=== PATIENT | female | born 1950 | race African-American/Black ===

== ENCOUNTER → 2019-07-01 11:06 | Outpatient (CLI) | payer BC, SELFPAY ==
--- NOTE | ~2019-07-01 | XR_ITS ---
EXAMINATION: XR shoulder RT min 2V DATE: 07/01/2019 11:29 INDICATION: Right arm pain. TECHNIQUE: 4 views of right shoulder were obtained. COMPARISON: None. FINDINGS: Bone alignment is normal. No fracture. There is mild osteoarthritis of glenohumeral joint a nd acromioclavicular joint. There is a dystrophic calcification posterior to the humeral head. IMPRESSION: 1. Mild polyarticular osteoarthritis. Reviewed, dictated and finalized at location A. D MARKETING SPECIALIST
--- NOTE | ~2019-07-01 | XR_ITS ---
EXAMINATION: XR elbow RT 2V DATE: 07/01/2019 11:29 INDICATION: Right arm pain. TECHNIQUE: 2 views of the right elbow were obtained. COMPARISON: None. FINDINGS: Bone alignment is normal. No fracture. There is mild elbow joint osteoarthritis. IMPRESSION: 1. Mild elbow joint osteoarthritis. Reviewed, dictated and finalized at location A. RANCE ADJUSTER
== END ==
PROVIDERS: PCP Family Medicine; Visit Provider Family Medicine
DX: M79.601 Pain in right arm (principal); M15.9 Polyosteoarthritis, unspecified
CPT/HCPCS: 73030; 73070

== ENCOUNTER → 2021-01-10 12:39 | Outpatient (CLI) | payer MEDICARE, SELFPAY ==
--- NOTE | ~2021-01-10 | XR_ITS ---
XR lumbar spine min 4V DATE: 01/10/2021 14:04 INDICATION: Low back pain TECHNIQUE: AP, lateral, coned lateral lumbosacral views and bilateral oblique views COMPARISON: None FINDINGS: There is mild levoscoliosis. No fracture or bone destruction. The lumbar pedicles are intact. There is moderate degenerative disc disease at L1-2, severe degenerative disc disease at L2-3 and mo derately severe degenerative disc disease at L3-4 and L4-5. There is associated minimal retrolisthesis at L2-3. L5-S1 interspace is well preserved. No fracture or bone destruction is detected. The lumbar pedicles are intact. There is degenerative change at the apophyseal joints but no associated anterolisthesis. The sacroiliac joints are intact. IMPRESSION: Multilevel degenerative disc disease Reviewed, dictated and finalized at location A.
== END ==
PROVIDERS: PCP Family Medicine; Visit Provider Physician Assistant
DX: M51.36 Other intervertebral disc degeneration, lumbar region (principal)
CPT/HCPCS: 72110

== ENCOUNTER → 2021-07-01 14:47 | Outpatient (CLI) | payer MEDICARE, SELFPAY ==
--- NOTE | ~2021-07-01 | MM_ITS ---
EXAMINATION: MM screening virgil BI w armani HISTORY: Screening TECHNIQUE: Craniocaudal and mediolateral oblique 3-D tomosynthesis images were obtained and synthetic 2-D images were generated. CAD analysis was submitted and interpreted. COMPARISON: Comparison to multiple prior studies sequentially, with oldest reviewed study dated 06/2011. BREAST PARENCHYMAL COMPOSITION: There are scattered areas of fibroglandular density. FINDINGS: There is no evidence of suspicious mass, calcification, or architectural distortion to sugg est malignancy in either breast. There has been no suspicious interval change. IMPRESSION: 1. No mammographic evidence of malignancy. 2. Recommend routine screening mammography in one year. BI-RADS Category 1: Negative Reviewed, dictated and finalized at location A. NG MACHINE OPERATOR
== END ==
PROVIDERS: PCP Obstetrics & Gynecology; Visit Provider Obstetrics & Gynecology
DX: Z12.31 Encounter for screening mammogram for malignant neoplasm of breast (principal)
CPT/HCPCS: 77063; 77067

== ENCOUNTER 2022-07-06 08:54 | Emergency (ER) | payer MEDICARE, SELFPAY ==
--- NOTE | ~2022-07-06 | CT_ITS ---
EXAMINATION: CT abdomen pelvis wo con DATE: 07/06/2022 12:40 INDICATION: Flank pain TECHNIQUE: Computed tomography (CT) of the abdomen and pelvis was performed without intravenous contr ast. The dose-length product was 1074.72 mGy-cm. Automated exposure control and iterative reconstruct ion technique were employed. COMPARISON: None. FINDINGS: There is a 2.3 cm right middle lobe nodule, suspicious for malignancy. This abuts the right cardiac contour making percutaneous biopsy difficult. There is atherosclerosis and ectasia of the de scending thoracic aorta with fusiform aneurysm measuring 4.2 cm. There is mild diffuse thickening of the gastric wall. No lymphadenopathy. Colonic diverticulosis without evidence for diverticulitis. The liver, spleen, pancreas, adrenal glands and left kidney are unremarkable. Right kidney is unremar kable. No hydronephrosis. Gallbladder is present. There is a cyst of the liver, left hepatic lobe jong suring 1.8 cm. The spleen, pancreas, adrenal glands and kidneys are unremarkable. No ureteral stones or hydronephrosis. Gallbladder is present. Colonic diverticulosis without evidence for diverticulitis . Nonobstructive bowel pattern. There is levoscoliosis of the lumbar spine. There is moderate lumbar spondylosis. IMPRESSION: 1. No acute abdominal abnormality. 2: Right middle lobe nodule measuring 2.3 cm, abutting the right cardiac contour, suspicious for bro nchogenic carcinoma. 3: Atherosclerosis with fusiform descending thoracic aortic aneurysm measuring 4.2 cm. Reviewed, dictated and finalized at location A. COVERER IMPRESSION: 1. No acute abdominal abnormality. 2: Right middle lobe nodule measuring 2.3 cm, abutting the right cardiac conto ur, suspicious for bronchogenic carcinoma. 3: Atherosclerosis with fusiform descending thoracic aortic aneurysm measuring 4.2 cm.
[2022-07-06 08:59] VITALS: BP 149/109; PULSE 54; RESP 15; TEMP 36.6; O2SAT 100
[2022-07-06 09:33] LABS: Basophils Absolute Auto 0.1 K/mm3 (0.0-0.1); Basophils Percent Auto 0.9 % (0.2-1.2); Eosinophils Absolute Auto 0.1 K/mm3 (0-0.3); Eosinophils Percent Auto 0.9 % (0-4.4); Hematocrit 38.4 % (37.0-47.0); Hemoglobin 12.4 g/dL (12.0-15.0); Immature Granulocyte Absolute 0.03 K/mm3 (0.00-0.031); Immature Granulocyte Percent A 0.5 % (0-0.5); Lymphocytes Absolute Auto 2.26 K/mm3 (0.9-3.2); Lymphocytes Percent Auto 34.7 % (18.3-44.2); Mean Corpuscular HGB Conc 32.3 g/dl (32-36); Mean Corpuscular Hemoglobin 30.4 pg (26-34); Mean Corpuscular Volume 94.1 fl (80-100); Mean Platelet Volume 11.2 fl (7.4-10.4); Monocytes Absolute Auto 0.6 K/mm3 (0.1-0.6); Monocytes Percent Auto 8.6 % (2.6-8.5); Neutrophils Absolute Auto 3.6 K/mm3 (1.3-6.7); Neutrophils Percent Auto 54.4 % (45.5-73.1); Platelet Count Result 211 k/mm3 (150-375); Red Blood Count 4.08 M/mm3 (4.2-5.4); Red Cell Distribution Width 13.4 % (11.5-14.5); White Blood Count 6.5 K/mm3 (4.5-10.0)
[2022-07-06 09:41] LABS: Alanine Aminotransferase 23 U/L (6-35); Albumin Level 4.2 g/dL (3.5-5.1); Alkaline Phosphatase 107 U/L (38-126); Anion Gap 4 mmol/L (8-16); Aspartate Amino Transferase 34 U/L (14-36); Bilirubin,Total 0.8 mg/dL (0.2-1.3); Blood Urea Nitrogen 27 mg/dL (7-17); Calcium 9.2 mg/dL (8.4-10.2); Carbon Dioxide 28 mmol/L (22-30); Chloride 107 mmol/L (98-107); Estimated CRCL calculation 38 ml/min; Estimated Glomerular Filt Rate 39; Glucose 105 mg/dL (65-110); Lipase 56 U/L (23-300); Sodium 139 mmol/L (137-145)
--- NOTE | 2022-07-06 09:48 | ED.ABDPAIN ---
HPI - Abdominal Pain General Chief Complaint: Abdominal Pain Stated Complaint: woke up this morning with stomach pain Time Seen by Provider: 07/06/22 09:18 History of Present Illness HPI narrative: Patient is a 71-year-old female who presents ER with abdominal discomfort. Sudden onset this morning when waking up. Cramping in her epigastrium radiating around bilaterally to her back. Associate with diarrhea and some nausea. No vomiting. No fevers or chills or sweats. Reports left-sided upper abdominal cramping with right-sided back discomfort at this time. No difficulty breathing. No urinary frequency urgency or dysuria. No known sick contacts. No history of gallstones. Related Data Home Medications Medication Instructions Recorded Confirmed fluticasone propionate 50 1 spray intranasal DAILY 09/02/21 02/18/22 mcg/actuation nasal spray,suspension fexofenadine 30 mg tablet 30 mg PO DAILY 03/07/22 Allergies Allergy/AdvReac Type Severity Reaction Status Date / Time No Known Allergies Allergy Verified 03/07/22 09:12 Review of Systems Review of Systems: All systems reviewed & are unremarkable except as noted in HPI and below Constitutional: Constitutional: Denies chills, Denies fatigue and Denies fever(s) ENT: Denies nasal congestion and Denies sore throat Cardiovascular: Cardiovascular: Denies chest pain, Denies rapid heart rate and Denies radiating jaw, neck or arm pain Respiratory: Respiratory: Denies cough and Denies dyspnea Gastrointestinal: Gastrointestinal: Reports abdominal pain, Reports diarrhea, Reports nausea and Denies vomiting Genitourinary: Genitourinary: Denies hematuria, Denies nocturia, Denies dysuria and Denies flank pain Musculoskeletal: Musculoskeletal: Reports back pain, Denies arthralgias and Denies joint swelling [facility] Past Medical History Medical History Chronic rhinitis Essential (primary) hypertension Hyperparathyroidism MICHAEL on CPAP Rhinitis Subaortic stenosis Surgical History Surgical History History of cataract extraction 09/11/2010 History of salpingectomy Right side 09/12/2013 Family History Family History Mother Diabetes mellitus Family history of arthritis Father Patient's father is in good health Social History Social History Smoking status: Never smoker Second hand tobacco smoke exposure: No Alcohol intake: never Substance use: never Substance use type: does not use Living arrangements: with family Occupation/Education: occupation Gender identity (if verbalized by the patient): Female Spiritual care concerns: Yes Agree to blood products: Yes Exam Narrative: GENERAL: Well-appearing, well-nourished, and in no acute distress. HEAD: Normocephalic, atraumatic. EYES: PERRL and EOMI. ENT: Mucous membranes moist. CHEST: Clear to auscultation. No respiratory distress. HEART: Regular rate and rhythm. Normal peripheral pulses. ABDOMEN: Soft, nontender, nondistended. No CVA tenderness. EXTREMITIES: Normal range of motion. No edema. SKIN: Warm, dry, no rash. NEURO: Alert and oriented x3. PSYCH: Normal mood and affect. Course Course Emergency Course: Patient informed of lab results and imaging results. Discussed need for follow-up with Dr. Kasper for further evaluation of the lung nodule which could represent bronchogenic carcinoma. Milligram nausea or any discomfort and is ready for discomfort. Consultations Consultation #1: Discussed case with Dr. Cat. Discussed the lung nodule that is concerning for bronchogenic carcinoma. He will send a message to the patient's PCP Dr. Potter so this can continue to be worked up. Date: 07/06/22 Time: 13:07 Vital Signs Vital signs: Vital Signs Woodson
[2022-07-06] MEDS: SODIUM CHLORIDE 0.9% IV 1,000 ML 999 ML IV CONT (09:56)
[2022-07-06] MEDS: MORPHINE SULFATE (*CRX) 4 MG/ML INJ IV PUSH (09:56)
[2022-07-06] MEDS: ONDANSETRON INJ 4 MG/2 ML VIAL IV PUSH (09:57)
--- NOTE | 2022-07-06 10:13 | PC.NURSE ---
Pt attempted to give urine sample and is unable to at this time.
[2022-07-06 12:16] LABS: Appearance Urine Clear (Clear); Bilirubin Urine 1+ (Negative); Blood Urine Negative (Negative); Color Urine Yellow (Yellow); Glucose Urine UA Negative (Negative); Ketones Urine Trace mg/dL (Negative); Leukocyte Esterase Ur Negative LEU/UL (Negative); Nitrate Urine Negative (Negative); Protein Urine Trace mg/dL (Negative); Specific Grav Ur 1.025 (1.001-1.035); Urobilinogen Urine 0.2 mg/dL (<2.0); pH Urine 5.5 (5.0-9.0)
[2022-07-06 12:21] LABS: Mucus Urine Few /lpf; Squamous Epithelial Cell Urine Rare /hpf (Few); WBC Urine 0-3 /hpf
[2022-07-06 12:22] LABS: Add Urine Microscopic? YES
[2022-07-06 13:31] VITALS: BP 123/69; PULSE 48; RESP 16; O2SAT 95
== END 2022-07-06 13:36 | disposition home or self-care (01) ==
PROVIDERS: Emergency Provider Emergency Medicine; PCP Family Medicine
DX: R91.1 Solitary pulmonary nodule (principal); R11.0 Nausea; I10 Essential (primary) hypertension; E21.3 Hyperparathyroidism, unspecified; I42.1 Obstructive hypertrophic cardiomyopathy; G47.33 Obstructive sleep apnea (adult) (pediatric); Z98.49 Cataract extraction status, unspecified eye; Z90.79 Acquired absence of other genital organ(s)
CPT/HCPCS: 36415; 51701; 74176; 80053; 81001; 83690; 85025; 96361; 96374; 96375; 99284; J2270; J2405; J7030

== ENCOUNTER 2022-07-22 15:16 | Outpatient (CLI) | payer MEDICARE, SELFPAY ==
--- NOTE | ~2022-07-22 | CT_ITS ---
EXAMINATION:CT diagnostic chest wo con DATE: 07/22/2022 15:39 INDICATION: Lung mass. TECHNIQUE: Computed tomography (CT) of the chest was performed without intravenous contrast. Automate d exposure control and iterative reconstruction technique were employed. The dose-length product (DLP ) was 329.29 mGy-cm. COMPARISON: CT abdomen and pelvis 07/06/2022 FINDINGS: The lungs demonstrate mild atelectasis. There is a 2.0 cm nodule in right middle lobe abutt ing the heart. There is a 6 mm nodule in right lower lobe. There is a small left pleural effusion. Th ere is a 2.1 cm cyst in the liver. Cardiomegaly is noted. There is a small pericardial effusion. The aorta measures 3.7 cm at the sinuses of Valsalva, 3.2 cm at the sinotubular junction, 4.0 cm in the m id ascending aorta, 3.8 cm in the aortic isthmus, 5.1 cm in the proximal descending aorta, and 4.6 cm in the distal descending aorta. There is asymmetric peripheral hyperdensity in the descending aorta. There is mild thoracic spondylosis. Thoracic dextrocurvature is noted. IMPRESSION: 1. 2.0 cm nodule in right lung middle lobe abutting the heart, consistent with primary bronchogenic c arcinoma. 2. 6 mm nodule in right lung lower lobe, probably benign. 3. 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 Asymmetric peripheral hyperdensity in the a sanju is suspicious for a subacute intramural hematoma. Chest CTA is recommended. I called this result to Bola Johnston. 4. Small left pleural effusion, new from 07/06/22. 5. Small pericardial effusion, new from 07/06/22. Reviewed, dictated and finalized at location A. ATION TENDER HELPER IMPRESSION: 1. 2.0 cm nodule in right lung middle lobe abutting the heart, consistent with primary bronchogenic carcinoma. 2. 6 mm nodule in right lung lower lobe, probably benign. 3. 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 Asymmetric peripheral hyperdensity in the aorta is suspicious for a subacute intramural hematoma. Ch est CTA is recommended. I called this result to Bola Johnston. 4. Small left pleural effusion, new from 07/06/22. 5. Small pericardial effusion, new from 07/06/22.
== END 2022-07-22 15:17 | disposition home or self-care (01) ==
PROVIDERS: PCP Family Medicine; Visit Provider Internal Medicine Critical Care Medicine
DX: R91.8 Other nonspecific abnormal finding of lung field (principal); J90 Pleural effusion, not elsewhere classified; I31.39 Other pericardial effusion (noninflammatory); I71.40 Abdominal aortic aneurysm, without rupture, unspecified
CPT/HCPCS: 71250

== ENCOUNTER 2022-07-23 17:36 | Emergency (ER) | payer MEDICARE, SELFPAY ==
[2022-07-23] VITALS (7 sets, daily range): BP systolic 117–143; BP diastolic 72–97; PULSE 67–85; RESP 16–33; TEMP 36.6–37.2; O2SAT 95–99
--- NOTE | ~2022-07-23 | CT_ITS ---
EXAMINATION: CTA chest DATE: 07/23/2022 19:10 INDICATION: poss intramural hematoma of thoracic aneurysm TECHNIQUE: Computed tomography (CT) of the chest was performed with 100 mL Omnipaque-350 intravenous contrast timed for arterial opacification. Automated exposure control and iterative reconstruction te chnique were employed. The dose-length product was 561.56 mGy-cm. COMPARISON: 07/22/2022. FINDINGS: CHEST: Thoracic aorta: 5.1 cm fusiform aneurysm of the aortic arch. Aorta measures 3.8 cm at the hiatus and 3.9 cm in the ascending aorta. Intramural thrombus extending from the arch at the level of the left s ubclavian origin, down the full length of the descending aorta and out of the [id number]. Maximum thickness of the intramural thrombus 1.6 cm. Narrowest point of the normal thoracic aortic lumen avery ures 3.1 cm. 0.7 x 1.7 cm ulcer-like projection of contrast into the mural thrombus just distal to th e arch. Lung parenchyma and airways: Motion artifact. Senescent changes. Lingular and bibasilar scar/atelecta sis. 2 cm right middle lobe nodule. Thoracic inlet, axillae and chest wall: No thyroid or soft tissue mass. No axillary lymphadenopathy. Mediastinum: No mass or lymphadenopathy. Heart and pericardium: Cardiomegaly. Aortic valve calcification. Coronary artery calcifications: Moderate. Pleura: Small volume left pleural fluid collection. Upper abdomen: No significant finding. Thoracic bones: No acute osseous finding in the chest. IMPRESSION: 5.1 cm fusiform aneurysm of the descending thoracic aorta, with associated Newberry B type intramural thrombus measuring up to 1.6 cm in greatest thickness. 1.7 cm penetrating ulcer in the proximal aspe ct of the descending thoracic aorta. Recommend vascular consultation. Reviewed, dictated and finalized at location K. OUNDING PHARMACY TECHNICIAN IMPRESSION: 5.1 cm fusiform aneurysm of the descending thoracic aorta, with associated Nick duong B type intramural thrombus measuring up to 1.6 cm in greatest thickness. 1 .7 cm penetrating ulcer in the proximal aspect of the descending thoracic aorta . Recommend vascular consultation.
--- NOTE | 2022-07-23 17:53 | ECG_ITS ---
Measurements Intervals [place] Rate: 83 P: 12 IN: 189 QRS: -2 QRSD: 110 T: 160 QT: 412 QTc: 487 Interpretive Statements SINUS RHYTHM POSSIBLE LEFT ATRIAL ENLARGEMENT LEFT VENTRICULAR HYPERTROPHY AND ST-T CHANGE ST-T WAVE ABNORMALITY IN ANTEROLATERAL LEADS- CONSIDER ISCHEMIA BASELINE ARTIFACT- I, II, III, AVR, AVL, AVF ABNORMAL ECG NO PREVIOUS ECG AVAILABLE FOR COMPARISON Electronically Signed On 07-23-2022 19:00:37 ROVING DEPARTMENT END FINDER by Rubin Carrizales D.O.
[2022-07-23 18:01] LABS: Basophils Absolute Auto 0.1 K/mm3 (0.0-0.1); Basophils Percent Auto 0.6 % (0.2-1.2); Eosinophils Absolute Auto 0.1 K/mm3 (0-0.3); Eosinophils Percent Auto 1.4 % (0-4.4); Hematocrit 35.6 % (37.0-47.0); Hemoglobin 11.5 g/dL (12.0-15.0); Immature Granulocyte Absolute 0.03 K/mm3 (0.00-0.031); Immature Granulocyte Percent A 0.3 % (0-0.5); Lymphocytes Absolute Auto 2.44 K/mm3 (0.9-3.2); Lymphocytes Percent Auto 23.9 % (18.3-44.2); Mean Corpuscular HGB Conc 32.3 g/dl (32-36); Mean Corpuscular Hemoglobin 29.9 pg (26-34); Mean Corpuscular Volume 92.7 fl (80-100); Mean Platelet Volume 10.3 fl (7.4-10.4); Monocytes Absolute Auto 1.2 K/mm3 (0.1-0.6); Monocytes Percent Auto 11.3 % (2.6-8.5); Neutrophils Absolute Auto 6.4 K/mm3 (1.3-6.7); Neutrophils Percent Auto 62.5 % (45.5-73.1); Platelet Count Result 471 k/mm3 (150-375); Red Blood Count 3.84 M/mm3 (4.2-5.4); Red Cell Distribution Width 13.1 % (11.5-14.5); White Blood Count 10.2 K/mm3 (4.5-10.0)
[2022-07-23 18:20] LABS: Alanine Aminotransferase 24 U/L (6-35); Albumin Level 4.1 g/dL (3.5-5.1); Alkaline Phosphatase 182 U/L (38-126); Anion Gap 8 mmol/L (8-16); Aspartate Amino Transferase 29 U/L (14-36); Bilirubin,Total 1.5 mg/dL (0.2-1.3); Blood Urea Nitrogen 22 mg/dL (7-17); Calcium 9.4 mg/dL (8.4-10.2); Carbon Dioxide 25 mmol/L (22-30); Chloride 107 mmol/L (98-107); Estimated CRCL calculation 36 ml/min; Estimated Glomerular Filt Rate 36; Glucose 112 mg/dL (65-110); Lipase 109 U/L (23-300); Potassium 3.5 mmol/L (3.4-5.0); Sodium 140 mmol/L (137-145)
[2022-07-23 18:28] LABS: INR 1.2; Prothrombin Time 15.1 Seconds (11.1-14.7)
[2022-07-23 18:29] LABS: Partial Thromboplastin Time 36.7 SECONDS (22.3-36.8)
[2022-07-23 18:30] LABS: Troponin I 0.015 ng/mL (0.000-0.034)
--- NOTE | 2022-07-23 18:40 | ED.CHESTPAIN ---
HPI - Chest Pain General Chief Complaint: Chest Pain Stated Complaint: sent by PCP Time Seen by Provider: 07/23/22 18:05 History of Present Illness HPI narrative: Patient is a 71-year-old female presenting with abnormal outpatient CT scan. Patient states that she was recently seen here with abdominal pain. An abdominal CT was obtained at that time which showed a spot on her lungs. She followed up with her skin lifter bacon who obtained a chest CT. This was obtained yesterday and she received a call today to come to the ER for more imaging. States that she had some back pain yesterday but she no longer does. States that she feels well currently. Denies chest pain, shortness of breath, lightheadedness, numbness or weakness, vomiting, abdominal pain. Related Data Home Medications Medication Instructions Recorded Confirmed fluticasone propionate 50 1 spray intranasal DAILY 09/02/21 07/07/22 mcg/actuation nasal spray,suspension fexofenadine 30 mg tablet 30 mg PO DAILY 03/07/22 07/07/22 Allergies Allergy/AdvReac Type Severity Reaction Status Date / Time No Known Allergies Allergy Verified 07/23/22 17:51 Review of Systems Review of Systems: All systems reviewed & are unremarkable except as noted in HPI and below PMFSH Past Medical History Medical History Back pain Chronic rhinitis Essential (primary) hypertension Hyperparathyroidism MICHAEL on CPAP Rhinitis Subaortic stenosis Surgical History Surgical History History of cataract extraction 09/11/2010 History of salpingectomy Right side 09/12/2013 Family History Family History Mother Diabetes mellitus Family history of arthritis Father Patient's father is in good health Social History Social History Smoking status: Never smoker Second hand tobacco smoke exposure: No Alcohol intake: never Substance use: never Substance use type: does not use Living arrangements: with family Occupation/Education: occupation Gender identity (if verbalized by the patient): Female Spiritual care concerns: Yes Agree to blood products: Yes Exam Narrative: GENERAL: Well-appearing, well-nourished, and in no acute distress. HEAD: Normocephalic, atraumatic. EYES: PERRLA and EOMI. ENT: Nares clear, no rhinorrhea or epistaxis. Mucous membranes moist. NECK: Supple. CHEST: Clear to auscultation. No respiratory distress. HEART: Regular rate and rhythm. No murmur heard. Normal peripheral pulses. ABDOMEN: Soft, nontender, nondistended EXTREMITIES: Normal range of motion. No edema. SKIN: Warm, dry, no rash. NEURO: No focal deficits. Alert and oriented x3. PSYCH: Normal mood and affect. Course Vital Signs Vital signs: Vital Signs Temperature 97.8 F 07/23/22 17:46 Pulse Rate 85 07/23/22 17:46 Respiratory Rate 18 07/23/22 17:46 Blood Pressure 125/93 H 07/23/22 17:46 Pulse Oximetry 98 07/23/22 17:46 Oxygen Delivery Room Air 07/23/22 17:46 Temperature 98.9 F 07/23/22 22:35 Pulse Rate 77 07/23/22 22:35 Respiratory Rate 16 07/23/22 22:35 Blood Pressure 137/97 H 07/23/22 22:35 Pulse Oximetry 96 07/23/22 22:35 Oxygen Delivery Room Air 07/23/22 17:51 MDM - Chest Pain MDM Narrative Medical decision making narrative: Patient is a 71-year-old female presenting for abnormal outpatient CT scan. Vitals within normal limits. Patient is well-appearing and in no acute distress. Exam remarkable for the above. Per chart review, outpatient chest CT shows possible subacute intramural hematoma of thoracic descending aneurysm. CTA chest advised. This has been ordered. Blood work is similar to prior values. CTA chest shows 5.1 cm fusiform aneurysm of the descending thoracic aorta, with associate
--- NOTE | 2022-07-23 19:09 | PC.NURSE ---
bedside shift report given to nadya romero
[2022-07-23] MEDS: SODIUM CHLORIDE 0.9% IV 1,000 ML 999 ML IV CONT (19:31)
== END 2022-07-23 22:37 | disposition home or self-care (01) ==
PROVIDERS: Emergency Medicine; Emergency Provider Emergency Medicine; PCP Family Medicine
DX: I71.23 Aneurysm of the descending thoracic aorta, without rupture (principal); I71.9 Aortic aneurysm of unspecified site, without rupture; I10 Essential (primary) hypertension; G47.33 Obstructive sleep apnea (adult) (pediatric)
CPT/HCPCS: 36415; 71275; 80053; 83690; 84484; 85025; 85610; 85730; 93005; 96360; 96361; 99284; J7030; Q9967

== ENCOUNTER 2022-08-19 07:37 | Outpatient (CLI) | payer MEDICARE, SELFPAY ==
--- NOTE | ~2022-08-19 | PE_ITS ---
EXAMINATION: PET skull to mid thigh DATE: 08/19/2022 09:36 INDICATION: Lung nodule TECHNIQUE: Blood glucose level was 109 mg/dL. 10.314 mCi of 18-fluorodeoxyglucose (18-FDG) was admini stered i.v. Low dose computed tomography (CT) images were acquired from the base of the brain to the proximal thighs for attenuation correction and anatomic localization. Positron emission tomography (P ET) images were acquired in the same distribution beginning 59 minutes after injection. The dose-randolph th product (DLP) was 789.73 mGy-cm. COMPARISON: 07/22/2022 FINDINGS: Head/neck: No abnormal FDG uptake is identified. FDG uptake in the oral cavity without suspicious CT correlate is likely physiologic. There are no pathologically enlarged lymph nodes. Chest: There is a 2 cm nodule of the right middle lobe abutting the heart with abnormal FDG uptake an d SUV max of 7.9. The 6 mm nodule in the medial right lower lobe described on the comparison does not demonstrate FDG uptake, but this could be due to small size. Again noted is a 5.1 cm fusiform aneury sm of the proximal descending aorta. No pathologically enlarged thoracic lymph nodes are identified. The heart size is normal. No pleural effusion or pneumothorax. There is mild dependent atelectasis. Abdomen/pelvis/proximal thighs: No abnormal FDG uptake is identified. Physiologic FDG activity is pre sent in the bowel and urinary tract. There is a 1.8 cm cyst in the left hepatic lobe. The spleen, duron creas, gallbladder, and adrenal glands are normal. The kidneys are unremarkable. No pathologically en larged abdominal or pelvic lymph nodes are identified. No free intraperitoneal gas or evidence of bow el obstruction. Colonic diverticulosis is present without evidence of diverticulitis. Musculoskeletal: No abnormal FDG uptake is identified. There is moderate to severe cervical and lumba r spondylosis. IMPRESSION: 1. 2 cm nodule of the right middle lobe with abnormal FDG uptake, consistent with primary bronchogeni c carcinoma. 2. 6 mm nodule in the medial right lower lobe without associated FDG uptake, possibly due to small si ze. Continued follow-up is recommended. 3. Stable fusiform aneurysm of the proximal descending aorta. Reviewed, dictated and finalized at location L. IMPRESSION: 1. 2 cm nodule of the right middle lobe with abnormal FDG uptake, consistent wi th primary bronchogenic carcinoma. 2. 6 mm nodule in the medial right lower lobe without associated FDG uptake, po ssibly due to small size. Continued follow-up is recommended. 3. Stable fusiform aneurysm of the proximal descending aorta.
[2022-08-19 08:01] LABS: Glucose Point of Care 109 mg/dl (65-105)
== END 2022-08-19 07:38 | disposition home or self-care (01) ==
PROVIDERS: PCP Family Medicine; Visit Provider Internal Medicine Critical Care Medicine
DX: R91.8 Other nonspecific abnormal finding of lung field (principal); I71.9 Aortic aneurysm of unspecified site, without rupture
CPT/HCPCS: 78815; A9552

== ENCOUNTER 2022-09-08 10:22 | Outpatient (CLI) | payer MEDICARE, SELFPAY ==
--- NOTE | 2022-09-01 12:39 | PC.NURSE ---
Pre Radiology instructions Report to the [facility] on date _09/08/22____ at time __1030 for procedure Time: 1100____ YOU MAY BE MONITORED AT HOSPITAL FOR UP TO 4 HOURS AFTER YOUR PROCEDURE. A visitor will be allowed to accompany the patient into the hospital. You and your visitor will be asked to self-screen and do not enter if you have any COVID symptoms. A mask is OPTIONAL within the hospital. Patients are to have no food or drink 6 hours prior to procedure time Driving will be restricted after the procedure, you must have a person to drive you home. Labs will be drawn in preop area and once reviewed, you will be taken to radiology area for procedure. When the procedure is completed, you will be taken to outpatient where you will be monitored for several hours. You may have one visitor in this area. Other than holding anti-coagulants, patient may take other medication(s) as scheduled. Prior to your appointment date patients are instructed to hold anti-coagulants after discussing with ordering provider to stop. If unable to discontinue anti-coagulants please notify radiologist. ? No aspirin or warfarin (Coumadin) for 7 days prior to the procedure. ? No clopidogrel (Plavix), ticagrelor (Brilinta), prasugrel (Effient) or dabigatran (Pradaxa) for 5 days prior to the procedure. ? No rivaroxaban (Xarelto), apixaban (Eliquis), dipyridamole (Aggrenox or Persantine) or cilostazol (Pletal) for 2 days prior to the procedure. Medications to discontinue per physician: ___NONE Date to take last dose: Please leave all valuables, including medications, at home the day of procedure. The hospital will not accept responsibility for valuables. Wear comfortable, loose fitting clothing.? Follow any additional instructions given to you from ordering provider. Telephone instructions given to ___PATIENT and asked if any additional questions and then verbalized understanding. Patient advised to call scheduling provider office or registration scheduling [phone] if any additional questions.
[2022-09-01 12:44] VITALS: BMI 29.8
[2022-09-08] VITALS (8 sets, daily range): BP systolic 111–143; BP diastolic 73–86; PULSE 50–56; RESP 12–16; TEMP 36.6; O2SAT 95–100
--- NOTE | ~2022-09-08 | CT_ITS ---
EXAMINATION: CT biopsy lung w/imaging DATE: 09/08/2022 12:17 INDICATION: Right middle lobe pulmonary nodule TECHNIQUE: The procedure including the risks and benefits was discussed with the patient. Risks discu ssed included infection, approximately 1/20 risk of symptomatic hemorrhage beyond mild hemoptysis, ap proximately 1/3 risk of pneumothorax, and approximately 1/10 risk of pneumothorax severe enough to wa rrant chest tube placement. The patient understood the risks and agreed to proceed. The patient was p laced supine. The skin overlying the right parasternal anterior chest was prepped and draped in ster ile fashion. Anesthetic was administered with 1% lidocaine subcutaneously. A 19 gauge outer needle was advanced under CT guidance to the lesion of interest. A 20 gauge core biopsy needle was then used to obtain 3 core biopsy specimens. The needle was removed and the entry site was cleaned and dressed . There were no immediate complications. The dose-length product was 252.19 mGy-cm. FINDINGS: CT images demonstrate the outer needle tip adjacent to 2.5 x 1.6 cm right middle lobe nodul e. IMPRESSION: 1. Successful CT-guided biopsy of a 2.5 x 1.6 cm right middle lobe nodule. Reviewed, dictated and finalized at location A.
--- NOTE | ~2022-09-08 | XR_ITS ---
EXAMINATION: XR chest 1V DATE: 09/08/2022 12:20 INDICATION: Right lung nodule status post percutaneous biopsy. TECHNIQUE: A single frontal view of the chest was obtained. COMPARISON: Chest 2 views 01/04/2016 FINDINGS: There are airspace opacities in right middle lobe. No pleural effusion or pneumothorax. Car diomegaly is noted. There is enlargement of the aortic arch. IMPRESSION: 1. Airspace opacities in right middle lobe, consistent with postbiopsy hemorrhage. 2. Cardiomegaly. 3. Enlargement of the aortic arch, consistent with the type B dissecting aneurysm seen on prior imagi ng. Reviewed, dictated and finalized at location A. IMPRESSION: 1. Airspace opacities in right middle lobe, consistent with postbiopsy hemorrha ge. 2. Cardiomegaly. 3. Enlargement of the aortic arch, consistent with the type B dissecting aneury sm seen on prior imaging.
--- NOTE | ~2022-09-08 | XR_ITS ---
EXAMINATION: XR chest 1V portable DATE: 09/08/2022 13:25 INDICATION: Lung nodule status post percutaneous biopsy. TECHNIQUE: A single frontal view of the chest was obtained. COMPARISON: Chest single view at 12:12 PM FINDINGS: There are airspace opacities in right perihilar region. There is mild atelectasis in left m id and lower lung zones. There is a small left pleural effusion. No pneumothorax. Cardiomegaly is not ed. There is enlargement of the aortic arch. IMPRESSION: 1. Airspace opacities in right perihilar region, likely postbiopsy hemorrhage. 2. Stable small left pleural effusion. 3. Cardiomegaly. 4. Enlargement of the aortic arch correlating with a dissecting aneurysm on prior CT Reviewed, dictated and finalized at location A. IMPRESSION: 1. Airspace opacities in right perihilar region, likely postbiopsy hemorrhage. 2. Stable small left pleural effusion. 3. Cardiomegaly. 4. Enlargement of the aortic arch correlating with a dissecting aneurysm on susan or CT
--- NOTE | ~2022-09-08 | XR_ITS ---
EXAMINATION: XR chest 1V portable Exam Date/Time: 09/08/2022 15:03 CDT HISTORY: Post Image Guided Lung Biopsy, 3 hour Comparison: 09/08/2022 at 1:21 PM. RESULT: Lines, tubes, and devices: None. Lungs and pleura: Persistent airspace opacities in the right infrahilar region. Cardiomediastinal silhouette: Stable cardiomegaly and aortic knob enlargement. Other: No acute osseous or upper abdominal finding. IMPRESSION: Stable postbiopsy hemorrhage. No pneumothorax. Reviewed, dictated and finalized at location K.
--- NOTE | 2022-09-08 16:12 | SUR.PHASEII ---
1530 final chest xray taken, dr valladares saw pt and is ok for discharge.
== END 2022-09-08 15:50 | disposition home or self-care (01) ==
PROVIDERS: Radiology Diagnostic Radiology; PCP Family Medicine; Visit Provider Internal Medicine Critical Care Medicine
PROC: BB24ZZZ Computerized Tomography (CT Scan) of Bilateral Lungs (ICD-10-PCS; CPT 32408; principal; 2022-09-08 11:00)
DX: C34.2 Malignant neoplasm of middle lobe, bronchus or lung (principal)
CPT/HCPCS: 32408; 71045; 88305; 88342

== ENCOUNTER 2022-09-15 15:18 | Outpatient (CLI) | payer MEDICARE, SELFPAY ==
[2022-09-18 02:40] LABS: CA-125 22 U/mL (<35)
== END 2022-09-15 15:19 | disposition home or self-care (01) ==
LOC: ANHLAB 15:20
PROVIDERS: PCP Family Medicine; Visit Provider Internal Medicine Hematology & Oncology
DX: C54.1 Malignant neoplasm of endometrium (principal)
CPT/HCPCS: 36415; 86304

== ENCOUNTER 2022-09-18 09:49 | Outpatient (CLI) | payer MEDICARE, SELFPAY ==
--- NOTE | 2022-09-18 16:56 | WPDPFTINT ---
PFT Procedure Performed PFT Procedure Performed Plethysmography (Lung Vol) Diffusing Cap (DLCO) Flow Vol Loop Spirometry w/o Bronchodil PFT Interpretation This is a pulmonary function test with spirometry, plethysmography and diffusing capacity. The test was performed and results interpreted in accordance with the 2019 and 2005 ATS/ERS Task Force guidelines respectively using the Global Lung Function Initiative-2012 reference equations. Patient demonstrated good effort and cooperation. Reproducibility criteria were met. The quality of the spirometry maneuver was Grade A. Findings: Spirometry: The contour the inspiratory and expiratory flow tracing are normal. The FVC is 2.52 L, 84% predicted. The FEV1 is 2.04 L, 89% predicted. The FEV1: FVC ratio is 81%. Plethysmography: The total lung capacity is 4.91 L, 93% predicted. The functional residual capacity 2.70 L, 78% predicted. The residual volume is 2.31 L, 100% predicted. Diffusion capacity: The diffusing capacity unadjusted for hemoglobin and carboxyhemoglobin is 16.7, 73% predicted. The diffusing capacity adjusted for alveolar volume is 4.61, 115% predicted. Impression: The spirometry is normal without evidence of an obstructive abnormality. The lung volumes are normal. The diffusing capacity is normal. There are no prior studies for comparison
== END 2022-09-18 09:50 | disposition home or self-care (01) ==
PROVIDERS: PCP Family Medicine; Visit Provider Internal Medicine Hematology & Oncology
DX: C34.90 Malignant neoplasm of unspecified part of unspecified bronchus or lung (principal)
CPT/HCPCS: 94375; 94726; 94729

== ENCOUNTER 2022-10-29 09:23 | Outpatient (CLI) | payer MEDICARE, SELFPAY ==
[2022-11-03 00:36] LABS: CA-125 12 U/mL (<35)
== END 2022-10-29 09:24 | disposition home or self-care (01) ==
LOC: ANHLAB 10-30 11:31
PROVIDERS: PCP Family Medicine; Visit Provider Internal Medicine Hematology & Oncology
DX: C54.1 Malignant neoplasm of endometrium (principal)
CPT/HCPCS: 36415; 86304

== ENCOUNTER 2022-11-13 09:20 | Outpatient (CLI) | payer MEDICARE, SELFPAY ==
[2022-11-13 10:15] LABS: Partial Thromboplastin Time 29.6 SECONDS (22.3-36.8); Prothrombin Time 13.7 Seconds (11.1-14.7)
== END 2022-11-13 09:21 | disposition home or self-care (01) ==
LOC: ANHSURGERY 09:24
PROVIDERS: PCP Family Medicine; Visit Provider Surgery
DX: Z01.818 Encounter for other preprocedural examination (principal); C54.1 Malignant neoplasm of endometrium
CPT/HCPCS: 36415; 85610; 85730

== ENCOUNTER 2022-11-21 03:21 | Day surgery (SDC) | payer MEDICARE, SELFPAY ==
--- NOTE | 2022-11-12 10:47 | PC.NURSE ---
Report to the Outpatient Waiting Room, entrance under the green pavilion located off [facility], at time _0800 on date 11/21/22 . Planned Procedure Time: _1000 . Time changes happen often and if your time is changed the preop area will call you the afternoon before. - You and your visitor will be asked to self-screen and do not enter if you have any COVID symptoms. - A mask is optional within the hospital at this time. Patients may have clear liquids (water, carbonated beverages, clear teas, apple juice) until 3 hours prior to surgery with a maximum of 20 ounces. - No food from midnight until time of surgery - Infants may have breast milk until 4 hours before surgery, formula 6 hours prior to surgery. - Children will be allowed to drink immediately following surgery. If applicable, please bring a bottle or sippy cup to assist with drinking. Juice, water, soda, and popsicles are readily available. For infants on formula, please bring formula the day of surgery. Pacifiers are allowed. Take the following medications with a SIP of water the morning of surgery: _DILTIAZEM,,METOPROLOL DO NOT STOP ANY OF YOUR OTHER PRESCRIPTION MEDICATIONS PRIOR TO SURGERY ?EXCEPT THE FOLLOWING Medications to discontinue per physician ALL VITAMINS/SUPP 3 DAYS PRE OP.LAST DOSE 11/18/22 Please no make-up, nail ugandan, hairspray, perfume, deodorant, or body powder the day of surgery. No jewelry (including any body piercings) or valuables the day of surgery, leave them at home. Please take a shower or bath the night before, or the morning of, surgery with an antibacterial soap. Wear comfortable, loose fitting clothing. Children are encouraged to wear pajamas. - Jewelry must be removed prior to entering the operating room. Rings and piercings that are not removed may be cut off. - The hospital will not accept responsibility for valuables. - Please leave all valuables, including medications, at home the day of surgery. If you are going home after surgery, a licensed flatbed company driver must drive you home. - NO public transportation without another adult if you receive anesthesia. - We recommend that an adult stay with you for 24 hours following discharge. - We also recommend that you do not drive, make important decision, drink alcoholic beverages, or take any drugs that were not prescribed by your health care provider for at least 24 hours after your discharge time. For Pediatric surgeries, we recommend two adults accompany the child home. Follow any additional instructions given to you from your surgeon. If you or anyone in your household have experienced Covid symptoms in the past week, please notify your surgeon or the nurse liaison at the phone number below for possible testing. Telephone instructions given to __PATIENT and asked if any additional questions and then verbalized understanding. Patient advised to call surgeon office or pre surgery nurse liaison [phone] if any additional questions.
[2022-11-12 10:56] VITALS: BMI 29.4
--- NOTE | 2022-11-20 12:36 | WPDANESEPPF ---
Anes - Initial Pre Proc Eval Procedure: Operation Date: 11/21/22 07:30 Proposed Procedures p Insertion Lele Cath - Tino Osorio MD Date/Time: 11/20/22 12:36 Surgeon: Tino Osorio MD Pre Op Diagnosis: endometrial carcinoma Patient Data Age: 72 Gender: F Height: 1.78 m Weight: 92.99 kg Allergies Allergy/AdvReac Type Severity Reaction Status Date / Time No Known Allergies Allergy Verified 11/12/22 13:41 Home Medications Medication Instructions Recorded Confirmed Type fluticasone propionate 50 1 spray intranasal DAILY 09/02/21 11/12/22 History mcg/actuation nasal spray,suspension oxybutynin chloride 5 mg 5 mg PO DAILY #90 tabs 07/24/22 11/12/22 Rx tablet,extended release 24 hr calcitriol 0.25 mcg capsule 0.25 mcg PO DAILY #90 caps 07/28/22 11/12/22 Rx fexofenadine 180 mg tablet 180 mg PO DAILY 09/01/22 11/12/22 History ([facility] Allergy) diltiazem HCl 360 mg capsule,24 360 mg PO DAILY #100 caps 10/12/22 11/12/22 Rx hr,extended release allopurinol 300 mg tablet 300 mg PO DAILY #100 tabs 11/03/22 11/12/22 Rx metoprolol succinate 50 mg 150 mg PO DAILY 100 days #300 tabs 11/03/22 11/12/22 Rx tablet,extended release 24 hr omeprazole 40 mg capsule,delayed 40 mg PO DAILY #60 caps 11/03/22 11/12/22 Rx release ferrous sulfate 325 mg (65 mg 325 mg PO DAILY #30 tabs 11/04/22 11/12/22 Rx iron) tablet polyethylene glycol 3350 17 gram 17 g PO DAILY 11/12/22 11/12/22 History oral powder packet (Miralax) Results Review: All pre-operative results and documents have been reviewed as part of the pre-operative evaluation. [facility] Past Medical History Medical History (Updated 11/20/22 @ 12:39 by Mark Colón MD) Abnormal weight loss Adenocarcinoma Back pain Cardiomyopathy Chronic rhinitis Decreased appetite Descending thoracic aortic aneurysm Endometrial ca Essential (primary) hypertension Hyperparathyroidism Hypertrophic obstructive cardiomyopathy SVITLANA (iron deficiency anemia) MICHAEL on CPAP Pulmonary hypertension Rhinitis Subaortic stenosis Surgical History Surgical History History of cataract extraction 09/11/2010 History of salpingectomy Right side 09/12/2013 Family History Family History Mother Diabetes mellitus Family history of arthritis Father Patient's father is in good health Social History Social History Smoking status: Never smoker Second hand tobacco smoke exposure: No Alcohol intake: never Substance use: never Substance use type: does not use Living arrangements: with family Occupation/Education: occupation Gender identity (if verbalized by the patient): Female Sexual Orientation (if Verbalized by the Patient): Straight or Heterosexual Spiritual care concerns: No Agree to blood products: Yes Anes - Eval Final PreProcedure Day of Procedure 11/20/22 12:36 Patient weight: obese Heart: regular rate and rhythm Lungs: clear to auscultation and normal air movement Airway: Mallampati scale class II Neurological: alert and oriented Last oral intake: >/= 8 hours ASA classification: III Emergent: no Anesthetic plan: proceed Anesthesia type and monitoring: general GIVS Results Review: All pre-operative results and documents have been reviewed as part of the pre-operative evaluation. Informed Consent: The patient's anesthetic plan and its attendant risks and benefits were discussed with the patient/family/POA. Questions were solicited and answers provided to the satisfaction of the patient/family/POA.
--- NOTE | ~2022-11-21 | XR_ITS ---
EXAMINATION: XR chest port-a-cath/central DATE: 11/21/2022 08:48 INDICATION: Port catheter placement TECHNIQUE: frontal view of the chest was obtained. COMPARISON: Chest radiograph dated 09/08/[address] dated 07/23/2022 FINDINGS: Right subclavian central venous port catheter with distal tip in the midsuperior vena cava. Increased opacities in the left mid and lower lung zone. Right lung remains clear. No pleural effusion or pneu mothorax. Cardiomegaly. Aneurysmal dilation of the proximal descending thoracic aorta. IMPRESSION: 1. No pleural effusion or pneumothorax post was made of a right subclavian central venous port cathet er with distal tip in the midsuperior vena cava. 2. New opacities in the left mid and lower lung zone which could represent atelectasis or pneumonia. 3. Cardiomegaly. 4. Aneurysmal dilation of the proximal descending thoracic aorta. Reviewed, dictated and finalized at location B. IMPRESSION: 1. No pleural effusion or pneumothorax post was made of a right subclavian cent ral venous port catheter with distal tip in the midsuperior vena cava. 2. New opacities in the left mid and lower lung zone which could represent atel ectasis or pneumonia. 3. Cardiomegaly. 4. Aneurysmal dilation of the proximal descending thoracic aorta.
--- NOTE | ~2022-11-21 | XR_ITS ---
EXAMINATION: XR fl guide central line place DATE: 11/21/2022 08:26 INDICATION: Port placement TECHNIQUE: A single intraoperative fluoroscopic view of the chest was obtained. I was not present. Fl uoroscopy exposure time was 34 seconds. COMPARISON: Chest single view 11/21/2022 FINDINGS: There is a right subclavian port with tip overlying superior cavoatrial junction. IMPRESSION: 1. Port tip overlying superior cavoatrial junction. Reviewed, dictated and finalized at location A.
[2022-11-21 06:10] VITALS: BP 135/99; PULSE 66; RESP 16; TEMP 36; O2SAT 100
[2022-11-21] MEDS: KETOROLAC 15 MG/ML VIAL (*BKC) IV PUSH (06:51)
[2022-11-21] MEDS: LACTATED RINGERS 1,000 ML 30 ML IV CONT (06:51)
--- NOTE | 2022-11-21 07:15 | PM.IMHP ---
H&P: HPI History of Present Illness Date/Time: 11/21/22 07:15 Chief Complaint: Metastatic endometrial CA Narrative: Pt with hx of endometrial CA now with evidence of distant metastasis to right lung after recent CT guided lung biopsy. She is to undergo chemo tx and presents for placement of a portacatheter for the chemo tx. Review of Systems Review of Systems: The remainder of the review of systems to include constitutional, HEENT, cardiovascular, respiratory, GI, , integumentary, musculoskeletal, endocrine, immunologic, hematologic, psychiatric, and neurologic are all negative except for which is mentioned above in the HPI. [facility] Past Medical History Medical History Abnormal weight loss Adenocarcinoma Back pain Cardiomyopathy Chronic rhinitis Decreased appetite Descending thoracic aortic aneurysm Endometrial ca Essential (primary) hypertension Hyperparathyroidism Hypertrophic obstructive cardiomyopathy SVITLANA (iron deficiency anemia) MICHAEL on CPAP Pulmonary hypertension Rhinitis Subaortic stenosis Surgical History Surgical History History of cataract extraction 09/11/2010 History of salpingectomy Right side 09/12/2013 Family History Family History Mother Diabetes mellitus Family history of arthritis Father Patient's father is in good health Social History Social History Smoking status: Never smoker Second hand tobacco smoke exposure: No Alcohol intake: never Substance use: never Substance use type: does not use Living arrangements: with family Occupation/Education: occupation Gender identity (if verbalized by the patient): Female Sexual Orientation (if Verbalized by the Patient): Straight or Heterosexual Spiritual care concerns: No Agree to blood products: Yes Meds Home Medications and Allergies Home Medications Medication Instructions Recorded Confirmed Type fluticasone propionate 50 1 spray intranasal DAILY 09/02/21 11/12/22 History mcg/actuation nasal spray,suspension oxybutynin chloride 5 mg 5 mg PO DAILY #90 tabs 07/24/22 11/12/22 Rx tablet,extended release 24 hr calcitriol 0.25 mcg capsule 0.25 mcg PO DAILY #90 caps 07/28/22 11/12/22 Rx fexofenadine 180 mg tablet 180 mg PO DAILY 09/01/22 11/12/22 History ([facility]ley Allergy) diltiazem HCl 360 mg capsule,24 360 mg PO DAILY #100 caps 10/12/22 11/12/22 Rx hr,extended release allopurinol 300 mg tablet 300 mg PO DAILY #100 tabs 11/03/22 11/12/22 Rx metoprolol succinate 50 mg 150 mg PO DAILY 100 days #300 tabs 11/03/22 11/12/22 Rx tablet,extended release 24 hr omeprazole 40 mg capsule,delayed 40 mg PO DAILY #60 caps 11/03/22 11/12/22 Rx release ferrous sulfate 325 mg (65 mg 325 mg PO DAILY #30 tabs 11/04/22 11/12/22 Rx iron) tablet polyethylene glycol 3350 17 gram 17 g PO DAILY 11/12/22 11/12/22 History oral powder packet (Miralax) Allergies Allergy/AdvReac Type Severity Reaction Status Date / Time No Known Allergies Allergy Verified 11/21/22 06:09 Vital Signs Vital Signs - 24 hr 11/21/22 06:10 Temperature 36.0 C L Pulse Rate 66 Respiratory Rate 16 Blood Pressure 135/99 H Pulse Oximetry 100 Oxygen Delivery Room Air Exam Const: General: comfortable and no acute distress Eyes: General: appearance normal, both eyes and all related structures Sclera: sclerae normal Pupils: Equal, round and reactive pupils present Neck: Neck: supple and no JVD Resp: Effort & Inspection: normal respiratory effort Auscultation: clear to auscultation bilaterally Cardio: Rate: regular rate Rhythm: regular rhythm GI: GI Palp: Yes Soft to palpation, No Firmness to palpation present (GI), No Tenderness to palpation present (GI), No Guarding due to palpation present (GI) a
--- NOTE | 2022-11-21 07:18 | WPDANESEPPF ---
Anes - Initial Pre Proc Eval Procedure: Operation Date: 11/21/22 07:30 Proposed Procedures p Insertion Lele Cath - Tino Osorio MD Date/Time: 11/21/22 07:18 Surgeon: Tino Osorio MD Pre Op Diagnosis: endometrial carcinoma Patient Data Age: 72 Gender: F Height: 1.78 m Weight: 93 kg Last Vital Signs Temp 96.8 F L 11/21/22 06:10 Pulse 66 11/21/22 06:10 Resp 16 11/21/22 06:10 BP 135/99 H 11/21/22 06:10 Pulse Ox 100 11/21/22 06:10 O2 Del Method Room Air 11/21/22 06:10 Allergies Allergy/AdvReac Type Severity Reaction Status Date / Time No Known Allergies Allergy Verified 11/21/22 06:09 Home Medications Medication Instructions Recorded Confirmed Type fluticasone propionate 50 1 spray intranasal DAILY 09/02/21 11/12/22 History mcg/actuation nasal spray,suspension oxybutynin chloride 5 mg 5 mg PO DAILY #90 tabs 07/24/22 11/12/22 Rx tablet,extended release 24 hr calcitriol 0.25 mcg capsule 0.25 mcg PO DAILY #90 caps 07/28/22 11/12/22 Rx fexofenadine 180 mg tablet 180 mg PO DAILY 09/01/22 11/12/22 History ([facility] Allergy) diltiazem HCl 360 mg capsule,24 360 mg PO DAILY #100 caps 10/12/22 11/12/22 Rx hr,extended release allopurinol 300 mg tablet 300 mg PO DAILY #100 tabs 11/03/22 11/12/22 Rx metoprolol succinate 50 mg 150 mg PO DAILY 100 days #300 tabs 11/03/22 11/12/22 Rx tablet,extended release 24 hr omeprazole 40 mg capsule,delayed 40 mg PO DAILY #60 caps 11/03/22 11/12/22 Rx release ferrous sulfate 325 mg (65 mg 325 mg PO DAILY #30 tabs 11/04/22 11/12/22 Rx iron) tablet polyethylene glycol 3350 17 gram 17 g PO DAILY 11/12/22 11/12/22 History oral powder packet (Miralax) Patient hx anesthesia problems: none Family hx anesthesia problems: none Results Review: All pre-operative results and documents have been reviewed as part of the pre-operative evaluation. [facility] Past Medical History Medical History Abnormal weight loss Adenocarcinoma Back pain Cardiomyopathy Chronic rhinitis Decreased appetite Descending thoracic aortic aneurysm Endometrial ca Essential (primary) hypertension Hyperparathyroidism Hypertrophic obstructive cardiomyopathy SVITLANA (iron deficiency anemia) MICHAEL on CPAP Pulmonary hypertension Rhinitis Subaortic stenosis Surgical History Surgical History History of cataract extraction 09/11/2010 History of salpingectomy Right side 09/12/2013 Family History Family History Mother Diabetes mellitus Family history of arthritis Father Patient's father is in good health Social History Social History Smoking status: Never smoker Second hand tobacco smoke exposure: No Alcohol intake: never Substance use: never Substance use type: does not use Living arrangements: with family Occupation/Education: occupation Gender identity (if verbalized by the patient): Female Sexual Orientation (if Verbalized by the Patient): Straight or Heterosexual Spiritual care concerns: No Agree to blood products: Yes Anes - Eval Final PreProcedure Day of Procedure 11/21/22 07:18 Patient weight: obese Heart: regular rate and rhythm Lungs: clear to auscultation Airway: Mallampati scale class II Neurological: alert and oriented Last oral intake: >/= 8 hours ASA classification: III Emergent: no Anesthetic plan: proceed Anesthesia type and monitoring: general GIVS and LMA and standard monitoring Results Review: All pre-operative results and documents have been reviewed as part of the pre-operative evaluation. Informed Consent: The patient's anesthetic plan and its attendant risks and benefits were discussed with the patient/family/POA. Questions were solicited and answers provided to the satisfaction of the p
--- NOTE | 2022-11-21 07:19 | WPDHPUPDATE1 ---
History and Physical Update Update Date/Time: 11/21/22 07:19 History and Physical has been reviewed, including an updated exam of the patient. There are NO changes in the patient's condition. Risks, benefits, and alternatives have been discussed and questions answered. Patient agrees to proceed with procedure.
[2022-11-21] MEDS: ceFAZolin 2 GM/D5W 50 ML 2 GM/50 ML BAG IVPB (07:49)
[2022-11-21] MEDS: BUPivacaine HCL 0.5% PF 30 ML VIAL INFILTRATE (07:51)
[2022-11-21] MEDS: LIDO 1%/EPINEPHRINE 1:100,000 50 ML VIAL 30 ML INFILTRATE (07:52)
[2022-11-21] MEDS: HEPARIN SODIUM 5,000 UNITS/ML VIAL 1000 UNITS IRRIGATION ×2 (07:53)
[2022-11-21 08:37] VITALS: BP 104/78; PULSE 47; RESP 10; O2SAT 91
--- NOTE | 2022-11-21 08:48 | W.PM.PROC2 ---
Procedure Note - Detailed Date of Procedure 11/21/22 Pre-op Diagnosis Endometrial carcinoma with metastatic disease to right lung. Post-op Diagnosis Same Procedure Performed Placement of right subclavian vein single-lumen port a catheter with intraoperative fluoroscopy. Surgeon Tino Osorio MD [employer] DECKHAND Anesthesia General Indications Patient is a 72-year-old female who has endometrial cancer and metastatic disease to her right lung. She is to undergo chemotherapy treatments and presents now for placement of a crispin catheter for the chemotherapy. Findings None significant Description of Procedure After informed consent was obtained patient brought to the operating room she was placed supine position and general LMA anesthesia was administered. The bilateral upper anterior chest and neck was then prepped and draped in usual sterile fashion. A time-out was then performed correctly identifying the patient as well as procedure to be performed and she was given perioperative IV antibiotics. Approach placement of the catheter into the right subclavian vein due the fact she had metastatic disease to her right lung. 1% lidocaine mixed with 0.5% Marcaine was injected below the medial 3rd of the right clavicle. A transverse incision was then made with a scalpel in this area and dissection was carried down through the subcutaneous tissues to the anterior pectoralis fascia. Then with a combination electrocautery and blunt finger dissection I created a subcutaneous port pocket. Then I had the patient placed in the head-down Trendelenburg position and a long 18gauge needle was then used to cannulate the right subclavian vein on the 1st pass through the incision. There was prompt return of dark venous appearing blood. A guidewire was then passed through the needle into the right subclavian vein site down into the right atrium of the heart. The needle was then removed and then I intraoperative fluoroscopy and confirmed that the wire was in the proper position. I then proceeded to advance a dilator breakaway sheath over the guidewire. The dilator and guide were removed leaving the sheath in place. A 9.6 Maldivian single-lumen catheter was advanced through the sheath. The sheath was then torn away leaving the catheter in place. Intraoperative fluoroscopy was then used to visualize the catheter and I pulled back on the catheter until the tip was in the distal superior vena cava. I then proceeded to cut the catheter to the appropriate length at the skin level and attached to the Smart Port. The port was then secured in the subcutaneous port pocket with 3-0 Prolene sutures. The incision was irrigated sterile saline solution hemostasis was good. Close incision utilizing interrupted 3-0 Vicryl sutures in subcutaneous tissues. The skin edges were then approximated utilizing a running subcuticular 4-0 Monocryl suture. Incision was then cleaned and then skin glue was applied. I then percutaneously accessed the port and it aspirated blood easily. It was then flushed with heparinized saline solution. A final flush consisting of 5000units of heparin was then performed. The patient tolerated the procedure well no complications. All sponges, needles, and instrument counts were correct at the end procedure. EBL was _30__cc. The patient was awakened and taken to recovery in stable and satisfactory condition. Postprocedure chest x-ray was performed and radiology reading of the image is pending at time of this dictation. Implants Smart Port attached 9.6 Maldivian single-lumen catheter Estimated Blood Loss 30 Drains No Packing No Pathology None sent Complications No immediate complications Condition Stable Disposition PACU [facility] Billing Surgery - Charge Forward: Surgery Billing
[2022-11-21 09:00] VITALS: BP 128/75; PULSE 52; RESP 20
[2022-11-21 09:30] VITALS: BP 104/78; PULSE 50; RESP 20
[2022-11-21 10:00] VITALS: BP 132/77; PULSE 50; RESP 20
== END 2022-11-21 10:05 | disposition home or self-care (01) ==
PROVIDERS: PCP Family Medicine; Visit Provider Surgery
PROC: (CPT 36561; principal; 2022-11-21 07:30)
DX: C54.1 Malignant neoplasm of endometrium (principal); C78.01 Secondary malignant neoplasm of right lung; I10 Essential (primary) hypertension; I42.1 Obstructive hypertrophic cardiomyopathy; I71.23 Aneurysm of the descending thoracic aorta, without rupture; I27.20 Pulmonary hypertension, unspecified; E21.3 Hyperparathyroidism, unspecified; D50.9 Iron deficiency anemia, unspecified; E66.9 Obesity, unspecified; Z68.29 Body mass index [BMI] 29.0-29.9, adult
CPT/HCPCS: 36561; 36415; 77001; 85610; 85730; C1788; J0690; J1644; J1885; J2250; J2405; J2704; J3010; J7030; J7120

== ENCOUNTER 2023-01-15 11:02 | Emergency (ER) | payer MEDICARE, SELFPAY ==
[2023-01-15 11:24] VITALS: BP 127/97; PULSE 70; RESP 18; TEMP 36.9; O2SAT 100
[2023-01-15 12:06] LABS: Basophils Percent Auto 0.9 % (0.2-1.2); Hematocrit 31.1 % (37.0-47.0); Hemoglobin 9.5 g/dL (12.0-15.0); Immature Granulocyte Absolute 0.03 K/mm3 (0.00-0.031); Immature Granulocyte Percent A 1.3 % (0-0.5); Lymphocytes Absolute Auto 0.78 K/mm3 (0.9-3.2); Lymphocytes Percent Auto 34.1 % (18.3-44.2); Mean Corpuscular HGB Conc 30.5 g/dl (32-36); Mean Corpuscular Hemoglobin 27.4 pg (26-34); Mean Corpuscular Volume 89.6 fl (80-100); Mean Platelet Volume 10.9 fl (7.4-10.4); Monocytes Percent Auto 0.9 % (2.6-8.5); Neutrophils Absolute Auto 1.4 K/mm3 (1.3-6.7); Neutrophils Percent Auto 62.8 % (45.5-73.1); Platelet Count Result 183 k/mm3 (150-375); Red Blood Count 3.47 M/mm3 (4.2-5.4); Red Cell Distribution Width 16.2 % (11.5-14.5); White Blood Count 2.3 K/mm3 (4.5-10.0)
[2023-01-15 12:09] LABS: Appearance Urine Clear (Clear); Bacteria Urine None Seen /hpf; Bilirubin Urine Negative (Negative); Blood Urine 1+ (Negative); Color Urine Yellow (Yellow); Glucose Urine UA Negative (Negative); Ketones Urine Negative (Negative); Leukocyte Esterase Ur 2+ LEU/UL (Negative); Nitrate Urine Negative (Negative); Non Pathogenic Casts 0-2; Protein Urine Trace mg/dL (Negative); RBC Urine 0-2 /hpf (0-2); Specific Grav Ur 1.023 (1.001-1.035); Squamous Epithelial Cell Urine Few /hpf (Few); Urobilinogen Urine 0.2 mg/dL (<2.0); WBC Urine 21-50 /hpf; pH Urine 5.5 (5.0-9.0)
[2023-01-15 12:11] LABS: Add Urine Microscopic? YES
[2023-01-15 12:19] LABS: Alanine Aminotransferase 23 U/L (6-35); Albumin Level 3.6 g/dL (3.5-5.1); Alkaline Phosphatase 84 U/L (38-126); Anion Gap 8 mmol/L (8-16); Aspartate Amino Transferase 23 U/L (14-36); Bilirubin,Total 0.4 mg/dL (0.2-1.3); Blood Urea Nitrogen 25 mg/dL (7-17); Carbon Dioxide 25 mmol/L (22-30); Chloride 110 mmol/L (98-107); Estimated CRCL calculation 52 ml/min; Estimated Glomerular Filt Rate 60; Glucose 115 mg/dL (65-110); Potassium 3.7 mmol/L (3.4-5.0); Sodium 143 mmol/L (137-145)
== END 2023-01-15 13:03 | disposition left against medical advice (07) ==
PROVIDERS: Emergency Provider Student in an Organized Health Care Education/Training Program; PCP Family Medicine
DX: R31.9 Hematuria, unspecified (principal)
CPT/HCPCS: 36415; 80053; 81001; 85025; 87086; 87088; 99199

== ENCOUNTER 2023-03-02 07:27 | Outpatient (CLI) | payer MEDICARE, SELFPAY ==
--- NOTE | ~2023-03-02 | CT_ITS ---
Clinical Indication: Endometrial carcinoma CT Scan of the Chest, Abdomen, and Pelvis with Contrast: Technique: Contiguous sections were acquired throughout the chest, abdomen, and pelvis after intraven ous administration of 100 cc of Omnipaque 350. Dose reduction technique was used on this scan by uti lizing automated exposure control and iterative reconstruction technique. The dose-length product (DL P) was 969.33 mGy-cm. COMPARISON: PET/CT dated 08/19/2022, chest CT dated 323 Findings: Right-sided Mediport present. There is no evidence of any significant mediastinal, hilar or axillary lymphadenopathy. There is diff use aneurysmal dilatation of the descending thoracic aorta, which measures up to 6.4 cm in diameter j ust distal to the aortic arch. There is mural versus intramural thrombus in the descending thoracic a sanju.. Ascending aorta is unremarkable. Small pericardial effusion present. No pleural effusions. Previous noted 2 cm right middle lobe pulmonary nodule is largely resolved, with minimal atelectasis or scarring in its previous location. There is a 1.2 cm nodular consolidation in the right lower lobe (axial image 65), new from on prior exam. Hepatic cyst noted. The spleen, pancreas, gallbladder, adrenals and kidneys are within normal limits. There are atherosclerotic calcifications of the aorta. No lymphadenopathy. No bowel obstruction or bowel wall thickening. There is no evidence to suggest acute appendicitis. Urinary bladder is unremarkable. Patient is status post hysterectomy. No pelvic mass seen. No ascites . Impression: Previously noted 2 cm right middle lobe pulmonary nodule is largely resolved. This could reflect inte rval resolution of pneumonia or neoplasm. Correlate with clinical history/treatment history. 1.2 cm nodular irregular consolidation right lower lobe, new from prior exam. Diagnostic consideratio ns include pneumonia versus neoplastic disease. 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 Small pericardial effusion. Reviewed, dictated and finalized at location M. Impression: Previously noted 2 cm right middle lobe pulmonary nodule is largely resolved. T his could reflect interval resolution of pneumonia or neoplasm. Correlate with clinical history/treatment history. 1.2 cm nodular irregular consolidation right lower lobe, new from prior exam. D iagnostic considerations include pneumonia versus neoplastic disease. 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 Small pericardial effusion.
[2023-03-02 07:49] LABS: Estimated Glomerular Filt Rate 36
== END 2023-03-02 07:28 | disposition home or self-care (01) ==
PROVIDERS: PCP Family Medicine; Visit Provider Internal Medicine Hematology & Oncology
DX: C54.1 Malignant neoplasm of endometrium (principal); R91.1 Solitary pulmonary nodule; I71.23 Aneurysm of the descending thoracic aorta, without rupture; I31.39 Other pericardial effusion (noninflammatory)
CPT/HCPCS: 71260; 74177; Q9967

== ENCOUNTER → 2023-05-04 15:14 | Outpatient (CLI) | payer MEDICARE, SELFPAY ==
--- NOTE | ~2023-05-04 | XR_ITS ---
XR chest 2V 05/04/2023 15:53 Indication: Cough Procedure: 2 view chest Comparison: Comparison to multiple prior studies sequentially, with oldest reviewed study dated 09/08. Findings: Portacatheter tip in the SVC. Enlarged thoracic aorta, consistent with known aneurysm. Wide shadia mediastinum, consistent with mediastinal lymphadenopathy. Bibasilar airspace disease. Possible sm all left effusion. No pneumothorax. Impression: 1: Bibasilar airspace disease may represent pneumonia and/or atelectasis. 2: Enlarged thoracic aorta, consistent with known aneurysm. Reviewed, dictated and finalized at location A. O LEAD Impression: 1: Bibasilar airspace disease may represent pneumonia and/or atelectasis. 2: Enlarged thoracic aorta, consistent with known aneurysm.
== END ==
PROVIDERS: PCP Family Medicine; Visit Provider Family Medicine
DX: R91.8 Other nonspecific abnormal finding of lung field (principal); I77.810 Thoracic aortic ectasia; R05.9 Cough, unspecified
CPT/HCPCS: 71046

== ENCOUNTER 2023-06-04 09:33 | Outpatient (CLI) | payer MEDICARE, SELFPAY ==
--- NOTE | ~2023-06-04 | CT_ITS ---
EXAMINATION: CT diagnostic chest w con DATE: 06/04/2023 10:20 INDICATION: Endometrial carcinoma TECHNIQUE: Transaxial computed tomographic images of the chest were obtained after the administration of 75 cc of Omnipaque 350 intravenous contrast. The dose-length product (DLP) was 341.03 mGy-cm. Ite rative reconstruction was used. COMPARISON: 03/02/2023 FINDINGS: There is mild atelectasis in the right lower lobe in the area of the previously described n odule. In addition, there is dependent atelectasis in both lungs. No suspicious lung nodule is identi fied. No pleural effusion or pneumothorax. Cardiomegaly is noted. There is a chronic small pericardia l effusion. Again seen is a fusiform aneurysm of the descending thoracic aorta. Maximum diameter is 6 .4 cm just beyond the aortic arch. There is a questionable penetrating ulcer in the medial aspect of the mid descending aorta. There is mild thoracic spondylosis. IMPRESSION: 1. Interval resolution of the previously described right lower lobe nodule, likely resolved infection /inflammation. 2. Fusiform aneurysm of the descending thoracic aorta, measuring up to 6.4 cm, with possible penetrat ing ulcer in the mid descending aorta. Reviewed, dictated and finalized at location F. GER TRANSMISSION IMPRESSION: 1. Interval resolution of the previously described right lower lobe nodule, lik lexi resolved infection/inflammation. 2. Fusiform aneurysm of the descending thoracic aorta, measuring up to 6.4 cm, with possible penetrating ulcer in the mid descending aorta.
[2023-06-04 10:09] LABS: Estimated Glomerular Filt Rate 36
== END 2023-06-04 09:34 | disposition home or self-care (01) ==
PROVIDERS: PCP Family Medicine; Visit Provider Internal Medicine Hematology & Oncology
DX: C54.1 Malignant neoplasm of endometrium (principal); I71.23 Aneurysm of the descending thoracic aorta, without rupture
CPT/HCPCS: 71260; Q9967

== ENCOUNTER 2023-07-07 11:00 | Outpatient (RCR) | payer MEDICARE, SELFPAY ==
[2022-09-22 11:10] VITALS: BMI 30.4
[2022-09-22 11:14] VITALS: BP 142/90; PULSE 56; RESP 20; TEMP 36.4; O2SAT 100
--- NOTE | 2022-09-22 15:03 | PDRADONCCN ---
[facility] - Date/Time Seen 09/22/22 15:03 - History of Present Illness NEW PATENT RADIATION ONCOLOGY CONSULTATION DOS: 09/22/22 Diagnosis: Oligorecurrent endometrial cancer. New Patient History of Present Illness/Review and Summary of Existing Medical Records: She is a new patient who is seen today in [facility] at the request of Dr. Lion to be evaluated and discuss radiation treatment options for her recent diagnosis of recurrent endometrial cancer. Information pertinent to this evaluation is as follows: She has a remote history of uterine cancer s/p PAM in 2013 at [facility]. She did not receive any adjuvant RT or chemotherapy. She was noted to have a right lung nodule on CT abd/pelvis obtained to work-up abdominal pain. This led to pulmonary referral and further work-up as below. 07/22/[address] IMPRESSION: 1. 2.0 cm nodule in right lung middle lobe abutting the heart, consistent with primary bronchogenic carcinoma. 2. 6 mm nodule in right lung lower lobe, probably benign. 3. 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 Asymmetric peripheral hyperdensity in the aorta is suspicious for a subacute intramural hematoma. Chest CTA is recommended. I called this result to Bola Johnston. 4. Small left pleural effusion, new from 07/06/22. 5. Small pericardial effusion, new from 07/06/22. 08/19/22 PET/CT IMPRESSION: 1. 2 cm nodule of the right middle lobe with abnormal FDG uptake, consistent with primary bronchogenic carcinoma. 2. 6 mm nodule in the medial right lower lobe without associated FDG uptake, possibly due to small size. Continued follow-up is recommended. 3. Stable fusiform aneurysm of the proximal descending aorta. 09/08/22 Percutaneous biopsy of RML lung lesion showed adenocarcinoma, favor endometrial origin. She saw Dr. Lion. She was referred to [facility] for lung SBRT. He plans to deliver systemic therapy after completion of lung SBRT. She presents to the radiation oncology clinic today for formal consultation. She feels well. No systemic, pelvic, or respiratory symptoms. Review of Systems: See HPI. Past Medical/Surgical History No prior history of radiotherapy No history of active collagen vascular disease including scleroderma No implanted pacemaker or defibrillator Social History She is retired. She lives in [place], [place] Family History Reviewed Allergies No IV contrast or iodine allergy Medications Reviewed Physical Exam Vital signs see RN ECO General Appearance: The patient is a well-developed, well-nourished female sitting, in no acute distress. Eyes: EOMI. Sclerae are anicteric. Respiratory: Breathing comfortably at rest without wheeze Neuro: Awake, alert. No focal deficits, Radiology Review: I personally reviewed the available images from the radiologic examinations noted above in the HPI, with the findings as noted above. Laboratory Review: reviewed in EMR Histopathology: see HPI Diagnosis: 72 y/o F with prior history of uterine cancer s/p PAM in 2013 without any further adjuvant therapy, who now presents with a biopsy-proven RML central lung oligometastasis ~2 cm in size that is abutting the heart. She has an indeterminate small 6 mm RLL lung nodule that was not PET avid (but possibly below threshold for PET). She is asymptomatic with excellent KPS. She will receive systemic therapy with Dr. Lion following completion of lung SBRT. Plan: 1. We discussed the clinical scenario and management options for oligometastatic disease. In this particular situation, there is evidence of measurable disease only in a single site in the lung. She has a low systemic disease burden overall in addition. As such, proceeding with stereotactic radiation to the single site of disease recurrence in the lung is reasonable. 2. We discussed the logistics involved with a course of stereotactic radiation to the right middle lobe of lung. We discussed that although LC would be ex
[2022-10-06 13:12] VITALS: BP 126/82; PULSE 60; RESP 20; TEMP 37; O2SAT 100
--- NOTE | 2022-10-06 14:36 | PDRADONCFUV ---
Follow Up Note - Date/Time 10/06/22 14:36 - Interval History RADIATION ONCOLOGY FOLLOW UP DOS: 10/06/22 DIAGNOSIS: 72 y/o F with prior history of uterine cancer s/p PAM in 2013 without any further adjuvant therapy, who now presents with a biopsy-proven RML central lung oligometastasis ~2 cm in size that is abutting the heart. She has an indeterminate small 6 mm RLL lung nodule that was not PET avid (but possibly below threshold for PET). She is asymptomatic with excellent KPS. I plan to treat her with hypofractionated RT 60Gy in 8 Fx (similar to SBRT, but >5 Fx given ultra-central location). She will receive systemic therapy with Dr. Lion following completion of lung SBRT. HISTORY & NARRATIVE: Her history is above. She was previously seen in consultation and returns today for her CT simulation. Since consultation, she reports feeling generally well. There have been no significant changes to the health history in the interim. PHYSICAL EXAMINATION: Vital signs: see RN note ECO General Appearance: The patient is a well-developed, well-nourished female, sitting, in no acute distress. HEENT: normocephalic, atraumatic. Lungs: Breathing comfortably at rest without wheeze Abdomen: Non-distended Skin: warm, dry, no rashes or lesions Neurologic: Patient awake and alert, responds to questions appropriately ASSESSMENT & PLAN: She returns today for CT simulation. I reviewed with her the steps involved in the CT simulation today. We also discussed the logistics involved with radiation treatment planning. We reviewed the anticipated acute and late effects of treatment. Written informed consent was signed in clinic today. She knows to contact me with questions or concerns prior to the return visit. Pain score 0/10, so no change to pain mgmt. Time spent: 15 min Darnell Li MD H&P - Exam - Vital Signs Vital Signs - 24 hr 10/06/22 13:12 Temperature 37.0 C Pulse Rate 60 Respiratory Rate 20 Blood Pressure 126/82 Pulse Oximetry 100
--- NOTE | 2022-10-06 14:39 | WPDRADIATPRO ---
Radiation Procedure Note - Date/Time Date/Time: 10/06/22 14:39 - Summary Summary: Procedure Date: 10/06/[address] SIMULATION PROCEDURE / 64032 PURPOSE: The patient is undergoing a virtual CT simulation for external beam radiation treatment planning. Today?s 4D-CT dataset will be utilized for intensity modulated treatment planning (IMRT). TREATMENT SITE(S): Lung Right Middle Lobe NUMBER OF AREAS OR SANTACRUZ: One treatment area was simulated today. NUMBER OF PORTS: IMRT using multiple static gantry angles, arcs, or helical tomotherapy will be needed to cover the treatment volume and adequately protect nearby critical normal tissues. The number of ports will be determined during the treatment planning process. EQUIPMENT USED: Simulation was performed on the department?s dedicated CT simulator. IMMOBILIZATION: An alpha cradle device was fabricated to immobilize the patient?s body in treatment position. CONTRAST MEDIA: The use of contrast was not required for this simulation. EXTERNAL MARKERS: No external markers were used. TATTOOS: Positioning tattoos were applied to the patient?s skin BLOCKING: An intensity map generated by multiple MLC-shaped beamlets of complex design will be constructed as part of an IMRT treatment plan. COMPENSATING FILTER / WEDGE: None ISODOSE PLAN: An IMRT treatment plan will be performed to precisely deliver a specified dose to the treatment volume with narrow margins and to protect adjacent critical normal tissues from receiving excessive radiation exposure. SCHEDULING Prior to delivering the first radiation fraction, a verification simulation will be performed on the linear accelerator to verify the isocenter location. DAILY IMAGE GUIDANCE: Utilizing the integrated CT scanner on the treatment machine, CT images through the treatment volume will be acquired daily prior to treatment to ensure precise patient positioning, thus allowing treatment of the tumor with narrow margins. MEDICAL NECESSITY FOR IMRT TREATMENT PLANNING: Dose escalation is planned to deliver radiation doses in excess of those commonly utilized with conventional treatments. The target volume is in close proximity to critical normal structures (lung, spinal cord, heart, esophagus) and must be treated with narrow margins to adequately protect immediately adjacent structures in order to reduce the probability of radiation toxicity. IMRT is the only treatment modality that can achieve this, as opposed to conventional 3D-treatment planning. MEDICAL NECESSITY FOR IGRT TREATMENT PLANNING: The target volume has inherent setup variation as a result of respiratory motion. IGRT, in conjunction with respiratory gating, is the only treatment modality that can correct for daily variances in target volume location, further improving the therapeutic ratio over IMRT alone. RESPIRATORY MOTION MANAGEMENT (78109) She was simulated today using respiratory correlated 4DCT in which respiratory motion was tracked and this was used to reconstruct images that represent the location of the tumor and critical structures throughout the breathing cycle. These images were imported into our treatment planning system and a maximum intensity projection was generated. These images were imported into our treatment planning system and based on these we developed target and avoidance volumes that represent the patient during normal respiration. A treatment strategy was developed to ensure good target coverage and normal tissue sparing in regions affected by respiratory motion. Darnell Li MD
--- NOTE | 2022-10-06 14:45 | WPDONCRADTXP ---
Radiation Treatment Plan - Date/Time Date/Time: 10/06/22 14:45 - Summary Summary: CLINICAL TREATMENT PLAN PATIENT NAME: Rosalva Marina PROCEDURE DATE: 10/06/22 DIAGNOSIS: 72 y/o F with prior history of uterine cancer s/p PAM in 2013 without any further adjuvant therapy, who now presents with a biopsy-proven RML central lung oligometastasis ~2 cm in size that is abutting the heart. She has an indeterminate small 6 mm RLL lung nodule that was not PET avid (but possibly below threshold for PET). She is asymptomatic with excellent KPS. I plan to treat her with hypofractionated RT 60Gy in 8 Fx (similar to SBRT, but >5 Fx given ultra-central location). She will receive systemic therapy with Dr. Lion following completion of lung SBRT. TREATMENT INTENT: Definitive SPECIAL TEST(S) INTERPRETED FOR TUMOR DELINEATION: PET/CT TREATMENT SITE(S): RML - lung NUMBER OF AREAS OR SANTACRUZ: 1 treatment area NUMBER OF TREATMENT PORTS: IMRT using multiple static gantry angles, arcs, or helical tomotherapy will be needed to cover the treatment volume and adequately protect nearby critical normal tissues. The number of ports will be determined during the treatment planning process. IMMOBILIZATION: Alphacradle TREATMENT DEVICES: Custom blocks of complex design TREATMENT MODALITY: External photon beam PLANNED DOSE: 6000 cGy in 8 fractions FRACTIONATION: Daily TECHNIQUE CONTEMPLATED: IMRT MEDICAL NECESSITY FOR IMRT TREATMENT PLANNING The target volume is in close proximity to critical normal structures (heart, esophagus, uninvolved lung) and must be treated with narrow margins to adequately protect immediately adjacent structures in order to reduce the probability of radiation toxicity. The dose required to deliver to the target volume may exceed the tolerance of these adjacent normal structures, which are so close that IMRT is the only treatment modality that can achieve this, as opposed to conventional 3D-treatment planning. MEDICAL NECESSITY FOR IGRT TREATMENT PLANNING The target volume has inherent setup variation as a result of respiratory motion. IGRT is the only treatment modality that can correct for daily variances in target volume location, further improving the therapeutic ratio over IMRT alone. Darnell Li MD
--- NOTE | 2022-10-20 08:53 | WPDRADONCOTV ---
On Treatment Visit - Date/Time of Treatment Date/Time: 10/20/22 08:53 History: RADIATION ONCOLOGY ON-TREATMENT VISIT DATE: 10/20/22 DIAGNOSIS: 72 y/o F with prior history of uterine cancer s/p PAM in 2013 without any further adjuvant therapy, who now presents with a biopsy-proven RML central lung oligometastasis ~2 cm in size that is abutting the heart. She has an indeterminate small 6 mm RLL lung nodule that was not PET avid (but possibly below threshold for PET). She is asymptomatic with excellent KPS. I plan to treat her with hypofractionated RT 70Gy in 10 Fx using [facility] technique + constraints (similar to SBRT, but >5 Fx given ultra-central location). She will receive systemic therapy with Dr. Lion following completion of lung SBRT. SITE: RML Lung DOSE: 700 cGy of planned 7000 cGy HISTORY: She reports feeling generally well. No complaints. EXAM: see RN note for vitals. Well-appearing, NAD. Breathing comfortably on RA. ASSESSMENT/PLAN: Tolerating radiotherapy well. Imaging checked. Continue radiation therapy as planned. Pain score 0/10, so no change to pain mgmt. Darnell Li MD
[2022-10-20 10:50] VITALS: BP 126/90; PULSE 56; RESP 20; TEMP 36.4; O2SAT 100
--- NOTE | 2022-10-27 08:47 | WPDRADONCOTV ---
On Treatment Visit - Date/Time of Treatment Date/Time: 10/27/22 08:47 History: RADIATION ONCOLOGY ON-TREATMENT VISIT DATE: 10/27/22 DIAGNOSIS: 72 y/o F with prior history of uterine cancer s/p PAM in 2013 without any further adjuvant therapy, who now presents with a biopsy-proven RML central lung oligometastasis ~2 cm in size that is abutting the heart. She has an indeterminate small 6 mm RLL lung nodule that was not PET avid (but possibly below threshold for PET). She is asymptomatic with excellent KPS. I plan to treat her with hypofractionated RT 70Gy in 10 Fx using [facility] technique + constraints (similar to SBRT, but >5 Fx given ultra-central location). She will receive systemic therapy with Dr. Lion following completion of lung SBRT. SITE: RML Lung DOSE: 4200 cGy of planned 7000 cGy HISTORY: She reports feeling generally well. No complaints. EXAM: see RN note for vitals. Well-appearing, NAD. Breathing comfortably on RA. ASSESSMENT/PLAN: Tolerating radiotherapy well. Imaging checked. Continue radiation therapy as planned. Completes RT this week. Plan for 6 wk follow-up. Pain score 0/10, so no change to pain mgmt. Darnell Li MD
--- NOTE | 2022-10-27 08:48 | WPDRADIATPRO ---
Radiation Procedure Note - Date/Time Date/Time: DOS 10/20/22 - Summary Summary: Procedure Date: 10/20/22 RADIATION ONCOLOGY VERIFICATION SIMULATION PURPOSE: The patient initially underwent virtual CT simulation. A simple simulation was performed on the linear accelerator utilizing the integrated kV CT for isocenter verification prior to treatment delivery of the first fraction. EQUIPMENT USED: Simulation was performed on the linear accelerator. PROCEDURE DETAILS: This simulation was performed prior to the first radiation fraction to the right middle lobe lung. The patient was placed on the treatment couch with her body immobilized using a custom fabricated alpha-cradle in treatment position and aligned to the 3-point setup tattoos. An kV CT was acquired through the treatment area. The kV CT images were fused and aligned to the treatment planning CT image set. I reviewed the CT alignment images and made any necessary adjustments. Couch shifts were calculated in order to bring the patient into precise alignment prior to treatment delivery. ASSESSMENT: The isocenter alignment process was successful. ORDERS: Proceed with treatment as planned. Darnell Li MD
[2022-10-27 10:39] VITALS: BP 134/80; PULSE 62; RESP 20; TEMP 36.6; O2SAT 100
--- NOTE | 2022-10-27 10:46 | P.RADTS_ITS ---
Radiation Treatment Summary - Date/Time Date/Time: 10/27/22 10:46 - Narrative Narrative: RADIATION ONCOLOGY COMPLETION OF THERAPY SUMMARY Diagnosis: 72 y/o F with prior history of uterine cancer s/p PAM in 2013 without any further adjuvant therapy, who now presents with a biopsy-proven RML central lung oligometastasis ~2 cm in size that is abutting the heart. She has an indeterminate small 6 mm RLL lung nodule that was not PET avid (but possibly below threshold for PET). She is asymptomatic with excellent KPS. I plan to treat her with hypofractionated RT 70Gy in 10 Fx using [facility] technique + constraints (similar to SBRT, but >5 Fx given ultra-central location). She will receive systemic therapy with Dr. Lion following completion of lung SBRT. Identifying Data: She recently completed a course of radiation therapy to the RIGHT MIDDLE LOBE LUNG Treatment Delivered: She received a total of 7000 Gy delivered in 700 cGy daily fractions utilizing photon IMRT. All treatment was delivered with the patient supine and in an alphacradle. All treatment was delivered between 10/20/22 and 10/31/22. Tolerance: She tolerated therapy relatively well. Disposition: The patient will follow-up with me in 6 weeks. She is also instructed to continue follow-up with Dr. Lion in medical oncology. Darnell Li MD
[2022-12-16 08:34] VITALS: BP 130/90; PULSE 68; TEMP 36.3; O2SAT 100
--- NOTE | 2022-12-16 09:14 | PDRADONCFUV ---
Follow Up Note - Date/Time 12/16/22 09:14 - Interval History RADIATION ONCOLOGY FOLLOW UP DOS: 12/16/22 DIAGNOSIS: 72 y/o F with prior history of uterine cancer s/p PAM in 2013 without any further adjuvant therapy, who now presents with a biopsy-proven RML central lung oligometastasis ~2 cm in size that is abutting the heart. She has an indeterminate small 6 mm RLL lung nodule that was not PET avid (but possibly below threshold for PET). She was asymptomatic with excellent KPS. I treated her with hypofractionated RT 70Gy in 10 Fx completed 10/30/22. She will receive systemic therapy with Dr. Lion. HISTORY & NARRATIVE: She completed a course of radiation on 10/30/22 and returns today for her first follow-up since completion of radiation. Since completing radiation, she reports feeling generally well. Overall, she tolerated treatment well. No shortness of air, cough, dyspnea. No hemoptysis, no chestwall pain. She feels at baseline. She had a port placed and received C1 of chemo/immunotherapy with Dr. Lion. PHYSICAL EXAMINATION: Vital signs: see RN ECO General Appearance: The patient is a well-developed, well-nourished female, sitting, in no acute distress. HEENT: normocephalic, atraumatic. Mucus membranes moist Lungs: Breathing comfortably at rest without wheeze. Good air movement b/l Skin: warm, dry, no rashes or lesions Neurologic: Patient awake and alert, responds to questions appropriately RADIOLOGY REVIEW: No new imaging results ASSESSMENT & PLAN: She is now 6 weeks status post completion of stereotactic radiation and is doing well clinically. She remains asymptomatc. She is tolerating chemo-immunotherapy well. I have asked her to return to see me back in 3 months. Given that she is receiving systemic therapy, I will defer restaging imaging to Dr. Lion. She knows to contact me with questions or concerns prior to the return visit. Pain 0/10, so no change to pain mgmt required. Darnell Li MD H&P - Exam - Vital Signs Vital Signs - 24 hr 12/16/22 08:34 Temperature 36.3 C L Pulse Rate 68 Blood Pressure 130/90 Pulse Oximetry 100 - Lab Results Laboratory Last Values WBC Cancelled 12/08/22 13:40 RBC Cancelled 12/08/22 13:40 Hgb Cancelled 12/08/22 13:40 Hct Cancelled 12/08/22 13:40 MCV Cancelled 12/08/22 13:40 MCH Cancelled 12/08/22 13:40 MCHC Cancelled 12/08/22 13:40 RDW Cancelled 12/08/22 13:40 Plt Count Cancelled 12/08/22 13:40 MPV Cancelled 12/08/22 13:40 Immature Gran % (Auto) Cancelled 12/08/22 13:40 Neut % (Auto) Cancelled 12/08/22 13:40 Lymph % (Auto) Cancelled 12/08/22 13:40 Foster % (Auto) Cancelled 12/08/22 13:40 Eos % (Auto) Cancelled 12/08/22 13:40 Baso % (Auto) Cancelled 12/08/22 13:40 Lymph # (Auto) Cancelled 12/08/22 13:40 Foster # (Auto) Cancelled 12/08/22 13:40 Eos # (Auto) Cancelled 12/08/22 13:40 Baso # (Auto) Cancelled 12/08/22 13:40 Abs Immat Gran (auto) Cancelled 12/08/22 13:40 Absolute Neuts (auto) Cancelled 12/08/22 13:40 Absolute Nucleated RBC Cancelled 12/08/22 13:40 Total Counted Cancelled 12/08/22 13:40 Neutrophils % (Manual) Cancelled 12/08/22 13:40 Band Neutrophils % Cancelled 12/08/22 13:40 Lymphocytes % (Manual) Cancelled 12/08/22 13:40 Monocytes % (Manual) Cancelled 12/08/22 13:40 Eosinophils % (Manual) Cancelled 12/08/22 13:40 Basophils % (Manual) Cancelled 12/08/22 13:40 Metamyelocytes % Cancelled 12/08/22 13:40 Myelocytes % Cancelled 12/08/22 13:40 Promyelocytes % (Man) Cancelled 12/08/22 13:40 Nucleated RBC % Cancelled 12/08/22 13:40 Abs Neuts (Manual) Cancelled 12/08/22 13:40 Abs Lymphs (Manual) Cancelled 12/08/22 13:40 Abs Monocytes (Manual) Cancelled 12/08/22
[2023-03-24 08:55] VITALS: BP 126/90; PULSE 88; TEMP 36.6; O2SAT 100
--- NOTE | 2023-03-24 09:00 | PDRADONCFUV ---
Follow Up Note - Date/Time 03/24/23 09:00 - Interval History RADIATION ONCOLOGY FOLLOW UP DOS: 03/24/23 DIAGNOSIS: 72 y/o F with prior history of uterine cancer s/p PAM in 2013 without any further adjuvant therapy, who now presents with a biopsy-proven RML central lung oligometastasis ~2 cm in size that is abutting the heart. She has an indeterminate small 6 mm RLL lung nodule that was not PET avid (but possibly below threshold for PET). She was asymptomatic with excellent KPS. I treated her with hypofractionated RT 70Gy in 10 Fx completed 10/30/22. She completed carboplatin/alimta/taxol x4 cycles in 01/2023 (Dr. Lion). She will now receive maintenance Keytruda. HISTORY & NARRATIVE: She completed a course of radiation on 10/30/22 and returns today for follow-up. Since completing radiation, she reports feeling generally well. Overall, she is doing well. No shortness of air, cough, dyspnea. No hemoptysis, no chestwall pain. She has some fatigue, but otherwise feels at baseline. Systemic plan is noted above. She last saw Dr. Lion on 03/09/23. Plan for 6 wk follow-up and initiation of maintenance keytruda. She will receive 1st infusion today. Plans for repeat CT in 3 months. PHYSICAL EXAMINATION: Vital signs: see RN ECO General Appearance: The patient is a well-developed, well-nourished female, sitting, in no acute distress. HEENT: normocephalic, atraumatic. Mucus membranes moist Lungs: Breathing comfortably at rest without wheeze. Good air movement b/l Skin: warm, dry, no rashes or lesions Neurologic: Patient awake and alert, responds to questions appropriately RADIOLOGY REVIEW: CT CAP 03/02/23 Impression: Previously noted 2 cm right middle lobe pulmonary nodule is largely resolved. This could reflect interval resolution of pneumonia or neoplasm. Correlate with clinical history/treatment history. 1.2 cm nodular irregular consolidation right lower lobe, new from prior exam. Diagnostic considerations include pneumonia versus neoplastic disease. 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 Small pericardial effusion I reviewed this personally, compared to her prior and her radiation treatment plan. ASSESSMENT & PLAN: She is now 6 weeks status post completion of stereotactic radiation and is doing well clinically. She will start maintenance Keytruda. She remains asymptomatic. She has had a good response to RT of her RML lung metastasis. She does have a new consolidation in RLL which does warrant close follow-up. I have asked her to return to see me back in 3 months, after her next CT imaging (ordered by Dr. Lion). Given that she is receiving systemic therapy, I will defer restaging imaging to Dr. Lion. She knows to contact me with questions or concerns prior to the return visit. Pain 0/10, so no change to pain mgmt required. Darnell Li MD Time spent: 25 minutes H&P - Exam - Vital Signs Vital Signs - 24 hr 03/24/23 08:55 Temperature 36.6 C Pulse Rate 88 Blood Pressure 126/90 Pulse Oximetry 100 - Lab Results Laboratory Last Values WBC Cancelled 12/08/22 13:40 RBC Cancelled 12/08/22 13:40 Hgb Cancelled 12/08/22 13:40 Hct Cancelled 12/08/22 13:40 MCV Cancelled 12/08/22 13:40 MCH Cancelled 12/08/22 13:40 MCHC Cancelled 12/08/22 13:40 RDW Cancelled 12/08/22 13:40 Plt Count Cancelled 12/08/22 13:40 MPV Cancelled 12/08/22 13:40 Immature Gran % (Auto) Cancelled 12/08/22 13:40 Neut % (Auto) Cancelled 12/08/22 13:40 Lymph % (Auto) Cancelled 12/08/22 13:40 [place] % (Auto) Cancelled 12/08/22 13:40 Eos % (Auto) Cancelled 12/08/22 13:40 Baso % (Auto) Cancelled 12/08/22 13:40 Lymph # (Auto) Cancelled 12/08/22 13:40 [place] # (Auto) Cancelled 12/08/22 13:40 Eos #
[2023-07-07 10:59] VITALS: BP 134/92; PULSE 60; TEMP 36.9; O2SAT 100
--- NOTE | 2023-07-07 11:28 | PDRADONCFUV ---
Follow Up Note - Date/Time 07/07/23 11:28 - Interval History RADIATION ONCOLOGY FOLLOW UP DOS: 07/07/23 DIAGNOSIS: 72 y/o F with prior history of uterine cancer s/p PAM in 2013 without any further adjuvant therapy, who now presents with a biopsy-proven RML central lung oligometastasis ~2 cm in size that is abutting the heart. She has an indeterminate small 6 mm RLL lung nodule that was not PET avid (but possibly below threshold for PET). She was asymptomatic with excellent KPS. I treated her with hypofractionated RT 70Gy in 10 Fx completed 10/30/22. She completed carboplatin/alimta/taxol x4 cycles in 01/2023 (Dr. Lion). She will now receive maintenance Keytruda. HISTORY & NARRATIVE: She completed a course of radiation on 10/30/22 and returns today for follow-up. Since completing radiation, she reports feeling generally well. Overall, she is doing well. No shortness of air, cough, dyspnea. No hemoptysis, no chestwall pain. She has some fatigue, but otherwise feels at baseline. Systemic plan is noted above. She last saw Dr. Lion on 06/19/23. PHYSICAL EXAMINATION: Vital signs: see RN ECO General Appearance: The patient is a well-developed, well-nourished female, sitting, in no acute distress. HEENT: normocephalic, atraumatic. Mucus membranes moist Lungs: Breathing comfortably at rest without wheeze. Good air movement b/l Skin: warm, dry, no rashes or lesions Neurologic: Patient awake and alert, responds to questions appropriately RADIOLOGY REVIEW: 06/04/23 CT chest FINDINGS: There is mild atelectasis in the right lower lobe in the area of the previously described nodule. In addition, there is dependent atelectasis in both lungs. No suspicious lung nodule is identified. No pleural effusion or pneumothorax. Cardiomegaly is noted. There is a chronic small pericardial effusion. Again seen is a fusiform aneurysm of the descending thoracic aorta. Maximum diameter is 6.4 cm just beyond the aortic arch. There is a questionable penetrating ulcer in the medial aspect of the mid descending aorta. There is mild thoracic spondylosis. IMPRESSION: 1. Interval resolution of the previously described right lower lobe nodule, likely resolved infection/inflammation. 2. Fusiform aneurysm of the descending thoracic aorta, measuring up to 6.4 cm, with possible penetrating ulcer in the mid descending aorta. I reviewed this personally, compared to her prior and her radiation treatment plan. ASSESSMENT & PLAN: She is now 8 mo status post completion of stereotactic radiation and is doing well clinically with no evidence of disease. I have asked her to return to see me back on a PRN basis. She will continue to receive systemic therapy with Dr. Lion and I defer restaging imaging to Dr. Lion. She knows to contact me with questions or concerns. Pain 0/10, so no change to pain mgmt required. Darnell Li MD Time spent: 30 minutes H&P - Exam - Vital Signs Vital Signs - 24 hr 07/07/23 10:59 Temperature 36.9 C Pulse Rate 60 Blood Pressure 134/92 H Pulse Oximetry 100 - Lab Results Laboratory Last Values WBC Cancelled 12/08/22 13:40 RBC Cancelled 12/08/22 13:40 Hgb Cancelled 12/08/22 13:40 Hct Cancelled 12/08/22 13:40 MCV Cancelled 12/08/22 13:40 MCH Cancelled 12/08/22 13:40 MCHC Cancelled 12/08/22 13:40 RDW Cancelled 12/08/22 13:40 Plt Count Cancelled 12/08/22 13:40 MPV Cancelled 12/08/22 13:40 Immature Gran % (Auto) Cancelled 12/08/22 13:40 Neut % (Auto) Cancelled 12/08/22 13:40 Lymph % (Auto) Cancelled 12/08/22 13:40 [place] % (Auto) Cancelled 12/08/22 13:40 Eos % (Auto) Cancelled 12/08/22 13:40 Baso % (Auto) Cancelled 12/08/22 13:40 Lymph # (Auto) Cancelled 12/08/22 13:40 [place] # (Auto) Cancelled 12/08/22 13:40 Eos # (Auto) Cancelled 12/08/22 13:40 Baso # (Auto) Cancelled
== END 2023-07-07 11:52 ==
LOC: AMCRADONC 11:00
PROVIDERS: PCP Family Medicine; Visit Provider Radiology Radiation Oncology
DX: C54.1 Malignant neoplasm of endometrium (principal); C78.00 Secondary malignant neoplasm of unspecified lung; Z08 Encounter for follow-up examination after completed treatment for malignant neoplasm; R91.1 Solitary pulmonary nodule; I10 Essential (primary) hypertension; R53.83 Other fatigue; J98.11 Atelectasis; I71.23 Aneurysm of the descending thoracic aorta, without rupture; J90 Pleural effusion, not elsewhere classified; I31.39 Other pericardial effusion (noninflammatory); R63.4 Abnormal weight loss; M54.9 Dorsalgia, unspecified; E21.3 Hyperparathyroidism, unspecified; G47.33 Obstructive sleep apnea (adult) (pediatric); Q24.4 Congenital subaortic stenosis; Z99.89 Dependence on other enabling machines and devices; Z85.42 Personal history of malignant neoplasm of other parts of uterus; Z92.3 Personal history of irradiation
CPT/HCPCS: 36415; 77280; 77290; 77293; 77300; 77301; 77334; 77336; 77338; 77386; 80047; 80053; 82607; 82728; 82746; 83540; 83550; 83735; 85025; 86304; 96413; 99212; G0463; J9271

== ENCOUNTER 2023-08-14 08:51 | Outpatient (CLI) | payer MEDICARE, SELFPAY ==
--- NOTE | ~2023-08-14 | CT_ITS ---
EXAMINATION: CT diagnostic chest w con DATE: 08/14/2023 09:34 INDICATION: ENDOMETRIAL CARCINOMA TECHNIQUE: Computed tomography (CT) of the chest was performed with 75 mL Omnipaque-350 intravenous c ontrast. Automated exposure control and iterative reconstruction technique were employed. The dose-le ngth product was 306.47 mGy-cm. COMPARISON: 06/04/2023; CT cap 03/02/2020. FINDINGS: CHEST: Thoracic aorta: Fusiform dilation of the descending thoracic aorta, measuring up to 7.0 cm in maximum transverse diameter, unchanged from the prior study which by my measurement was also 7.0 cm (previou sly reported 6.4 cm). 14 mm ulceration in the inferior aspect of the distal arch that is 11 mm deep. Questionable penetrating ulcer in the medial aspect of the mid descending thoracic aorta. Lung parenchyma and airways: Airways are clear. Subsegmental right middle lobe consolidation, slightl y increased from the prior study. Decreasing left medial basal atelectasis. Similar upper segment rig ht lower lobe scar. Improving nodular opacities in the right lower lobe. Thoracic inlet, axillae and chest wall: No thyroid or soft tissue mass. No axillary lymphadenopathy. Mediastinum: No mass or lymphadenopathy. Heart and pericardium: Cardiomegaly. Aortic valve calcification. Small volume pericardial fluid colle ction, slightly increased since the prior study. Coronary artery calcifications: Mild. Pleura: No effusion or mass. Upper abdomen: No significant finding. Thoracic bones: No acute osseous finding in the chest. IMPRESSION: Fusiform descending thoracic aortic aneurysm measuring up to 7 cm, with ulcerative plaque, unchanged in size or morphology, recommend a vascular surgery referral. Increasing right middle lobe consolidation, may represent new or worsening infection versus developin g chronic consolidation. Other air pulmonary opacities are improving. New 3 mm right middle lobe pulmonary nodule, consider low-dose noncontrast CT follow-up of the chest in 3 months. Marked cardiomegaly. Small pericardial effusion which has slightly increased in the interim. Reviewed, dictated and finalized at location K. IMPRESSION: Fusiform descending thoracic aortic aneurysm measuring up to 7 cm, with ulcerat dafne plaque, unchanged in size or morphology, recommend a vascular surgery refer ral. Increasing right middle lobe consolidation, may represent new or worsening infe ction versus developing chronic consolidation. Other air pulmonary opacities ar e improving. New 3 mm right middle lobe pulmonary nodule, consider low-dose noncontrast CT f ollow-up of the chest in 3 months. Marked cardiomegaly. Small pericardial effusion which has slightly increased in the interim.
[2023-08-14 09:20] LABS: Estimated Glomerular Filt Rate 45
== END 2023-08-14 08:52 | disposition home or self-care (01) ==
LOC: ANHIMG 08:54
PROVIDERS: PCP Family Medicine; Visit Provider Internal Medicine Hematology & Oncology
DX: C54.1 Malignant neoplasm of endometrium (principal); I71.23 Aneurysm of the descending thoracic aorta, without rupture; R91.8 Other nonspecific abnormal finding of lung field; I51.7 Cardiomegaly; I31.39 Other pericardial effusion (noninflammatory)
CPT/HCPCS: 71260; Q9967

== ENCOUNTER 2023-10-05 10:12 | Outpatient (CLI) | payer MEDICARE, SELFPAY ==
--- NOTE | ~2023-10-05 | US_ITS ---
EXAMINATION: US renal BI DATE: 10/05/2023 10:44 INDICATION: Stage IIIB chronic kidney disease. Hypertension. TECHNIQUE: Multiple ultrasound grayscale images of the kidneys were obtained. COMPARISON: CT dated 03/02/2023 FINDINGS: The right kidney measures 10.6 x 4.4 x 4.8 cm. The left kidney measures 10.6 x 4.9 x 4.1 cm. The kidn eys demonstrate normal echogenicity. 12 mm anechoic cysts at the mid right kidney. There is a 9 mm hy perechoic lesion at the lower pole the right kidney which corresponds to a macroscopic fat attenuatio n angiomyolipomas on prior CT. There is no hydronephrosis in either kidney. No stones identified. Th e bladder is partially decompressed with invagination of the bladder wall at the dome which protrudes into the lumen of the otherwise normal bladder. IMPRESSION: 1. Small right renal cyst and angiomyolipoma. Normal left kidney with no hydronephrosis in either ki dney. Reviewed, dictated and finalized at location A. IMPRESSION: 1. Small right renal cyst and angiomyolipoma. Normal left kidney with no hydro nephrosis in either kidney.
== END 2023-10-05 10:13 ==
LOC: MICIMG 10:14
PROVIDERS: PCP Family Medicine; Visit Provider Internal Medicine Nephrology
DX: I12.9 Hypertensive chronic kidney disease with stage 1 through stage 4 chronic kidney disease, or unspecified chronic kidney disease (principal); N18.32 Chronic kidney disease, stage 3b; N28.1 Cyst of kidney, acquired; D17.71 Benign lipomatous neoplasm of kidney
CPT/HCPCS: 76775

== ENCOUNTER 2023-11-06 08:34 | Outpatient (CLI) | payer MEDICARE, SELFPAY ==
--- NOTE | ~2023-11-06 | CT_ITS ---
EXAMINATION: CT chest abdomen pelvis w con DATE: 11/06/2023 09:19 INDICATION: Endometrial carcinoma TECHNIQUE: Computed tomography (CT) of the chest, abdomen, and pelvis was performed with 100 mL Omnip aque-350 intravenous contrast. Automated exposure control and iterative reconstruction technique were employed. The dose-length product was 1392.11 mGy-cm. COMPARISON: Chest CT dated 08/14/[address] chest, abdomen and pelvis dated 03/02/2023 FINDINGS: CHEST CT: There is compressive atelectasis at the medial left upper and lower lobes along the margins of a tort uous and aneurysmal thoracic aorta. Additional discoid atelectasis in the right middle lobe and mild dependent atelectasis in the right lower lobe. Mild cardiomegaly. Atherosclerotic coronary artery flavia cification. No pericardial effusion. No pathologically enlarged thoracic lymphadenopathy. Mild thorac ic spondylosis with chronic mild anterior wedging at T7 and T8. There is a fusiform aneurysm of the descending thoracic aorta which measures up to 7.0 x 6.6 cm in ma ximal diameter measured orthogonal to the axis of flow on the axial and sagittal imaging respectively immediately distal to the takeoff of the left subclavian artery. The aneurysm tapers to in the mid d escending aorta before increasing to 5.7 x 5.3 similar at the distal thoracic aorta and tapering to 3 .5 x 3.3 cm at the level of the takeoff of the celiac axis. There there are scalloped margins along i ntraluminal thrombus along the aneurysm sac which extends to the thoracic outlet which suggests this represents a sequela of a chronic type B aortic dissection. ABDOMEN/PELVIS CT: A couple small hepatic cysts measuring up to 1.3 cm. Focal hepatic steatosis at the ligamentum teres. The gallbladder, spleen, pancreas, bilateral adrenal glands and kidneys are normal. Moderate diverti culosis along the sigmoid colon without adjacent from trace stranding to suggest diverticulitis. Blad reina is normal. The uterus is not identified and has likely been surgically resected. There is calcifi ed atherosclerosis of the normal caliber abdominal aorta and many of the other arteries. Mild body wa ll, mesenteric and retroperitoneal edema. No free intraperitoneal gas or fluid. No pathologically enl arged abdominal or pelvic lymphadenopathy. Severe lumbar spondylosis. IMPRESSION: 1. Large fusiform aneurysm of the descending thoracic aorta which measures up to 7.0 x 6.6 cm likely related to a prior type B dissection. 2. No findings suspicious for metastatic disease in the chest, abdomen or pelvis. Reviewed, dictated and finalized at location A. IMPRESSION: 1. Large fusiform aneurysm of the descending thoracic aorta which measures up t o 7.0 x 6.6 cm likely related to a prior type B dissection. 2. No findings suspicious for metastatic disease in the chest, abdomen or pelvi s.
[2023-11-06 09:08] LABS: Estimated Glomerular Filt Rate 39
== END 2023-11-06 08:35 | disposition home or self-care (01) ==
PROVIDERS: PCP Family Medicine; Visit Provider Internal Medicine Hematology & Oncology
DX: C54.1 Malignant neoplasm of endometrium (principal)
CPT/HCPCS: 71260; 74177; Q9967

== ENCOUNTER 2023-12-02 14:35 | Observation (INO) | payer MEDICARE, SELFPAY ==
[2023-12-02] VITALS (10 sets, daily range): BP systolic 110–183; BP diastolic 80–109; PULSE 66–79; RESP 16–26; TEMP 36.1–36.6; O2SAT 98–100; BMI 28.5
--- NOTE | ~2023-12-02 | US_ITS ---
COMPLETE ABDOMINAL ULTRASOUND Ordering provider: Dominga Philippe APRN History: . thrombocytopenia . Comparison: None. FINDINGS: LIVER: Normal size and echotexture. No focal hepatic lesions or perihepatic fluid collections are eber ntified. Left lobe cyst is seen measuring 2.9 x 0.6 x 1 cm. Normal flow of the portal vein. GALLBLADDER: Gallbladder sludge is seen. No evidence for stones, gallbladder wall thickening or peric holecystic fluid collections. The wall thickness is 2.5 mm. A negative sonographic Carty's sign was noted. BILIARY DUCTS: No evidence for intra or extrahepatic biliary dilation. Common bile duct measures 6.1 mm in diameter which is within normal limits. PANCREAS: Not well demonstrated. Visualized portions are unremarkable. SPLEEN: Normal size, echotexture and contour and measures 8.8 cm in length. KIDNEYS: Right measures 10.1x 4.5x 5.3 cm in length and the left 10x 5.20x 4.8 cm in length. There is no evidence for hydronephrosis, solid renal mass, renal calculi or perinephric fluid collections. Cy st is seen in the right kidney which measures 1.6 x 1.4 x 1.4 cm. Echogenic areas seen in the cyst wh ich measures 0.4 x 0.2 x 0.7 cm most likely calcification. Stone is less likely.. Prominent parameters are seen in the left kidney. UPPER ABDOMINAL AORTA: The proximal portions measures 3.7 cm and the mid measures 2.3 cm. IVC: Patent. FREE FLUID: None. The post void volume is 388.5 cc. IMPRESSION: Gallbladder sludge. Left lobe hepatic cyst. Cyst in the right kidney. Slight dilatation of the upper abdominal aorta measuring 3.7 cm. Significant post void volume. Reviewed, dictated and finalized at location A.
--- NOTE | ~2023-12-02 | XR_ITS ---
XR chest 2V Ordering provider: Farooq Borrego MD History: 73 years Female with . dysnpena, hypertropic cardiomyopathy . Comparison: May 04, 2023 FINDINGS: MEDIASTINUM: The cardiac silhouette is slightly enlarged. Soft tissue density is seen in the area of the superior mediastinum with widening of the aortic arch suggestive of an aneurysm. Right Port-A-Cat h with the tip overlying superior vena cava. LUNGS: No infiltrates, effusions or pneumothorax. Atelectatic changes seen in the right lung base. Fo flavia pneumonia cannot be excluded. OTHER: No free air under the diaphragm. Degenerative the spine. IMPRESSION: Aneurysmal dilatation of the aorta. Cardiomegaly. Atelectasis versus focal pneumonia in the right lung base. Reviewed, dictated and finalized at location A.
--- NOTE | ~2023-12-02 | CT_ITS ---
Clinical Indication: SVC occlusion, pulmonary embolus CT Scan of the Chest with Contrast: Technique: Contiguous sections were acquired throughout the chest after intravenous administration of 100 cc of Omnipaque 350. Dose reduction technique was used on this scan by utilizing automated expos ure control and iterative reconstruction technique. The dose-length product (DLP) was 550.71 mGy-cm. COMPARISON: 11/06/2023 Findings: There is no evidence of any significant mediastinal, hilar or axillary lymphadenopathy. There is no f illing defect in the pulmonary arterial tree to suggest pulmonary embolus. Extensive aneurysm of the descending thoracic aorta extending to the level of the arch through the aortic hiatus is present, si milar to prior exam. No evidence for SVC occlusion. There is no evidence of pleural or pericardial effusion. The lungs are clear. No pulmonary nodules or infiltrates are noted. Images through the upper abdomen reveal no abnormalities. Impression: No pulmonary embolus. Extensive descending thoracic aortic aneurysm is essentially stable from prior exam. SVC is patent. Reviewed, dictated and finalized at [facility]. Impression: No pulmonary embolus. Extensive descending thoracic aortic aneurysm is essentially stable from prior exam. SVC is patent.
--- NOTE | ~2023-12-02 | US_ITS ---
RIGHT UPPER EXTREMITY VENOUS ULTRASOUND Ordering provider: Emily De Leon APRN History: . R/O Thrombus . Comparison: None. FINDINGS: --JUGULAR: Patent and free of thrombus. Normal compressibility, phasic flow and augmentation. --SUBCLAVIAN: Patent and free of thrombus. Normal compressibility, phasic flow and augmentation. --AXILLARY: Patent and free of thrombus. Normal compressibility, phasic flow and augmentation. --BRACHIAL: Patent and free of thrombus. Normal compressibility, phasic flow and augmentation. --CEPHALIC: Patent and free of thrombus. Normal compressibility, phasic flow and augmentation. --BASILIC: Patent and free of thrombus. Normal compressibility, phasic flow and augmentation. --RADIAL: Patent and free of thrombus. Normal compressibility, phasic flow and augmentation. --ULNAR: Patent and free of thrombus. Normal compressibility, phasic flow and augmentation. IMPRESSION: Negative right upper extremity venous US. No deep vein thrombosis. LEFT UPPER EXTREMITY VENOUS ULTRASOUND Ordering provider: Emily De Leon APRN History: . R/O Thrombus . Comparison: None. FINDINGS: --JUGULAR: Patent and free of thrombus. Normal compressibility, phasic flow and augmentation. --SUBCLAVIAN: Patent and free of thrombus. Normal compressibility, phasic flow and augmentation. --AXILLARY: Patent and free of thrombus. Normal compressibility, phasic flow and augmentation. --BRACHIAL: Patent and free of thrombus. Normal compressibility, phasic flow and augmentation. --CEPHALIC: Patent and free of thrombus. Normal compressibility, phasic flow and augmentation. --BASILIC: Patent and free of thrombus. Normal compressibility, phasic flow and augmentation. --RADIAL: Patent and free of thrombus. Normal compressibility, phasic flow and augmentation. --ULNAR: Patent and free of thrombus. Normal compressibility, phasic flow and augmentation. IMPRESSION: Negative left upper extremity venous US. No deep vein thrombosis. Reviewed, dictated and finalized at location A. IMPRESSION: Negative right upper extremity venous US. No deep vein thrombosis. LEFT UPPER EXTREMITY VENOUS ULTRASOUND Ordering provider: Emily De Leon APRN History: . R/O Thrombus . Comparison: None. FINDINGS: --JUGULAR: Patent and free of thrombus. Normal compressibility, phasic flow and augmentation. --SUBCLAVIAN: Patent and free of thrombus. Normal compressibility, phasic flow and augmentation. --AXILLARY: Patent and free of thrombus. Normal compressibility, phasic flow an d augmentation. --BRACHIAL: Patent and free of thrombus. Normal compressibility, phasic flow a nd augmentation. --CEPHALIC: Patent and free of thrombus. Normal compressibility, phasic flow an d augmentation. --BASILIC: Patent and free of thrombus. Normal compressibility, phasic flow an d augmentation. --RADIAL: Patent and free of thrombus. Normal compressibility, phasic flow and augmentation. --ULNAR: Patent and free of thrombus. Normal compressibility, phasic flow and augmentation.
--- NOTE | 2023-12-02 14:45 | ECG_ITS ---
Test Date: 2023-12-02 14:57:53 Measurements Intervals Eunice Rate: 65 P: -7 VT: 180 QRS: -14 QRSD: 97 T: 207 QT: 441 QTc: 459 Interpretive Statements SINUS RHYTHM LEFT VENTRICULAR HYPERTROPHY AND ST-T CHANGE ST-T WAVE ABNORMALITY IN ANTEROLATERAL LEADS- CONSIDER ISCHEMIA ABNORMAL ECG No previous ECG available for comparison Electronically Signed On 12-02-2023 17:15:58 CDT by Rubin Carrizales D.O.
[2023-12-02 15:03] LABS: Glucose Point of Care 464 mg/dl (65-105)
[2023-12-02 15:39] LABS: Appearance Urine Clear (Clear); Bacteria Urine 1+ /hpf; Bilirubin Urine Negative (Negative); Blood Urine Negative (Negative); Color Urine Yellow (Yellow); Glucose Urine UA 3+ mg/dL (Negative); Ketones Urine Negative (Negative); Leukocyte Esterase Ur Negative LEU/UL (Negative); Nitrate Urine Negative (Negative); Non Pathogenic Casts 0-2; Protein Urine 1+ mg/dL (Negative); RBC Urine 0-2 /hpf (0-2); Squamous Epithelial Cell Urine Occasional /hpf (Few); pH Urine 6.5 (5.0-9.0)
[2023-12-02 15:44] LABS: Basophils Percent Auto 0.3 % (0.2-1.2); Hemoglobin 10.6 g/dL (12.0-15.0); Immature Granulocyte Percent A 7.6 % (0-0.5); Lymphocytes Absolute Auto 0.72 K/mm3 (0.9-3.2); Lymphocytes Percent Auto 7.8 % (18.3-44.2); Mean Corpuscular HGB Conc 31.2 g/dl (32-36); Mean Corpuscular Hemoglobin 29.8 pg (26-34); Mean Corpuscular Volume 95.5 fl (80-100); Mean Platelet Volume 13.1 fl (7.4-10.4); Monocytes Absolute Auto 0.3 K/mm3 (0.1-0.6); Monocytes Percent Auto 3.7 % (2.6-8.5); Neutrophils Absolute Auto 7.4 K/mm3 (1.3-6.7); Neutrophils Percent Auto 80.6 % (45.5-73.1); Platelet Count Result 54 k/mm3 (150-375); Red Blood Count 3.56 M/mm3 (4.2-5.4); Red Cell Distribution Width 16.1 % (11.5-14.5); White Blood Count 9.2 K/mm3 (4.5-10.0)
[2023-12-02 16:03] LABS: Add Urine Microscopic? YES
[2023-12-02 16:09] LABS: Alanine Aminotransferase 55 U/L (6-35); Albumin Level 3.3 g/dL (3.5-5.1); Alkaline Phosphatase 81 U/L (38-126); Anion Gap 9 mmol/L (4-12); Aspartate Amino Transferase 20 U/L (14-36); Bilirubin,Total 0.9 mg/dL (0.2-1.3); Blood Urea Nitrogen 51 mg/dL (7-17); Calcium 9.2 mg/dL (8.4-10.2); Carbon Dioxide 27 mmol/L (22-30); Chloride 104 mmol/L (98-107); Estimated CRCL calculation 48 ml/min; Estimated Glomerular Filt Rate 54; Glucose 481 mg/dL (65-110); Potassium 4.4 mmol/L (3.4-5.0); Sodium 140 mmol/L (137-145)
[2023-12-02 16:23] LABS: NT Pro B Type Natriuretic Pept 12500 pg/mL (19.9-100); Troponin I 0.094 ng/mL (0.000-0.034)
[2023-12-02 16:24] LABS: Anisocytosis 1+; Platelet Estimate Decreased (Adequate); Schistocytes None Seen
--- NOTE | 2023-12-02 16:28 | ED.SOB ---
HPI - SOB/Dyspnea General Chief Complaint: Shortness of Breath/Dyspnea Stated Complaint: weakness slight SOB Time Seen by Provider: 12/02/23 14:44 History of Present Illness HPI Narrative: Patient is a 73-year-old female who presents ER with her last shortness of breath. She has been dealing with increased edema over last month. She has been on Lasix without improvement. She is rehabbing shortness of breath with exertion. No runny nose or sore throat or productive cough. She is unsure if it is related to the Keytruda infusions that she is receiving for her uterine cancer. Related Data Home Medications Medication Instructions Recorded Confirmed fluticasone propionate 50 1 spray intranasal DAILY 09/02/21 11/27/23 mcg/actuation nasal spray,suspension polyethylene glycol 3350 17 gram 17 g PO DAILY 11/12/22 11/27/23 oral powder packet (Miralax) mecobalamin (vitamin B12) 500 mcg 500 mcg PO DAILY 03/24/23 11/27/23 chewable tablet potassium chloride 10 mEq 10 meq PO DAILY 03/24/23 11/27/23 tablet,extended release levothyroxine 100 mcg capsule 100 mcg PO DAILY 08/21/23 11/27/23 Allergies Allergy/AdvReac Type Severity Reaction Status Date / Time iodine contrast Allergy Mild Itching Uncoded 12/02/23 15:08 Review of Systems Review of Systems: All systems reviewed & are unremarkable except as noted in HPI and below Constitutional: Constitutional: Reports no additional constitutional complaints ENT: Reports system reviewed and no additional complaints, except as documented Cardiovascular: Cardiovascular: Reports no additional cardiovascular complaints Respiratory: Respiratory: Denies chest congestion, Denies cough, Reports dyspnea and Denies wheezing Gastrointestinal: Gastrointestinal: Reports no additional gastrointestinal complaints Musculoskeletal: Musculoskeletal: Reports no additional musculoskeletal complaints [facility] Past Medical History Medical History Abnormal weight loss Adenocarcinoma Back pain Cardiomyopathy Chronic rhinitis Decreased appetite Descending thoracic aortic aneurysm Endometrial ca Essential (primary) hypertension Hyperparathyroidism Hypertrophic obstructive cardiomyopathy SVITLANA (iron deficiency anemia) MICHAEL on CPAP Pulmonary hypertension Rhinitis Subaortic stenosis Surgical History Surgical History History of cataract extraction 09/11/2010 History of salpingectomy Right side 09/12/2013 Family History Family History Mother Diabetes mellitus Family history of arthritis Father Patient's father is in good health Social History Social History Smoking status: Never smoker Second hand tobacco smoke exposure: No Alcohol intake: never Substance use: never Substance use type: does not use Do You Feel Safe in your Home?: Yes Lack of Transportation: No Lack of Food: Never True Current Housing: I Have Housing Concerned About Future Housing: No Difficulty Paying Gas/Electric Bills: No Difficulty Paying for Meds: No Currently Unemployed: No Education: Bachelor's Degree Difficulty w/ Childcare or Family Care: No Living arrangements: with family Occupation/Education: occupation Gender identity (if verbalized by the patient): Female Sexual Orientation (if Verbalized by the Patient): Straight or Heterosexual Spiritual care concerns: No Agree to blood products: Yes Exam Narrative: GENERAL: Well-appearing, obese, and in no acute distress. HEAD: Normocephalic, atraumatic. ENT: Mucous membranes moist. CHEST: Clear to auscultation. No respiratory distress. HEART: Regular rate and rhythm. Normal peripheral pulses. ABDOMEN: Soft, nontender, nondistended EXTREMITIES: Normal range of motion. 3+ edema. SKIN: Warm, dry, no rash.
[2023-12-02] MEDS: FUROSEMIDE INJ 40 MG/4 ML VIAL IV PUSH ×2 (17:00→21:13)
[2023-12-02] MEDS: INSULIN HUMAN REGULAR (*BKC) 100 UNITS/ML IV PUSH (17:02)
[2023-12-02 17:49] LABS: Hemoglobin A1C 8.1 % (<5.7)
[2023-12-02 21:17] LABS: Glucose Point of Care 357 mg/dl (65-105)
--- NOTE | 2023-12-02 21:20 | ADMGEN ---
This patient, Rosalva Marina, was admitted to IMU Room 202-01 at 2121. Patient/family oriented to hospital policies and general routines including ID bracelet, bed and alarms, visiting hours, pain management, procedures, bathroom and other care routines, personal items, smoking policy, room service/diet, and visiting hours. Information on how to activate the Rapid Response Team has been discussed. Patient/Family are encouraged to report perceived risks to care and to ask questions if they do not understand what they are told or what they should do.
--- NOTE | 2023-12-02 23:06 | PM.IMHP ---
H&P: HPI History of Present Illness Date/Time: 12/02/23 17:30 Chief Complaint: Weakness, shortness of breath. 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 The patient provides the following history. Over the past 4 weeks she has developed swelling in her legs, abdomen, and neck and she has gained 25 lb. She is getting dyspneic on exertion. She was started on furosemide and has lost about 10 lb but she continues to feel weak and short of breath. She is otherwise feeling okay aside from having 2 loose stools a day. She denies headache, fever, chills, sweats, cold and flu symptoms, chest pain, pleuritic pain, orthopnea, paroxysmal nocturnal dyspnea, nausea, vomiting, dysuria, dysphagia, or calf pain. In the ED: She was afebrile on arrival with stable vital signs. Labs were significant for WBC count of 9.2, hemoglobin 10.6, platelet 54, BUN 51, creatinine 1.20, glucose 481, troponin 0.094, proBNP 55600. Urine was positive for 1+ protein, 3+ glucose, 6 to 10 WBC, and 1+ bacteria. Chest x-ray showed aneurysmal dilatation of the aorta and cardiomegaly and atelectasis versus focal pneumonia in the right lung base. She was given 40 mg IV furosemide and 5 mg IV insulin and she is being admitted in this setting for further workup and evaluation. She has not been diagnosed with diabetes previously. Review of Systems Review of Systems: 12 systems were reviewed and are negative except for as per HPI. FORMERLY [facility] Past Medical History Medical History (Updated 12/02/23 @ 23:21 by Nery Martins PA-C) Cardiomyopathy Chronic anemia Chronic kidney disease, stage 3 Chronic rhinitis Descending thoracic aortic aneurysm Endometrial adenocarcinoma Essential (primary) hypertension Hyperparathyroidism Hypertrophic obstructive cardiomyopathy MICHAEL on CPAP Pulmonary hypertension Rhinitis Subaortic stenosis Surgical History Surgical History History of cataract extraction 09/11/2010 History of salpingectomy Right side 09/12/2013 Family History Family History Mother Diabetes mellitus Family history of arthritis Father Patient's father is in good health Social History Social History (Updated 12/02/23 @ 23:17 by Nery Martins PA-C) Social History: Surrogate medical decision maker: Madelin Salgado, daughter. Code status: Full code. Smoking status: Never smoker Second hand tobacco smoke exposure: No Alcohol intake: never Substance use: never Substance use type: does not use Do You Feel Safe in your Home?: Yes Lack of Transportation: No Lack of Food: Never True Current Housing: Decline to Answer Concerned About Future Housing: No Difficulty Paying Gas/Electric Bills: No Difficulty Paying for Meds: No Currently Unemployed: No Education: Decline to Answer Difficulty w/ Childcare or Family Care: No Spiritual care concerns: No Agree to blood products: Yes Meds Home Medications and Allergies Home Medications Medication Instructions Recorded Confirmed Type fluticasone propionate 50 1 spray intranasal DAILY 09/02/21 12/02/23 History mcg/actuation nasal spray,suspension polyethylene glycol 3350 17 gram 17 g PO DAILY PRN Constipation 11/12/22 12/02/23 History oral powder packet (Miralax) ferrous sulfate 325 mg (65 mg 325 mg PO BID #180 tabs 03/09/23 12/02/23 Rx iron) tablet mecobalamin (vitamin B12) 500 mcg 500 mcg PO DAILY 03/24/23 12/02/23 History chewable tablet potassium chloride 10 mEq 10 meq PO DAILY 03/24/23 12/02/23 History tablet,extende
[2023-12-03] VITALS (18 sets, daily range): BP systolic 130–180; BP diastolic 90–107; PULSE 71–103; RESP 16–394; TEMP 36.1–36.9; O2SAT 96–100; BMI 27.9
--- NOTE | 2023-12-03 | ECHO_ITS ---
Patient Info Name: Rosalva Marina Age: 73 years : 1950 Gender: Female Ht: 70 in Wt: 194 lbs BSA: 2.10 m2 HR: 101 bpm BP: 180 / 90 mmHg Technical Quality: Fair Exam Date: 12/03/2023 9:21 AM Exam Location: Echo Lab Patient Status: Inpatient Admit Date: 12/02/2023 Staff Ordering Physician: Emily De Leon APRN Gre[employer]ack Worker: Jonas Tabares RDCS Attending Provider: Emily De Leon APRN Referring Physician: Moises FRENCH; Exam Type: CA echo doppler color flow Study Info Indications - CHF/R/O SVCS Complete two-dimensional, color flow and Doppler transthoracic echocardiogram is performed. Summary 1. Technically difficult study with limited views. 2. Left ventricular chamber dimension is normal. 3. Left ventricular systolic function is normal, estimated at 60-65%. 4. There is severely increased left ventricular wall thickness. 5. Right ventricular chamber dimension is decreased. 6. Right ventricular systolic function is normal. 7. There is mild aortic valve regurgitation. 8. There is mild mitral valve regurgitation. 9. The aortic root size at the sinus of Valsalva is mildly dilated. 10. There is trivial anterior pericardial effusion. Left Ventricle Left ventricular chamber dimension is normal. Left ventricular systolic function is normal, estimated at 60-65%. There is severely increased left ventricular wall thickness. Right Ventricle Right ventricular chamber dimension is decreased. Right ventricular systolic function is normal. Left Atria Left atrial chamber dimension is normal. Right Atria Right atrial chamber dimension is normal. Atrial Septum Intact interatrial septum visualized by color flow imaging. Aortic Valve The aortic valve is not well visualized. There is mild aortic valve regurgitation. Pulmonic Valve The pulmonic valve is not well visualized. Mitral Valve There is mild mitral valve regurgitation. Tricuspid Valve There is trace tricuspid valve regurgitation. Pericardium/Pleural The pericardium appears epicardial fat pad. There is trivial anterior pericardial effusion. Inferior Vena Cava Normal inferior vena cava with >50% collapse upon inspiration consistent with normal right atrial pressure, 3 mmHg. Aorta The aortic root size at the sinus of Valsalva is mildly dilated. Left Ventricular Outflow Tract Name Value Normal LVOT 2D LVOT Diameter 2.2 cm LVOT Doppler LVOT Peak Gradient 15 mmHg LVOT Mean Gradient 11 mmHg LVOT VTI 37 cm LVOT VTI/AV VTI Ratio 0.7 LVOT Stroke Volume 137 ml LVOT CO 11.6 l/min LVOT CI 5.5 l/min/m2 Pulmonic Valve Name Value Normal PV Doppler PV Peak Gradient 6 mmHg Mitral Valve
[2023-12-03 04:59] LABS: Basophils Percent Auto 0.4 % (0.2-1.2); Hematocrit 35.7 % (37.0-47.0); Hemoglobin 11.4 g/dL (12.0-15.0); INR 0.9; Immature Granulocyte Absolute 0.61 K/mm3 (0.00-0.031); Immature Granulocyte Percent A 7.2 % (0-0.5); Immature Platelet Fraction Pct 9.7 % (0.9-11.2); Lymphocytes Absolute Auto 0.91 K/mm3 (0.9-3.2); Lymphocytes Percent Auto 10.8 % (18.3-44.2); Mean Corpuscular HGB Conc 31.9 g/dl (32-36); Mean Corpuscular Hemoglobin 30.2 pg (26-34); Mean Corpuscular Volume 94.4 fl (80-100); Mean Platelet Volume 13.3 fl (7.4-10.4); Monocytes Absolute Auto 0.2 K/mm3 (0.1-0.6); Monocytes Percent Auto 2.8 % (2.6-8.5); Neutrophils Absolute Auto 6.6 K/mm3 (1.3-6.7); Neutrophils Percent Auto 78.8 % (45.5-73.1); Platelet Count Result 56 k/mm3 (150-375); Prothrombin Time 12.7 Seconds (11.1-14.7); Red Blood Count 3.78 M/mm3 (4.2-5.4); Red Cell Distribution Width 16.2 % (11.5-14.5); White Blood Count 8.4 K/mm3 (4.5-10.0)
[2023-12-03 05:42] LABS: Alanine Aminotransferase 56 U/L (6-35); Albumin Level 3.5 g/dL (3.5-5.1); Alkaline Phosphatase 78 U/L (38-126); Anion Gap 9 mmol/L (4-12); Aspartate Amino Transferase 21 U/L (14-36); Bilirubin,Total 0.8 mg/dL (0.2-1.3); Blood Urea Nitrogen 55 mg/dL (7-17); Carbon Dioxide 31 mmol/L (22-30); Chloride 98 mmol/L (98-107); Estimated CRCL calculation 36 ml/min; Estimated Glomerular Filt Rate 39; Glucose 318 mg/dL (65-110); Magnesium 2.1 mg/dL (1.6-2.3); Potassium 4.2 mmol/L (3.4-5.0); Sodium 138 mmol/L (137-145)
[2023-12-03 05:45] LABS: Anisocytosis 1+; Ovalocytes 1+; Platelet Estimate Decreased (Adequate); Schistocytes None Seen
[2023-12-03] MEDS: LEVOTHYROXINE SODIUM 100 MCG TABLET PO (06:05)
[2023-12-03 06:56] LABS: Glucose Point of Care 265 mg/dl (65-105)
[2023-12-03 08:58] LABS: Iron 65 ug/dL (37-170)
[2023-12-03] MEDS: dilTIAZem HCL CD 180 MG CAP.24HR 360 MG PO (09:00)
[2023-12-03] MEDS: METOPROLOL SUCCINATE EXT REL 50 MG TABCR 150 MG PO (09:00)
[2023-12-03] MEDS: oxyBUTYnin CHLORIDE XL 5 MG TAB.ER.24 BY MOUTH (09:00)
[2023-12-03] MEDS: calcitrioL 0.25 MCG CAPSULE PO (09:00)
[2023-12-03] MEDS: FAMOTIDINE 20 MG TABLET 40 MG PO (09:00)
[2023-12-03] MEDS: allopurinoL 300 MG TABLET PO (09:00)
[2023-12-03] MEDS: LORATADINE 10 MG TABLET PO (09:01)
[2023-12-03] MEDS: INSULIN ASPART (*BKC) 100 UNITS/ML SUB-Q ×2 (09:01→12:38)
[2023-12-03] MEDS: CYANOCOBALAMIN 500 MCG TABLET PO (09:01)
[2023-12-03] MEDS: FUROSEMIDE 20 MG TABLET PO (09:01)
[2023-12-03] MEDS: FLUTICASONE PROPIONATE 0.05% NA SPR 16 GM BTL (*BKC) 1 SPRAY NASAL (09:02)
--- NOTE | 2023-12-03 09:08 | P.PNIM_ITS ---
Progress Note: A&P Assessment and Plan (1) Facial edema: Code(s): R60.0 - Localized edema Status: Acute (2) Elevated troponin: Code(s): R79.89 - Other specified abnormal findings of blood chemistry Status: Acute (3) Diabetes mellitus, new onset: Code(s): E11.9 - Type 2 diabetes mellitus without complications Status: Acute (4) Essential (primary) hypertension: Code(s): I10 - Essential (primary) hypertension Status: Acute (5) Thrombocytopenia: Code(s): D69.6 - Thrombocytopenia, unspecified Status: Acute (6) Chronic kidney disease, stage 3: Code(s): N18.30 - Chronic kidney disease, stage 3 unspecified Status: Acute (7) Chronic anemia: Code(s): D64.9 - Anemia, unspecified Status: Acute (8) Acute exacerbation of CHF (congestive heart failure): Code(s): I50.9 - Heart failure, unspecified Status: Acute (9) Endometrial adenocarcinoma: Code(s): C54.1 - Malignant neoplasm of endometrium Status: Acute (10) Descending thoracic aortic aneurysm: Code(s): I71.23 - Aneurysm of the descending thoracic aorta, without rupture Status: Acute (11) Obesity: Code(s): E66.9 - Obesity, unspecified Status: Acute (12) MICHAEL on CPAP: Code(s): G47.33 - Obstructive sleep apnea (adult) (pediatric); Z99.89 - Dependence on other enabling machines and devices Status: Acute Plan Generalized Edema/Facial Edema * Progressively worse over two weeks * possibly medication induced holding Keytruda * Was given IV lasix in the ED * Gentle Diuresis * Port-a-cath Present * BNP >67126 * CTA pending to R/O SVCS pre-medicated due to contrast allergy * Venous doppler pending Acute on chronic diastolic heart failure/cardiomyopathy * Concern for worsening heart function due to cancer treatment * BNP 12,500 * cardiology consulted * IV Lasix in ED * previous echocardiogram results:Diastolic dysfunction LVEF 80% * echocardiogram pending * EKG: LV hypertrophy SR * chest x-ray: Aneurysm dilation of the aorta, cardiomegaly, atelectasis * Lipid panel, TSH, liver function test. * Optimize Cameron inhibitors, beta-blockers, ARNI * Daily weight. * Optimize blood pressure less than 130/80. * Fall risk assessment. Thrombocytopenia/endometrial adeno carcinoma/chronic anemia * Hematology/Oncology consult * Holding Keytruda due to adverse effects * Newly diagnosed with hypothyroidism and diabetes likely secondary to medication * iron studies, b12, ITP antibody as well as abd ultrasound to rule our liver or spleen sequestration. * Transfuse plt if <20 or if actively bleeding/symptomatic Hypothyroidism * New onset likely secondary to Keytruda currently on home * Hematology managing level thyroxine * TSH/T4 New onset diabetes * Hyperglycemic POA * could be Type 1 induced by Keytruda medication * Accu-Cheks a.c. HS * sliding scale insulin * Hemoglobin A1c 8.1 * lipid panel pending * Diabetic diet * consult to dietitian * Optimize Cameron inhibitors and statins. * Watch for hypoglycemia/hypoglycemic protocol ordered Elevated troponins * Possibly secondary to ischemic demand * Continue with serial troponin downtrend * Cardiology consult * Echocardiogram pending * EKG showing sinus rhythm with LV hypertrophy * Continuous cardiac monitoring Obesity * encourage increased on physical activity and lifestyle modifications * encourage outpatient weight loss clinic *
--- NOTE | 2023-12-03 09:08 | PM.IMPN ---
Progress Note: A&P Assessment and Plan (1) Facial edema: Code(s): R60.0 - Localized edema Status: Acute (2) Elevated troponin: Code(s): R79.89 - Other specified abnormal findings of blood chemistry Status: Acute (3) Diabetes mellitus, new onset: Code(s): E11.9 - Type 2 diabetes mellitus without complications Status: Acute (4) Essential (primary) hypertension: Code(s): I10 - Essential (primary) hypertension Status: Acute (5) Thrombocytopenia: Code(s): D69.6 - Thrombocytopenia, unspecified Status: Acute (6) Chronic kidney disease, stage 3: Code(s): N18.30 - Chronic kidney disease, stage 3 unspecified Status: Acute (7) Chronic anemia: Code(s): D64.9 - Anemia, unspecified Status: Acute (8) Acute exacerbation of CHF (congestive heart failure): Code(s): I50.9 - Heart failure, unspecified Status: Acute (9) Endometrial adenocarcinoma: Code(s): C54.1 - Malignant neoplasm of endometrium Status: Acute (10) Descending thoracic aortic aneurysm: Code(s): I71.23 - Aneurysm of the descending thoracic aorta, without rupture Status: Acute (11) Obesity: Code(s): E66.9 - Obesity, unspecified Status: Acute (12) MICHAEL on CPAP: Code(s): G47.33 - Obstructive sleep apnea (adult) (pediatric); Z99.89 - Dependence on other enabling machines and devices Status: Acute Plan Generalized Edema/Facial Edema Progressively worse over two weeks possibly medication induced holding Keytruda Was given IV lasix in the ED Gentle Diuresis Port-a-cath Present BNP >11255 CTA pending to R/O SVCS pre-medicated due to contrast allergy Venous doppler pending Acute on chronic diastolic heart failure/cardiomyopathy Concern for worsening heart function due to cancer treatment BNP 12,500 cardiology consulted IV Lasix in ED previous echocardiogram results:Diastolic dysfunction LVEF 80% echocardiogram pending EKG: LV hypertrophy SR chest x-ray: Aneurysm dilation of the aorta, cardiomegaly, atelectasis Lipid panel, TSH, liver function test. Optimize Cameron inhibitors, beta-blockers, ARNI Daily weight. Optimize blood pressure less than 130/80. Fall risk assessment. Thrombocytopenia/endometrial adeno carcinoma/chronic anemia Hematology/Oncology consult Holding Keytruda due to adverse effects Newly diagnosed with hypothyroidism and diabetes likely secondary to medication iron studies, b12, ITP antibody as well as abd ultrasound to rule our liver or spleen sequestration. Transfuse plt if <20 or if actively bleeding/symptomatic Hypothyroidism New onset likely secondary to Keytruda currently on home Hematology managing level thyroxine TSH/T4 New onset diabetes Hyperglycemic POA could be Type 1 induced by Keytruda medication Accu-Cheks a.c. HS sliding scale insulin Hemoglobin A1c 8.1 lipid panel pending Diabetic diet consult to dietitian Optimize Cameron inhibitors and statins. Watch for hypoglycemia/hypoglycemic protocol ordered Elevated troponins Possibly secondary to ischemic demand Continue with serial troponin downtrend Cardiology consult Echocardiogram pending EKG showing sinus rhythm with LV hypertrophy Continuous cardiac monitoring Obesity encourage increased on physical activity and lifestyle modifications encourage outpatient weight loss clinic BMI . consult to dietitian MICHAEL At home setting CPAP Code status: Full code per patient DVT prophylaxis: SCD Stress ulcer prophylaxis: Protonix 40 daily PT/OT notes: Ambulatory Disposition: Patient was admitted to IMU for further evaluation and treatment of generalized edema including facial edema, CHF exacerbation, elevated troponins and SVCS rule out pending ultrasound CTA patient does occlusion will need transferred for vascular. Time Spent With Patient T
[2023-12-03 09:18] LABS: Percent Iron Saturation 26 % (20-50)
--- NOTE | 2023-12-03 09:29 | PDONCCN ---
HPI - Date of Consult Date/Time: 12/03/23 17:39 <Davi Lion - 12/03/23 17:44> 12/03/23 09:29 <Dominga Philippe - 12/03/23 09:38> Requesting Physician: Emily De Leon APRN <Davi Lion - 12/03/23 17:44> Emily De Leon APRN <Dominga Philippe - 12/03/23 09:38> Primary Care Provider: Nory Pabon MD <Davi Lion - 12/03/23 17:44> Nory Pabon MD <Dominga Philippe - 12/03/23 09:38> - Consult Narrative Reason for consult: Thrombocytopenia <Dominga Philippe - 12/03/23 09:38> Narrative: Rosalva Marina is a 73 year old female <Davi Lion - 12/03/23 17:44> Rosalva Marina is a 73 year old female with a past medical history of hypertrophic obstructive cardiomyopathy, hypertension, 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 Patient was last seen in office on 11/13/23 for maintenance Keytruda for metastatic endometrial cancer. At that time, she presented with new onset of 17lb weight gain, swelling, and thrombocytopenia so treatment was held and 20mg of lasix was started BID. She reports her highest weight was 220lb and today she was 194lbs. She denies any shortness of breath, or cough at this time. She feels as if her legs are really tight and feels as if her face is swollen as well. She reports her appetite has been stable and has had intermittent diarrhea. Labs notable for WBC 8.4, Hgb 11.4, Hct 35.7, Plt 56,000. <Dominga Philippe - 12/03/23 09:50> Review of Systems - Review of Systems All systems reviewed & are unremarkable except as noted in HPI and bel <Dominga Philippe - 12/03/23 09:50> [facility] Medical History: Medical History (Last Reviewed 12/03/23 @ 11:17 by Sadie Huizar MD) Cardiomyopathy Chronic anemia Chronic kidney disease, stage 3 Chronic rhinitis Descending thoracic aortic aneurysm Endometrial adenocarcinoma Essential (primary) hypertension Hyperparathyroidism Hypertrophic obstructive cardiomyopathy MICHAEL on CPAP Pulmonary hypertension Rhinitis Subaortic stenosis <Davi Lion - 12/03/23 17:44> Medical History (Last Reviewed 12/03/23 @ 11:17 by Sadie Huizar MD) Cardiomyopathy Chronic anemia Chronic kidney disease, stage 3 Chronic rhinitis Descending thoracic aortic aneurysm Endometrial adenocarcinoma Essential (primary) hypertension Hyperparathyroidism Hypertrophic obstructive cardiomyopathy MICHAEL on CPAP Pulmonary hypertension Rhinitis Subaortic stenosis <Dominga Philippe - 12/03/23 15:13> Surgical History: Surgical History (Last Reviewed 12/03/23 @ 11:17 by Sadie Huizar MD) History of cataract extraction 09/11/2010 History of salpingectomy Right side 09/12/2013 <Davi Lion - 12/03/23 17:44> Surgical History (Last Reviewed 12/03/23 @ 11:17 by Sadie Huizar MD) History of cataract extraction 09/11/2010 History of salpingectomy Right side 09/12/2013 <Dominga Philippe - 12/03/23 15:13> Family History: Family History (Last Reviewed 12/03/23 @ 11:17 by Sadie Huizar MD) Mother Diabetes mellitus Family history of arthritis Father Patient's father is in good health <Davi Lion - 12/03/23 17:44> Family History (Last Reviewed 12/03/23 @ 11:17 by Sadie Huizar MD) Mother Diabetes mellitus Family history of arthritis Father Patient's father is in good health <Dominga Phiilppe - 12/03/23 15:13> - Social History Social History: Social History (Last Reviewed 12/03/23 @ 11:17 by Sadie Huizar MD) Alcohol Use: Alcohol intake: never Substance Use: Substance use: never Substance use type: does no
[2023-12-03 09:40] LABS: Troponin I 0.153 ng/mL (0.000-0.034)
[2023-12-03 10:10] LABS: Folic Acid 7.4 ng/mL (2.76->20); Vitamin B12 > 1000.0 pg/mL (239-931)
--- NOTE | 2023-12-03 11:03 | PM.CNCAR ---
Assessment and Plan Assessment and plan (1) Acute exacerbation of CHF (congestive heart failure): Code(s): I50.9 - Heart failure, unspecified Status: Acute Assessment and Plan: As patient still has some volume overload, will give a one time dose of IV Lasix. Please monitor strict I/Os. Avoid overdiuresis, dehydration, hypotension, etc. given HOCM. Given her facial swelling and port-a-cath in place, agree with obtaining CTA to evaluate for SVC syndrome. Echo ordered and pending. (2) Hypertrophic obstructive cardiomyopathy: Code(s): I42.1 - Obstructive hypertrophic cardiomyopathy Status: Acute Assessment and Plan: Continue Diltiazem, Metoprolol. Echocardiogram ordered and pending. (3) Elevated troponin: Code(s): R79.89 - Other specified abnormal findings of blood chemistry Status: Acute Assessment and Plan: Mildly elevated. Likely due to volume overload state rather than an acute coronary syndrome. (4) Descending thoracic aortic aneurysm: Code(s): I71.23 - Aneurysm of the descending thoracic aorta, without rupture Status: Acute Assessment and Plan: Needs to see Vascular Surgery. Will have our office place a referral to Vascular Surgery. (5) New onset type 2 diabetes mellitus: Code(s): E11.9 - Type 2 diabetes mellitus without complications Status: Acute Assessment and Plan: Management as per primary team. (6) Essential (primary) hypertension: Code(s): I10 - Essential (primary) hypertension Status: Acute Assessment and Plan: Continue Metoprolol and Diltiazem. (7) Thrombocytopenia: Code(s): D69.6 - Thrombocytopenia, unspecified Status: Acute Assessment and Plan: Hematology consulted, possibly due to Keytruda. History of Present Illness History of Present Illness Consult date/time: 12/03/23 11:03 Requesting physician: Nery Martins PA-C Consult reason: congestive heart failure Reason For Visit: CHF Exacerbation/Hyperglycemia Narrative: This is a 73 year old female with hypertrophic cardiomyopathy, descending thoracic aortic aneurysm, hypertension, uterine cancer, obstructive sleep apnea, hypothyroidism who presented to the ED for weakness and swelling. Patient reports swelling in her face, abdomen, and lower extremities. She reports that she has gained about 25lbs. She denies shortness of breath or orthopnea. Workup in the ER shows SCr of 1.2, now 1.6. Elevated blood glucose of 481. Hgb A1c is 81. This is a new diagnosis of diabetes for her. Troponins of 0.094, 0.153. TSH elevated at 5.180. CXR shows aneurysmal dilatation of the aorta, cardiomegaly, atelectasis versus focal pneumonia in the right lung base. Of note, patient had a reccent CT C/A/P that showed large fusiform aneurysm of the descending thoracic aorta, which measures up to 7.0 cm x 6.6 cm likely related to a prior type B dissection. CT Chest from July 2023 shows that the aneurysm was measuring up to 7cm at that time as well. CT Chest May 2023 showed aneurysm measuring 6.4cm (although per radiology read on the CT Chest from July 2023, they were measuring 7cm on the May scan rather than 6.4cm as was reported). Echocardiogram April 2022 shows normal left ventricular size, asymmetric septal hypertrophy, resting LVOT gradient is 20mmHg. Normal global systolic function with LVEF >70%. Modest enlargement of left atrium. Mild mitral valve regurgitation. Patient follows with Dr. Farrar in the clinic for her hypertrophic cardiomyopathy. Review of Systems Review of Systems: All systems reviewed & are unremarkable except as noted in HPI and below (HPI) FOR[facility]LY [facility] Past Medical History Medical History Cardiomyopathy Chronic anemia Chronic kidney disease, stage 3 Chronic rhinitis Descending thoracic aortic aneurysm Endometrial adenocarcinoma Essential (primary) hyp
--- NOTE | 2023-12-03 11:23 | PC.NURSE ---
Spoke with Clarissa, healthcare educator, about consult. Her concern is that the patient may be Type I rather than Type II due to particular home med. Will provide diabetes packet and she will follow up tomorrow morning.
[2023-12-03] MEDS: FERROUS SULFATE 325 MG TABLET DR PO ×2 (12:17→16:47)
[2023-12-03] MEDS: FUROSEMIDE INJ 40 MG/4 ML VIAL IV PUSH (12:17)
[2023-12-03 12:26] LABS: Glucose Point of Care 224 mg/dl (65-105)
--- NOTE | 2023-12-03 14:00 | PC.NURSE ---
Patient out department @ 1400 to Ultrasound of abdomen and lower extremities
[2023-12-03 16:22] LABS: Glucose Point of Care 137 mg/dl (65-105)
[2023-12-03] MEDS: ACETAMINOPHEN 325 MG TABLET 650 MG PO (17:30)
[2023-12-03] MEDS: predniSONE 40 MG, predniSONE 10 MG 50 MG PO (18:41)
[2023-12-03 21:13] LABS: Glucose Point of Care 200 mg/dl (65-105)
[2023-12-04] VITALS (18 sets, daily range): BP systolic 108–128; BP diastolic 77–90; PULSE 54–86; RESP 18–24; TEMP 35.7–36.4; O2SAT 95–100; BMI 27.1
[2023-12-04] MEDS: predniSONE 40 MG, predniSONE 10 MG 50 MG PO ×2 (00:25→07:13)
[2023-12-04 04:24] LABS: Hematocrit 34.7 % (37.0-47.0); Hemoglobin 11.2 g/dL (12.0-15.0); Immature Platelet Fraction Pct 9.3 % (0.9-11.2); Mean Corpuscular HGB Conc 32.3 g/dl (32-36); Mean Corpuscular Hemoglobin 29.9 pg (26-34); Mean Corpuscular Volume 92.5 fl (80-100); Mean Platelet Volume 11.8 fl (7.4-10.4); Red Blood Count 3.75 M/mm3 (4.2-5.4); Red Cell Distribution Width 16.3 % (11.5-14.5); White Blood Count 8.3 K/mm3 (4.5-10.0)
[2023-12-04 04:40] LABS: Platelet Count Result 54 k/mm3 (150-375)
[2023-12-04 04:45] LABS: Alanine Aminotransferase 46 U/L (6-35); Albumin Level 3.3 g/dL (3.5-5.1); Alkaline Phosphatase 71 U/L (38-126); Anion Gap 10 mmol/L (4-12); Aspartate Amino Transferase 22 U/L (14-36); Bilirubin,Total 1.2 mg/dL (0.2-1.3); Blood Urea Nitrogen 56 mg/dL (7-17); Calcium 8.6 mg/dL (8.4-10.2); Carbon Dioxide 29 mmol/L (22-30); Chloride 95 mmol/L (98-107); Cholesterol 171 mg/dL (0-200); Estimated CRCL calculation 34 ml/min; Estimated Glomerular Filt Rate 41; Glucose 276 mg/dL (65-110); HDL Direct 56 mg/dL; Potassium 4.2 mmol/L (3.4-5.0); Sodium 134 mmol/L (137-145); Triglycerides 217 mg/dL (<150)
[2023-12-04 04:58] LABS: LDL Cholesterol Direct 80 mg/dL
[2023-12-04] MEDS: diphenhydrAMINE HCl INJ 50 MG/ML VIAL IV PUSH (07:13)
[2023-12-04] MEDS: LEVOTHYROXINE SODIUM 100 MCG TABLET PO (07:13)
[2023-12-04] MEDS: INSULIN ASPART (*BKC) 100 UNITS/ML SUB-Q ×3 (07:37→22:21)
[2023-12-04 08:13] LABS: Glucose Point of Care 238 mg/dl (65-105)
[2023-12-04] MEDS: METOPROLOL SUCCINATE EXT REL 50 MG TABCR 150 MG PO (08:24)
[2023-12-04] MEDS: oxyBUTYnin CHLORIDE XL 5 MG TAB.ER.24 BY MOUTH (08:24)
[2023-12-04] MEDS: calcitrioL 0.25 MCG CAPSULE PO (08:24)
[2023-12-04] MEDS: dilTIAZem HCL CD 180 MG CAP.24HR 360 MG PO (08:24)
[2023-12-04] MEDS: FAMOTIDINE 20 MG TABLET 40 MG PO (08:24)
[2023-12-04] MEDS: CYANOCOBALAMIN 500 MCG TABLET PO (08:24)
[2023-12-04] MEDS: allopurinoL 300 MG TABLET PO (08:24)
[2023-12-04] MEDS: LORATADINE 10 MG TABLET PO (08:24)
[2023-12-04] MEDS: FLUTICASONE PROPIONATE 0.05% NA SPR 16 GM BTL (*BKC) 1 SPRAY NASAL (08:25)
--- NOTE | 2023-12-04 09:24 | PM.PNCARD ---
Progress Note: A&P Assessment and Plan (1) Acute exacerbation of CHF (congestive heart failure): Code(s): I50.9 - Heart failure, unspecified Status: Acute Assessment and Plan: Looks euvolemic, no further diuresis recommended at this time. Avoid dehydration, hypotension, etc. given HOCM. Echo ordered and pending. (2) Hypertrophic obstructive cardiomyopathy: Code(s): I42.1 - Obstructive hypertrophic cardiomyopathy Status: Acute Assessment and Plan: Continue Diltiazem, Metoprolol. Echocardiogram ordered and pending. (3) Elevated troponin: Code(s): R79.89 - Other specified abnormal findings of blood chemistry Status: Acute Assessment and Plan: Mildly elevated. Likely due to volume overload state rather than an acute coronary syndrome. (4) Descending thoracic aortic aneurysm: Code(s): I71.23 - Aneurysm of the descending thoracic aorta, without rupture Status: Acute Assessment and Plan: Needs to see Vascular Surgery. Will have our office place a referral to Vascular Surgery. (5) New onset type 2 diabetes mellitus: Code(s): E11.9 - Type 2 diabetes mellitus without complications Status: Acute Assessment and Plan: Management as per primary team. (6) Essential (primary) hypertension: Code(s): I10 - Essential (primary) hypertension Status: Acute Assessment and Plan: Continue Metoprolol and Diltiazem. (7) Thrombocytopenia: Code(s): D69.6 - Thrombocytopenia, unspecified Status: Acute Assessment and Plan: Hematology consulted, possibly due to Keytruda. (8) Facial edema: Code(s): R60.0 - Localized edema Status: Acute Assessment and Plan: Facial swelling and port-a-cath in place, CTA to evaluate for SVC syndrome negative. Plan She is stable from a cardiac perspective and from my point of view could be discharged. Cardiology will sign off. Please call with questions. Subjective Date/time seen: 12/04/23 09:24 Interval history: Cardiology follow up for CHF Date of service 12/04/2023: Feeling well this morning and has no complaints. Review of Systems Review of Systems: All systems reviewed & are unremarkable except as noted in HPI and below (HPI) Exam Const: General: comfortable and no acute distress HENMT: Mouth: Yes moist mucous membranes Eyes: General: appearance normal, both eyes and all related structures Sclera: sclerae normal Resp: Effort & Inspection: normal respiratory effort Auscultation: clear to auscultation bilaterally Cardio: Rate: regular rate Rhythm: regular rhythm Heart sounds: Murmur heart sound present systolic Other: no edema Skin: General skin exam: normal color Neuro: Speech: normal speech Psych: Mental Status: mental status grossly normal Affect: normal affect Objective Data Vital Signs Vital Signs: Vital Signs - 24 hr 12/03/23 10:00 12/03/23 12:00 12/03/23 12:00 Temperature 36.8 C Pulse Rate 90 89 103 H Respiratory Rate 28 H Blood Pressure 145/91 H Pulse Oximetry 99 Oxygen Delivery Fraction of Inspired Oxygen 12/03/23 12:00 12/03/23 14:00 12/03/23 16:00 Temperature 36.9 C Pulse Rate 94 78 Respiratory Rate 16 Blood Pressure 131/93 H Pulse Oximetry 97 Oxygen Delivery Room Air Fraction of Inspired Oxygen 12/03/23 16:00 12/03/23 16:00 12/03/23 18:00 Temperature Pulse Rate 83 80 Respiratory Rate Blood Pressure Pulse Oximetry Oxygen Delivery Room Air Fraction of Inspired Oxygen 12/03/23 20:00 12/03/23 20:00 12/03/23 22:45 Temperature 36.4 C Pulse Rate 82 82 71 Respiratory Rate 18 18 28 H Blood Pressure 130/96 H Pulse Oximetry 98 98 96 Oxygen Delivery Room Air CPAP Fraction of Inspired Oxygen 21 12/03/23 23:45 12/04/23 00:00 12/04/23 02:30 Temperature 36.4 C Pulse Rate 82 73 74 Respiratory Rate 18 19 Blood Pressur
--- NOTE | 2023-12-04 10:49 | P.PNIM_ITS ---
Progress Note: A&P Assessment and Plan (1) Facial edema: Code(s): R60.0 - Localized edema Status: Acute (2) Elevated troponin: Code(s): R79.89 - Other specified abnormal findings of blood chemistry Status: Acute (3) Diabetes mellitus, new onset: Code(s): E11.9 - Type 2 diabetes mellitus without complications Status: Acute (4) Essential (primary) hypertension: Code(s): I10 - Essential (primary) hypertension Status: Acute (5) Thrombocytopenia: Code(s): D69.6 - Thrombocytopenia, unspecified Status: Acute (6) Chronic kidney disease, stage 3: Code(s): N18.30 - Chronic kidney disease, stage 3 unspecified Status: Acute (7) Chronic anemia: Code(s): D64.9 - Anemia, unspecified Status: Acute (8) Acute exacerbation of CHF (congestive heart failure): Code(s): I50.9 - Heart failure, unspecified Status: Acute (9) Endometrial adenocarcinoma: Code(s): C54.1 - Malignant neoplasm of endometrium Status: Acute (10) Descending thoracic aortic aneurysm: Code(s): I71.23 - Aneurysm of the descending thoracic aorta, without rupture Status: Acute (11) Obesity: Code(s): E66.9 - Obesity, unspecified Status: Acute (12) MICHAEL on CPAP: Code(s): G47.33 - Obstructive sleep apnea (adult) (pediatric); Z99.89 - Dependence on other enabling machines and devices Status: Acute Plan Generalized Edema/Facial Edema * Progressively worse over two weeks * possibly medication induced holding Keytruda * Was given IV lasix in the ED * Gentle Diuresis * Port-a-cath Present * BNP >46334 * CTA to R/O SVCS was normal * Venous doppler was normal * Echo done, results pending Acute on chronic diastolic heart failure/cardiomyopathy * Concern for worsening heart function due to cancer treatment * BNP 12,500 * cardiology consulted * s/p IV lasix * previous echocardiogram results:Diastolic dysfunction LVEF 80% * echocardiogram pending * EKG: LV hypertrophy SR * chest x-ray: Aneurysm dilation of the aorta, cardiomegaly, atelectasis * Lipid panel, TSH, liver function test. * Optimize Cameron inhibitors, beta-blockers, ARNI * Daily weight. * Optimize blood pressure less than 130/80. * Fall risk assessment. Thrombocytopenia/endometrial adeno carcinoma/chronic anemia * Hematology/Oncology consult * Holding Keytruda due to adverse effects * Newly diagnosed with hypothyroidism and diabetes likely secondary to medication * iron studies, b12, ITP antibody as well as abd ultrasound to rule our liver or spleen sequestration. Gallbladder sludge and cysts in the liver and right kidney, noted slight upper abdominal aorta dilation * Transfuse plt if <20 or if actively bleeding/symptomatic Hypothyroidism * New onset likely secondary to Keytruda currently on home * Hematology managing level thyroxine * TSH/T4 New onset diabetes * Hyperglycemic POA, up to 400 today * 5 units of IV insulin now, & start lantus 10, lispro 3 TID, adjust as needed * could be Type 1 induced by Keytruda medication. Plan basal bolus insulin and follow up * Check c-peptid and insulin level in AM. Follow up with PCP vs endocrinology * Accu-Cheks a.c. HS * sliding scale insulin * Hemoglobin A1c 8.1 * lipid panel pending * Diabetic diet * dietitian consulted * inclusion paraeducator saw her, instructed in using insulin. Planning basal/bolus for discharge * Optimize Cameron inhibitors and statins. * Watch for hypoglyce
--- NOTE | 2023-12-04 10:49 | PM.IMPN ---
Progress Note: A&P Assessment and Plan (1) Facial edema: Code(s): R60.0 - Localized edema Status: Acute (2) Elevated troponin: Code(s): R79.89 - Other specified abnormal findings of blood chemistry Status: Acute (3) Diabetes mellitus, new onset: Code(s): E11.9 - Type 2 diabetes mellitus without complications Status: Acute (4) Essential (primary) hypertension: Code(s): I10 - Essential (primary) hypertension Status: Acute (5) Thrombocytopenia: Code(s): D69.6 - Thrombocytopenia, unspecified Status: Acute (6) Chronic kidney disease, stage 3: Code(s): N18.30 - Chronic kidney disease, stage 3 unspecified Status: Acute (7) Chronic anemia: Code(s): D64.9 - Anemia, unspecified Status: Acute (8) Acute exacerbation of CHF (congestive heart failure): Code(s): I50.9 - Heart failure, unspecified Status: Acute (9) Endometrial adenocarcinoma: Code(s): C54.1 - Malignant neoplasm of endometrium Status: Acute (10) Descending thoracic aortic aneurysm: Code(s): I71.23 - Aneurysm of the descending thoracic aorta, without rupture Status: Acute (11) Obesity: Code(s): E66.9 - Obesity, unspecified Status: Acute (12) MICHAEL on CPAP: Code(s): G47.33 - Obstructive sleep apnea (adult) (pediatric); Z99.89 - Dependence on other enabling machines and devices Status: Acute Plan Generalized Edema/Facial Edema Progressively worse over two weeks possibly medication induced holding Keytruda Was given IV lasix in the ED Gentle Diuresis Port-a-cath Present BNP >59268 CTA to R/O SVCS was normal Venous doppler was normal Echo done, results pending Acute on chronic diastolic heart failure/cardiomyopathy Concern for worsening heart function due to cancer treatment BNP 12,500 cardiology consulted s/p IV lasix previous echocardiogram results:Diastolic dysfunction LVEF 80% echocardiogram pending EKG: LV hypertrophy SR chest x-ray: Aneurysm dilation of the aorta, cardiomegaly, atelectasis Lipid panel, TSH, liver function test. Optimize Cameron inhibitors, beta-blockers, ARNI Daily weight. Optimize blood pressure less than 130/80. Fall risk assessment. Thrombocytopenia/endometrial adeno carcinoma/chronic anemia Hematology/Oncology consult Holding Keytruda due to adverse effects Newly diagnosed with hypothyroidism and diabetes likely secondary to medication iron studies, b12, ITP antibody as well as abd ultrasound to rule our liver or spleen sequestration. Gallbladder sludge and cysts in the liver and right kidney, noted slight upper abdominal aorta dilation Transfuse plt if <20 or if actively bleeding/symptomatic Hypothyroidism New onset likely secondary to Keytruda currently on home Hematology managing level thyroxine TSH/T4 New onset diabetes Hyperglycemic POA, up to 400 today 5 units of IV insulin now, & start lantus 10, lispro 3 TID, adjust as needed could be Type 1 induced by Keytruda medication. Plan basal bolus insulin and follow up Check c-peptid and insulin level in AM. Follow up with PCP vs endocrinology Accu-Cheks a.c. HS sliding scale insulin Hemoglobin A1c 8.1 lipid panel pending Diabetic diet dietitian consulted nutrition educator saw her, instructed in using insulin. Planning basal/bolus for discharge Optimize Cameron inhibitors and statins. Watch for hypoglycemia/hypoglycemic protocol ordered Elevated troponins Possibly secondary to ischemic demand Continue with serial troponin downtrend Cardiology consult Echocardiogram pending EKG showing sinus rhythm with LV hypertrophy Continuous cardiac monitoring: short runs of NSVT NSTV Short runs of NSVT Obesity encourage increased on physical activity and lifestyle modifications encourage outpatient weight loss clinic BMI . consult to dietitian MICHAEL At home set
[2023-12-04 12:45] LABS: Glucose Point of Care 273 mg/dl (65-105)
[2023-12-04] MEDS: FERROUS SULFATE 325 MG TABLET DR PO ×2 (13:20→17:54)
[2023-12-04 16:36] LABS: Glucose Point of Care 435 mg/dl (65-105)
[2023-12-04] MEDS: INSULIN GLARGINE (*BKC) 100 UNITS/ML 10 UNITS SUB-Q (17:54)
[2023-12-04] MEDS: INSULIN ASPART (*BKC) 100 UNITS/ML 10 UNITS SUB-Q (18:07)
[2023-12-04 21:15] LABS: Glucose Point of Care 388 mg/dl (65-105)
[2023-12-05] VITALS (11 sets, daily range): BP systolic 90–135; BP diastolic 69–96; PULSE 49–80; RESP 16–23; TEMP 36–37.1; O2SAT 96–100
[2023-12-05 05:17] LABS: Hematocrit 34.7 % (37.0-47.0); Immature Platelet Fraction Pct 11.9 % (0.9-11.2); Mean Corpuscular HGB Conc 31.7 g/dl (32-36); Mean Corpuscular Volume 94.6 fl (80-100); Mean Platelet Volume 13.7 fl (7.4-10.4); Platelet Count Result 52 k/mm3 (150-375); Red Blood Count 3.67 M/mm3 (4.2-5.4); Red Cell Distribution Width 16.2 % (11.5-14.5); White Blood Count 10.4 K/mm3 (4.5-10.0)
[2023-12-05 05:29] LABS: Alanine Aminotransferase 45 U/L (6-35); Albumin Level 3.2 g/dL (3.5-5.1); Alkaline Phosphatase 76 U/L (38-126); Anion Gap 7 mmol/L (4-12); Aspartate Amino Transferase 20 U/L (14-36); Bilirubin,Total 0.7 mg/dL (0.2-1.3); Blood Urea Nitrogen 72 mg/dL (7-17); Calcium 8.9 mg/dL (8.4-10.2); Carbon Dioxide 33 mmol/L (22-30); Chloride 96 mmol/L (98-107); Estimated CRCL calculation 28 ml/min; Estimated Glomerular Filt Rate 34; Glucose 237 mg/dL (65-110); Potassium 4.2 mmol/L (3.4-5.0); Sodium 136 mmol/L (137-145)
[2023-12-05 05:41] LABS: Troponin I 0.167 ng/mL (0.000-0.034)
[2023-12-05] MEDS: LEVOTHYROXINE SODIUM 100 MCG TABLET PO (06:13)
[2023-12-05] MEDS: LORATADINE 10 MG TABLET PO (08:44)
[2023-12-05] MEDS: dilTIAZem HCL CD 180 MG CAP.24HR 360 MG PO (08:44)
[2023-12-05] MEDS: FAMOTIDINE 20 MG TABLET 40 MG PO (08:45)
[2023-12-05] MEDS: oxyBUTYnin CHLORIDE XL 5 MG TAB.ER.24 BY MOUTH (08:45)
[2023-12-05] MEDS: calcitrioL 0.25 MCG CAPSULE PO (08:45)
[2023-12-05] MEDS: allopurinoL 300 MG TABLET PO (08:45)
[2023-12-05] MEDS: CYANOCOBALAMIN 500 MCG TABLET PO (08:45)
[2023-12-05] MEDS: FLUTICASONE PROPIONATE 0.05% NA SPR 16 GM BTL (*BKC) 1 SPRAY NASAL (08:46)
[2023-12-05] MEDS: METOPROLOL SUCCINATE EXT REL 50 MG TABCR 150 MG PO (08:46)
[2023-12-05] MEDS: INSULIN ASPART (*BKC) 100 UNITS/ML SUB-Q ×4 (08:48→12:56)
--- NOTE | 2023-12-05 11:16 | P.DS_ITS ---
DS: Admitting Diagnosis Discharge Date 12/05/2023 Admitting Diagnosis Anasarca/SOB DS: Discharge Diagnosis Discharge Diagnosis (1) Facial edema: Code(s): R60.0 - Localized edema Status: Acute (2) Elevated troponin: Code(s): R79.89 - Other specified abnormal findings of blood chemistry Status: Acute (3) Diabetes mellitus, new onset: Code(s): E11.9 - Type 2 diabetes mellitus without complications Status: Acute (4) Essential (primary) hypertension: Code(s): I10 - Essential (primary) hypertension Status: Acute (5) Thrombocytopenia: Code(s): D69.6 - Thrombocytopenia, unspecified Status: Acute (6) Chronic kidney disease, stage 3: Code(s): N18.30 - Chronic kidney disease, stage 3 unspecified Status: Acute (7) Chronic anemia: Code(s): D64.9 - Anemia, unspecified Status: Acute (8) Acute exacerbation of CHF (congestive heart failure): Code(s): I50.9 - Heart failure, unspecified Status: Acute (9) Endometrial adenocarcinoma: Code(s): C54.1 - Malignant neoplasm of endometrium Status: Acute (10) Descending thoracic aortic aneurysm: Code(s): I71.23 - Aneurysm of the descending thoracic aorta, without rupture Status: Acute (11) Obesity: Code(s): E66.9 - Obesity, unspecified Status: Acute (12) MICHAEL on CPAP: Code(s): G47.33 - Obstructive sleep apnea (adult) (pediatric); Z99.89 - Dependence on other enabling machines and devices Status: Acute Plan Generalized Edema/Facial Edema * Progressively worse over two weeks * possibly medication induced holding Keytruda * Was given IV lasix in the ED * Gentle Diuresis * Port-a-cath Present * BNP >73323 * CTA to R/O SVCS was normal * Venous doppler was normal * Echo done, results pending Acute on chronic diastolic heart failure/cardiomyopathy * Concern for worsening heart function due to cancer treatment * BNP 12,500 * cardiology consulted * s/p IV lasix * previous echocardiogram results:Diastolic dysfunction LVEF 80% * echocardiogram pending * EKG: LV hypertrophy SR * chest x-ray: Aneurysm dilation of the aorta, cardiomegaly, atelectasis * Lipid panel, TSH, liver function test. * Optimize Cameron inhibitors, beta-blockers, ARNI * Daily weight. * Optimize blood pressure less than 130/80. * Fall risk assessment. Thrombocytopenia/endometrial adeno carcinoma/chronic anemia * Hematology/Oncology consult * Holding Keytruda due to adverse effects * Newly diagnosed with hypothyroidism and diabetes likely secondary to medication * iron studies, b12, ITP antibody as well as abd ultrasound to rule our liver or spleen sequestration. Gallbladder sludge and cysts in the liver and right kidney, noted slight upper abdominal aorta dilation * Transfuse plt if <20 or if actively bleeding/symptomatic Hypothyroidism * New onset likely secondary to Keytruda currently on home * Hematology managing level thyroxine * TSH/T4 New onset diabetes * Hyperglycemic POA, up to 400 today * 5 units of IV insulin now, & start lantus 10, lispro 3 TID, adjust as needed * could be Type 1 induced by Keytruda medication. Plan basal bolus insulin and follow up * Check c-peptid and insulin level in AM. Follow up with PCP vs endocrinology * Accu-Cheks a.c. HS * sliding scale insulin * Hemoglobin A1c 8.1 * lipid panel pending * Diabetic diet * dietitian consulted * strike warfare/missile systems officer saw her, instructed i
--- NOTE | 2023-12-05 11:16 | PM.DS ---
DS: Admitting Diagnosis Discharge Date 12/05/2023 Admitting Diagnosis Anasarca/SOB DS: Discharge Diagnosis Discharge Diagnosis (1) Facial edema: Code(s): R60.0 - Localized edema Status: Acute (2) Elevated troponin: Code(s): R79.89 - Other specified abnormal findings of blood chemistry Status: Acute (3) Diabetes mellitus, new onset: Code(s): E11.9 - Type 2 diabetes mellitus without complications Status: Acute (4) Essential (primary) hypertension: Code(s): I10 - Essential (primary) hypertension Status: Acute (5) Thrombocytopenia: Code(s): D69.6 - Thrombocytopenia, unspecified Status: Acute (6) Chronic kidney disease, stage 3: Code(s): N18.30 - Chronic kidney disease, stage 3 unspecified Status: Acute (7) Chronic anemia: Code(s): D64.9 - Anemia, unspecified Status: Acute (8) Acute exacerbation of CHF (congestive heart failure): Code(s): I50.9 - Heart failure, unspecified Status: Acute (9) Endometrial adenocarcinoma: Code(s): C54.1 - Malignant neoplasm of endometrium Status: Acute (10) Descending thoracic aortic aneurysm: Code(s): I71.23 - Aneurysm of the descending thoracic aorta, without rupture Status: Acute (11) Obesity: Code(s): E66.9 - Obesity, unspecified Status: Acute (12) MICHAEL on CPAP: Code(s): G47.33 - Obstructive sleep apnea (adult) (pediatric); Z99.89 - Dependence on other enabling machines and devices Status: Acute Plan Generalized Edema/Facial Edema Progressively worse over two weeks possibly medication induced holding Keytruda Was given IV lasix in the ED Gentle Diuresis Port-a-cath Present BNP >79699 CTA to R/O SVCS was normal Venous doppler was normal Echo done, results pending Acute on chronic diastolic heart failure/cardiomyopathy Concern for worsening heart function due to cancer treatment BNP 12,500 cardiology consulted s/p IV lasix previous echocardiogram results:Diastolic dysfunction LVEF 80% echocardiogram pending EKG: LV hypertrophy SR chest x-ray: Aneurysm dilation of the aorta, cardiomegaly, atelectasis Lipid panel, TSH, liver function test. Optimize Cameron inhibitors, beta-blockers, ARNI Daily weight. Optimize blood pressure less than 130/80. Fall risk assessment. Thrombocytopenia/endometrial adeno carcinoma/chronic anemia Hematology/Oncology consult Holding Keytruda due to adverse effects Newly diagnosed with hypothyroidism and diabetes likely secondary to medication iron studies, b12, ITP antibody as well as abd ultrasound to rule our liver or spleen sequestration. Gallbladder sludge and cysts in the liver and right kidney, noted slight upper abdominal aorta dilation Transfuse plt if <20 or if actively bleeding/symptomatic Hypothyroidism New onset likely secondary to Keytruda currently on home Hematology managing level thyroxine TSH/T4 New onset diabetes Hyperglycemic POA, up to 400 today 5 units of IV insulin now, & start lantus 10, lispro 3 TID, adjust as needed could be Type 1 induced by Keytruda medication. Plan basal bolus insulin and follow up Check c-peptid and insulin level in AM. Follow up with PCP vs endocrinology Accu-Cheks a.c. HS sliding scale insulin Hemoglobin A1c 8.1 lipid panel pending Diabetic diet dietitian consulted art educator saw her, instructed in using insulin. Planning basal/bolus for discharge Optimize Cameron inhibitors and statins. Watch for hypoglycemia/hypoglycemic protocol ordered Elevated troponins Possibly secondary to ischemic demand Continue with serial troponin downtrend Cardiology consult Echocardiogram pending EKG showing sinus rhythm with LV hypertrophy Continuous cardiac monitoring: short runs of NSVT NSTV Short runs of NSVT Obesity encourage increased on physical activity and lifestyle modifications
[2023-12-05 11:32] LABS: Glucose Point of Care 201 mg/dl (65-105)
[2023-12-05] MEDS: FERROUS SULFATE 325 MG TABLET DR PO (12:55)
[2023-12-07 08:14] LABS: Methylmalonic Acid 230 nmol/L (69-390)
[2023-12-07 15:33] LABS: Insulin Level Total 24.6 uIU/mL
[2023-12-08 03:54] LABS: C-Peptide 6.31 ng/mL (0.80-3.85)
[2023-12-09 19:09] LABS: Platelet Antibody, Direct NEGATIVE (NEGATIVE)
[2023-12-10 13:03] LABS: Soluble Transferrin Receptor 1.25 mg/L (0.76-1.76)
== END 2023-12-05 13:43 | disposition home or self-care (01) ==
LOC: ANHED 17:24 → ANHIMU 19:41
PROVIDERS: Nurse Practitioner Acute Care; Nurse Practitioner Family; Physician Assistant; Admitting Provider General Practice; Emergency Provider Emergency Medicine; PCP Family Medicine; Visit Provider Nurse Practitioner Family
DX: I13.0 Hypertensive heart and chronic kidney disease with heart failure and stage 1 through stage 4 chronic kidney disease, or unspecified chronic kidney disease (principal); R60.1 Generalized edema; I50.33 Acute on chronic diastolic (congestive) heart failure; E11.65 Type 2 diabetes mellitus with hyperglycemia; E11.22 Type 2 diabetes mellitus with diabetic chronic kidney disease; N18.30 Chronic kidney disease, stage 3 unspecified; D69.6 Thrombocytopenia, unspecified; R79.89 Other specified abnormal findings of blood chemistry; R06.02 Shortness of breath; C54.1 Malignant neoplasm of endometrium; I47.10 Supraventricular tachycardia, unspecified; I42.1 Obstructive hypertrophic cardiomyopathy; I71.23 Aneurysm of the descending thoracic aorta, without rupture; D50.9 Iron deficiency anemia, unspecified; I27.20 Pulmonary hypertension, unspecified; E03.9 Hypothyroidism, unspecified; E21.3 Hyperparathyroidism, unspecified; G47.33 Obstructive sleep apnea (adult) (pediatric); Z79.891 Long term (current) use of opiate analgesic; Z79.620 Long term (current) use of immunosuppressive biologic; Z99.89 Dependence on other enabling machines and devices; E66.9 Obesity, unspecified; Z68.27 Body mass index [BMI] 27.0-27.9, adult
CPT/HCPCS: 36415; 71046; 71275; 76700; 80053; 80061; 81001; 82607; 82728; 82746; 82948; 83036; 83525; 83540; 83550; 83735; 83880; 83921; 84238; 84439; 84443; 84480; 84484; 84681; 85025; 85027; 85055; 85610; 86023; 87086; 87088; 93005; 93306; 93970; 94002; 96374; 96375; 96376; 99285; A9270; G0378; J1200; J1815; J1940; J7512; Q9967

== ENCOUNTER 2023-12-14 12:13 | Outpatient (CLI) | payer MEDICARE, SELFPAY ==
--- NOTE | ~2023-12-14 | XR_ITS ---
EXAMINATION: XR sacroiliac joints min 3V DATE: 12/14/2023 12:37 INDICATION: Joint disorder, unspecified. TECHNIQUE: 3 views of the sacroiliac joints were obtained. COMPARISON: CT 11/06/2023 FINDINGS: Bone alignment is normal. No fracture. There is mild osteoarthritis of the sacroiliac joint s. IMPRESSION: 1. Mild osteoarthritis of the sacroiliac joints. No evidence of inflammatory arthropathy. Reviewed, dictated and finalized at location A. IMPRESSION: 1. Mild osteoarthritis of the sacroiliac joints. No evidence of inflammatory ar thropathy.
--- NOTE | ~2023-12-14 | US_ITS ---
EXAMINATION: US thyroid DATE: 12/14/2023 12:33 INDICATION: Goiter. Neck swelling. TECHNIQUE: Multiple ultrasound images of the thyroid were obtained. COMPARISON: Chest CT 12/04/2023 FINDINGS: The right thyroid lobe measures 3.8 x 1.1 x 1.1 cm. The left thyroid lobe measures 2.8 x 1.1 x 1.1 c m. The thyroid is heterogeneous and hypoechoic. Vascularity is normal. No discrete nodule. IMPRESSION: 1. Heterogeneous thyroid, which may be seen with chronic lymphocytic (Kyler) thyroiditis. Reviewed, dictated and finalized at location A. IMPRESSION: 1. Heterogeneous thyroid, which may be seen with chronic lymphocytic (Kyler ) thyroiditis.
== END 2023-12-14 12:14 ==
LOC: MICIMG 12:14
PROVIDERS: PCP Family Medicine; Visit Provider Family Medicine
DX: M46.1 Sacroiliitis, not elsewhere classified (principal); E01.0 Iodine-deficiency related diffuse (endemic) goiter
CPT/HCPCS: 72202; 76536

== ENCOUNTER 2023-12-15 17:24 | Emergency (ER) | payer MEDICARE, SELFPAY ==
--- NOTE | ~2023-12-15 | XR_ITS ---
Portable chest x-ray Comparison: 12/15/2023 Clinical History: Shortness of breath Findings: Right-sided Mediport unchanged. Minimal haziness in the right upper lobe noted. Probable l inear scarring or atelectasis left midlung. Cardiomediastinal silhouette is stable. Marked prominence of aortic knob is stable from prior exam. Bones and soft tissues are unremarkable. Impression: Minimal haziness right upper lobe, nonspecific. Correlate for possible subtle pneumonia. Stable marked prominence of the aortic knob and descending thoracic aorta, compatible with aneurysm. Please see prior chest CT dated 12/04/2023 for further details. Stable Mediport. Reviewed, dictated and finalized at location M. Impression: Minimal haziness right upper lobe, nonspecific. Correlate for possible subtle p neumonia. Stable marked prominence of the aortic knob and descending thoracic aorta, comp atible with aneurysm. Please see prior chest CT dated 12/04/2023 for further det ails. Stable Mediport.
--- NOTE | ~2023-12-15 | XR_ITS ---
EXAMINATION: XR chest 1V portable DATE: 12/15/2023 21:15 INDICATION: Dyspnea TECHNIQUE: frontal view of the chest was obtained. COMPARISON: Chest radiograph dated 12/02/[address] dated 12/04/2023 FINDINGS: Right subclavian central venous port catheter with distal tip at the cephalad superior vena cava. Chr onic linear discoid atelectasis/scarring at the right lower lung zone. No new airspace opacities, pul monary edema, pleural effusion or pneumothorax. Cardiomegaly. No evident change in a large aneurysm o f the descending thoracic aorta. IMPRESSION: 1. Unchanged discoid atelectasis/scarring at the right lower lung zone. 2. Unchanged large aneurysm of the descending thoracic aorta. Reviewed, dictated and finalized at location A.
--- NOTE | ~2023-12-15 | NM_ITS ---
EXAMINATION: NM lung vent and perfusion DATE: 12/15/2023 22:19 INDICATION: Elevated d-dimer. Tachycardia. Dyspnea. TECHNIQUE: 8.5 mCi xenon-133 by inhalation and 5.3 mCi Tc-99m MAA by intravenous route. Scintigraphi c images of the chest were obtained. COMPARISON: Chest radiograph dated 12/15/2023 FINDINGS: There is homogeneous radiotracer activity throughout the lungs on the single breath ventilation seque nce. There is a small wedge-shaped perfusion defect at the right middle lobe corresponding to a band of discoid atelectasis on the radiograph. There is a small photopenic defect projecting over the post erior right lung on the posterior and RPO projections but with peripheral stripe sign. Additional sma ll perfusion defect at the posterior left upper lobe. Cardiomegaly. There is also a photopenic defect at the medial right upper lung corresponding to the large descending thoracic aortic aneurysm. IMPRESSION: 1. Low probability for pulmonary embolism. Reviewed, dictated and finalized at location A.
--- NOTE | ~2023-12-15 | CT_ITS ---
EXAMINATION: CT abdomen pelvis wo con DATE: 12/15/2023 22:07 INDICATION: Hematochezia TECHNIQUE: Computed tomography (CT) of the abdomen and pelvis was performed without intravenous contr ast. Automated exposure control and iterative reconstruction technique were employed. The dose-length product was 795.14 mGy-cm. COMPARISON: 11/06/2023 FINDINGS: Mild compressive atelectasis at the medial left lower lobe along side the aneurysmal descending thora cic aorta the visualized portion of which measures up to 5.8 cm in maximal diameter. Cardiomegaly. Ao rtic valve calcification. No pericardial effusion. Couple unchanged small hepatic cysts measuring up to 1.3 cm. Gallbladder, spleen, pancreas, bilateral adrenal glands and left kidney are normal. 9 mm m acroscopic fat attenuation right adrenal myelolipoma. Moderate diverticulosis along the sigmoid colon without adjacent inflammatory stranding to suggest diverticulitis. No bowel obstruction. Bladder is normal. The uterus is not identified and has likely been surgically resected. No free intraperitoneal gas or fluid. No pathologically enlarged abdominal or pelvic lymphadenopathy. Mild lumbar levocurvat ure with severe spondylosis. IMPRESSION: 1. No acute intra-abdominal/pelvic process. 2. Large fusiform aneurysm of the descending thoracic aorta the visualized caudal portion which measu res up to 5.8 cm in maximal diameter. 3. Sigmoid diverticulosis. Reviewed, dictated and finalized at location A. IMPRESSION: 1. No acute intra-abdominal/pelvic process. 2. Large fusiform aneurysm of the descending thoracic aorta the visualized caud al portion which measures up to 5.8 cm in maximal diameter. 3. Sigmoid diverticulosis.
[2023-12-15 17:26] VITALS: BP 111/83; PULSE 120; RESP 16; TEMP 36.3; O2SAT 100
[2023-12-15 19:31] VITALS: BP 122/100; PULSE 110; RESP 27; O2SAT 97
--- NOTE | 2023-12-15 20:07 | ED.GENADULT ---
HPI - General Adult General Chief complaint: GI Bleed <Lisa Garza PA-C - Last Filed: 12/16/23 02:54> Stated complaint: blood in stool <Lisa Garza PA-C - Last Filed: 12/16/23 02:54> Time Seen by Provider: 12/15/23 19:43 <Lisa Garza PA-C - Last Filed: 12/16/23 02:54> History of Present Illness HPI narrative: 73-year-old female with history of hypertrophic obstructive cardiomyopathy, hypertension, descending thoracic aortic aneurysm, MICHAEL, uterine cancer and hypothyroidism presents to the emergency department for generalized weakness, shortness of breath and blood in the toilet intermittently for approximately 1 week. Patient also states that she has intermittent swelling to her neck that occurs after she takes her levothyroxine. States she was recently prescribed her levothyroxine around July 16 and since then notices that she gets swelling her neck after she takes her medication which resolves later in the evenings. She reports shortness of breath but is unable to identify any aggravating or alleviating factors. She denies chest pain or abdominal pain, N/V/D, fever, cough. She is endorsing some congestion. She was recently admitted to our hospital on 12/02/2023 for CHF exacerbation. She was discharged on 12/05/2023 after IV diuresis. She did have elevated troponin and was cleared by Cardiology and was felt to be due to ischemic demand. She had a CTA performed due to concerns for SVC which was negative. She was advised to discontinue her Keytruda due to concerns for side effects. She was started on metformin for new onset diabetes. Patient states she started the metformin is when she started noticing intermittent bright red blood in the toilet. She admits that she is unsure which orifice the blood is exiting but states that is only present when she urinates and defecates. she is not anticoagulated. States she had a colonoscopy approximately 5 years ago which showed polyps. Echocardiogram on 12/02 shows left EF normal 65%, there is severely increased left ventricular wall thickness, right ventricular chamber dimension is decreased. <Lias Garza PA-C - Last Filed: 12/16/23 02:54> Related Data Home medications: Home Medications Medication Instructions Recorded Confirmed fluticasone propionate 50 1 spray intranasal DAILY 09/02/21 12/02/23 mcg/actuation nasal spray,suspension polyethylene glycol 3350 17 gram 17 g PO DAILY PRN Constipation 11/12/22 12/02/23 oral powder packet (Miralax) mecobalamin (vitamin B12) 500 mcg 500 mcg PO DAILY 03/24/23 12/02/23 chewable tablet potassium chloride 10 mEq 10 meq PO DAILY 03/24/23 12/02/23 tablet,extended release levothyroxine 100 mcg capsule 100 mcg PO DAILY 08/21/23 12/02/23 <Lisa Garza PA-C - Last Filed: 12/16/23 02:54> Allergies/adverse reactions: Allergies Allergy/AdvReac Type Severity Reaction Status Date / Time iodine contrast Allergy Mild Itching Uncoded 12/15/23 19:50 <Lisa Garza PA-C - Last Filed: 12/16/23 02:54> Review of Systems Review of Systems: All systems reviewed & are unremarkable except as noted in HPI and below <Lisa Garza PA-C - Last Filed: 12/16/23 02:54> PMF Past Medical History Medical History: Medical History Cardiomyopathy Chronic anemia Chronic kidney disease, stage 3 Chronic rhinitis Descending thoracic aortic aneurysm Endometrial adenocarcinoma Essential (primary) hypertension Hyperparathyroidism Hypertrophic obstructive cardiomyopathy MICHAEL on CPAP Pulmonary hypertension Rhinitis Subaortic stenosis <Lisa Garza PA-C - Last Filed: 12/16/23 02:54> Surgical History Surgical History: Surgical History History of cataract extraction 09/11/2010 History of salpingectomy Right side 09/12/2013 <Lisa Espinoza
--- NOTE | 2023-12-15 20:09 | ECG_ITS ---
Test Date: 2023-12-15 20:37:19 Measurements Intervals [place] Rate: 110 P: 21 MD: 144 QRS: 11 QRSD: 93 T: 194 QT: 341 QTc: 462 Interpretive Statements SINUS TACHYCARDIA POSSIBLE LEFT ATRIAL ENLARGEMENT POSSIBLE RIGHT VENTRICULAR CONDUCTION DELAY LEFT VENTRICULAR HYPERTROPHY AND ST-T CHANGE ST-T WAVE ABNORMALITY IN ANTEROLATERAL LEADS- CONSIDER ISCHEMIA BASELINE ARTIFACT- I, II, III, AVR, AVL, AVF, V1-V2 ABNORMAL ECG Compared to ECG 12/02/2023 14:57:53 HEART RATE HAS INCREASED Electronically Signed On 12-16-2023 06:30:27 CDT by Rubin Carrizales D.O.
[2023-12-15 20:10] LABS: Basophils Percent Auto 0.2 % (0.2-1.2); Hematocrit 29.9 % (37.0-47.0); Hemoglobin 9.8 g/dL (12.0-15.0); Immature Granulocyte Absolute 0.49 K/mm3 (0.00-0.031); Immature Granulocyte Percent A 5.8 % (0-0.5); Immature Platelet Fraction Pct 8.6 % (0.9-11.2); Lymphocytes Absolute Auto 1.02 K/mm3 (0.9-3.2); Mean Corpuscular HGB Conc 32.8 g/dl (32-36); Mean Corpuscular Hemoglobin 30.2 pg (26-34); Mean Platelet Volume 12.7 fl (7.4-10.4); Monocytes Absolute Auto 0.2 K/mm3 (0.1-0.6); Monocytes Percent Auto 2.5 % (2.6-8.5); Neutrophils Absolute Auto 6.8 K/mm3 (1.3-6.7); Neutrophils Percent Auto 79.5 % (45.5-73.1); Nucleated Red Blood Cells Perc 1.3 % (0.0-0.2); Platelet Count Result 62 k/mm3 (150-375); Red Blood Count 3.25 M/mm3 (4.2-5.4); Red Cell Distribution Width 16.2 % (11.5-14.5); White Blood Count 8.5 K/mm3 (4.5-10.0)
[2023-12-15 20:19] LABS: INR 1.1; Prothrombin Time 14.5 Seconds (11.1-14.7)
[2023-12-15 20:20] LABS: Partial Thromboplastin Time 21.5 Seconds (22.3-36.8)
[2023-12-15 20:21] LABS: Alanine Aminotransferase 35 U/L (6-35); Albumin Level 3.3 g/dL (3.5-5.1); Alkaline Phosphatase 78 U/L (38-126); Anion Gap 13 mmol/L (4-12); Aspartate Amino Transferase 25 U/L (14-36); Bilirubin,Total 0.9 mg/dL (0.2-1.3); Blood Urea Nitrogen 71 mg/dL (7-17); Calcium 9.2 mg/dL (8.4-10.2); Carbon Dioxide 20 mmol/L (22-30); Chloride 106 mmol/L (98-107); Estimated CRCL calculation 24 ml/min; Estimated Glomerular Filt Rate 28; Glucose 177 mg/dL (65-110); Potassium 4.6 mmol/L (3.4-5.0); Sodium 139 mmol/L (137-145)
[2023-12-15 20:32] LABS: Magnesium 2.1 mg/dL (1.6-2.3)
[2023-12-15 20:38] LABS: Ovalocytes 1+; Platelet Estimate Decreased (Adequate); Schistocytes None Seen
[2023-12-15 20:41] LABS: D Dimer 3.09 ug/mL (<0.48)
[2023-12-15 20:56] LABS: NT Pro B Type Natriuretic Pept > 30000 pg/mL (19.9-100); Troponin I 0.189 ng/mL (0.000-0.034)
[2023-12-15 22:02] LABS: Influenza A QL RT-PCR Negative (Negative); Influenza B QL RT-PCR Negative (Negative); SARS-CoV-2 RNA PCR Negative (Negative)
[2023-12-15 22:15] LABS: Appearance Urine Clear (Clear); Bacteria Urine None Seen /hpf; Bilirubin Urine Negative (Negative); Blood Urine Negative (Negative); Color Urine Yellow (Yellow); Glucose Urine UA Negative (Negative); Ketones Urine Negative (Negative); Leukocyte Esterase Ur Negative LEU/UL (Negative); Need Manual Microscopic Reviewed; Nitrate Urine Negative (Negative); Protein Urine 1+ mg/dL (Negative); RBC Urine 0-2 /hpf (0-2); Specific Grav Ur 1.021 (1.001-1.035); Squamous Epithelial Cell Urine Occasional /hpf (Few); Urobilinogen Urine 0.2 mg/dL (<2.0); WBC Urine 0-5 /hpf (0-3)
[2023-12-15 22:16] LABS: Add Urine Microscopic? YES
[2023-12-15 22:44] VITALS: BP 120/92; PULSE 108; RESP 32; O2SAT 96
[2023-12-15 23:17] LABS: Reflex Lactic Acid Yes or No Add Lactic
[2023-12-15] MEDS: SODIUM CHLORIDE 0.9% IV 1,000 ML 500 ML IV CONT (23:26)
[2023-12-16] VITALS (12 sets, daily range): BP systolic 104–144; BP diastolic 90–113; PULSE 96–120; RESP 16–34; O2SAT 93–100
[2023-12-16] MEDS: MORPHINE SULFATE (*CRX) 2 MG/ML INJ IV PUSH (00:27)
[2023-12-16 00:37] LABS: Lactic Acid 2.1 mmol/L (0.7-2.0)
[2023-12-16 00:57] LABS: Troponin I 0.237 ng/mL (0.000-0.034)
[2023-12-16 03:28] LABS: Troponin I 0.275 ng/mL (0.000-0.034)
[2023-12-16] MEDS: SODIUM CHLORIDE 0.9% IV 1,000 ML 125 ML IV CONT (04:12)
[2023-12-16 07:49] LABS: Hematocrit 28.6 % (37.0-47.0); Hemoglobin 9.3 g/dL (12.0-15.0)
--- NOTE | 2023-12-16 08:19 | PC.NURSE ---
Spoke with Sarah, patient's daughter with update.
[2023-12-16] MEDS: dilTIAZem HCL CD 180 MG CAP.24HR 360 MG PO (08:37)
[2023-12-16] MEDS: calcitrioL 0.25 MCG CAPSULE PO (08:37)
[2023-12-16] MEDS: LORATADINE 10 MG TABLET PO (08:37)
[2023-12-16] MEDS: METOPROLOL SUCCINATE EXT REL 50 MG TABCR PO (08:37)
[2023-12-16] MEDS: metFORMIN HCL XR 500 MG TAB.SR.24H PO (08:38)
[2023-12-16] MEDS: FUROSEMIDE 20 MG TABLET PO ×2 (08:38→19:01)
[2023-12-16] MEDS: PANTOPRAZOLE 40 MG TABLET PO ×2 (08:38→21:08)
[2023-12-16] MEDS: FERROUS SULFATE 325 MG TABLET DR PO (08:38)
[2023-12-16] MEDS: allopurinoL 300 MG TABLET PO (08:38)
[2023-12-16 09:27] LABS: Glucose Point of Care 140 mg/dl (65-105)
--- NOTE | 2023-12-16 11:11 | PC.NURSE ---
Haley with [facility] transfer center called for update on patient status. States she will call back when pt has a bed at [facility].
--- NOTE | 2023-12-16 13:37 | PC.NURSE ---
clear liquid diet tray ordered
--- NOTE | 2023-12-16 18:52 | PC.NURSE ---
Pharmacy called for patient's medication.
[2023-12-16 19:01] LABS: Hematocrit 30.1 % (37.0-47.0); Hemoglobin 9.7 g/dL (12.0-15.0)
--- NOTE | 2023-12-16 22:02 | ECG_ITS ---
Test Date: 2023-12-16 22:02:06 Measurements Intervals [place] Rate: 98 P: 15 TX: 187 QRS: -7 QRSD: 90 T: 161 QT: 345 QTc: 442 Interpretive Statements SINUS RHYTHM POSSIBLE LEFT ATRIAL ENLARGEMENT [-0.1mV P-WAVE IN V1/V2] LEFT VENTRICULAR HYPERTROPHY AND ST-T CHANGE AND INTRAVENTRICULAR CONDUCTION DELAY [ ABNORMAL ECG Compared to ECG 12/15/2023 20:37:19 NO DIFFERENCE Electronically Signed On 12-18-2023 10:44:17 CDT by Radames Farrar M.D.
[2023-12-17] VITALS (19 sets, daily range): BP systolic 91–117; BP diastolic 76–97; PULSE 86–116; RESP 15–43; TEMP 36.4–39.2; O2SAT 91–99
[2023-12-17] MEDS: FUROSEMIDE INJ 40 MG/4 ML VIAL IV PUSH (07:24)
[2023-12-17 08:06] LABS: Alveolar/Arterial O2 Gradient 231.4 mmHg; Base Excess ABG -4.2 mEq/l (+/-2.0); Carboxyhemoglobin 0.2 % THb (0-2.0); Fractional Inspired Oxygen 44 %; HCO3 ABG 17.1 mEq/l (22.0-26.0); Methemoglobin ABG 0.3 %THb (0-1.5); Oxygen Content ABG 12.5 %vol (16.0-22.0); Oxygen Saturation ABG 93.8 % (95.0-100.0); Oxyhemoglobin 90.7 % THb (90.0-100.0); PO2 ABG 58.7 mmHg (80.0-100.0); PO2 FiO2 Ratio Arterial Blood 1.33 %; Reduced Hemoglobin 8.8 %THb (0-5.0); Total Hemoglobin 9.8 g/dL (12.0-18.0)
--- NOTE | 2023-12-17 08:06 | ECG_ITS ---
Test Date: 2023-12-17 08:06:33 Measurements Intervals [place] Rate: 111 P: 5 SD: 152 QRS: 0 QRSD: 88 T: 183 QT: 340 QTc: 463 Interpretive Statements SINUS TACHYCARDIA LEFT VENTRICULAR HYPERTROPHY WITH QRS WIDENING AND SECONDARY REPOLARIZATION ABNORMALITY ABNORMAL ECG Compared to ECG 12/16/2023 22:02:06 NO DIFFERENCE Electronically Signed On 12-18-2023 10:52:37 CDT by Radames Farrar M.D.
[2023-12-17 08:07] LABS: Device NASAL CANNULA; Modified Allen's Test Pass; PCO2 ABG 20.7 mmHg (35.0-45.0); Site Drawn RIGHT RADIAL; pH ABG 7.534 (7.350-7.450)
[2023-12-17 08:29] LABS: Alanine Aminotransferase 31 U/L (6-35); Alkaline Phosphatase 80 U/L (38-126); Anion Gap 12 mmol/L (4-12); Aspartate Amino Transferase 41 U/L (14-36); Bilirubin,Total 1.6 mg/dL (0.2-1.3); Blood Urea Nitrogen 54 mg/dL (7-17); Calcium 8.4 mg/dL (8.4-10.2); Carbon Dioxide 19 mmol/L (22-30); Chloride 107 mmol/L (98-107); Estimated CRCL calculation 27 ml/min; Estimated Glomerular Filt Rate 32; Glucose 126 mg/dL (65-110); Potassium 3.8 mmol/L (3.4-5.0); Sodium 138 mmol/L (137-145)
[2023-12-17 08:50] LABS: Basophils Percent Auto 0.3 % (0.2-1.2); Hematocrit 29.1 % (37.0-47.0); Hemoglobin 9.4 g/dL (12.0-15.0); Immature Granulocyte Absolute 0.41 K/mm3 (0.00-0.031); Immature Granulocyte Percent A 5.4 % (0-0.5); Immature Platelet Fraction Pct 7.5 % (0.9-11.2); Lymphocytes Absolute Auto 1.06 K/mm3 (0.9-3.2); Mean Corpuscular HGB Conc 32.3 g/dl (32-36); Mean Corpuscular Hemoglobin 30.1 pg (26-34); Mean Corpuscular Volume 93.3 fl (80-100); Mean Platelet Volume 12.7 fl (7.4-10.4); Monocytes Absolute Auto 0.1 K/mm3 (0.1-0.6); Monocytes Percent Auto 1.8 % (2.6-8.5); Neutrophils Percent Auto 78.5 % (45.5-73.1); Nucleated Red Blood Cells Perc 1.3 % (0.0-0.2); Platelet Count Result 64 k/mm3 (150-375); Red Blood Count 3.12 M/mm3 (4.2-5.4); Red Cell Distribution Width 16.7 % (11.5-14.5); White Blood Count 7.6 K/mm3 (4.5-10.0)
--- NOTE | 2023-12-17 08:54 | PC.NURSE ---
Called pharmacy to get pts meds. Gabriel states he will get them ready and send them up.
--- NOTE | 2023-12-17 08:59 | PC.NURSE ---
Clear liquid diet tray ordered for pt.
[2023-12-17] MEDS: IPRATROPIUM 0.5 MG/ALBUTEROL SULFATE 2.5 MG AMPUL.NEB 3 ML INHALATION (09:02)
[2023-12-17 09:04] LABS: Anisocytosis 1+; Platelet Estimate Decreased (Adequate); Polychromasia 1+; Schistocytes None Seen
--- NOTE | 2023-12-17 09:24 | PC.NURSE ---
0904 Spoke with the [facility] transfer center who states since pt is now requiring bipap that she now qualifies for an ICU bed. They state they are going to check with [facility] to check on ICU bed availability. Pt and pts family updated.
--- NOTE | 2023-12-17 09:45 | PC.NURSE ---
Remains on wait list at [facility], [place]
[2023-12-17] MEDS: dilTIAZem HCL CD 180 MG CAP.24HR 360 MG PO (09:58)
[2023-12-17] MEDS: FERROUS SULFATE 325 MG TABLET DR PO (09:59)
[2023-12-17] MEDS: METOPROLOL SUCCINATE EXT REL 50 MG TABCR PO (09:59)
[2023-12-17] MEDS: metFORMIN HCL XR 500 MG TAB.SR.24H PO (09:59)
[2023-12-17] MEDS: LORATADINE 10 MG TABLET PO (09:59)
[2023-12-17] MEDS: PANTOPRAZOLE 40 MG TABLET PO (09:59)
[2023-12-17] MEDS: calcitrioL 0.25 MCG CAPSULE PO (09:59)
[2023-12-17] MEDS: allopurinoL 300 MG TABLET PO (10:00)
[2023-12-17] MEDS: ACETAMINOPHEN 500 MG TABLET 1000 MG PO (10:00)
[2023-12-17 10:08] LABS: Add Urine Microscopic? YES; Appearance Urine Clear (Clear); Bacteria Urine 4+ /hpf; Bilirubin Urine Negative (Negative); Blood Urine Negative (Negative); Color Urine Yellow (Yellow); Glucose Urine UA Negative (Negative); Ketones Urine Negative (Negative); Leukocyte Esterase Ur Negative LEU/UL (Negative); Nitrate Urine Negative (Negative); Protein Urine Trace mg/dL (Negative); RBC Urine 0-2 /hpf (0-2); Specific Grav Ur 1.011 (1.001-1.035); Squamous Epithelial Cell Urine None Seen /hpf (Few); Urobilinogen Urine 0.2 mg/dL (<2.0); WBC Urine 0-5 /hpf (0-3)
[2023-12-17 11:46] LABS: Influenza A QL RT-PCR Negative (Negative); Influenza B QL RT-PCR Negative (Negative); RSV RNA, RT-PCR Negative (Negative); SARS-CoV-2 RNA PCR Negative (Negative)
[2023-12-17] MEDS: AZITHROMYCIN 500 MG/NS 250 ML 500 MG/250 ML BAG 250 MG IVPB (11:54)
[2023-12-17] MEDS: MORPHINE SULFATE (*CRX) 2 MG/ML INJ IV PUSH (11:55)
--- NOTE | 2023-12-17 12:37 | PM.IMHP ---
H&P: HPI History of Present Illness Date/Time: 12/17/23 12:37 Chief Complaint: Generalized Weakness Narrative: 73 y/o F presents here with generalized weakness, bright red blood in stool, and shortness of breath with PMH of Cardiomyopathy, chronic anemia, CKD, descending thoracic aortic aneurysm, endometrial a dental carcinoma, HTN, hyperparathyroidism, MICHAEL, pulmonary hypertension, subaortic stenosis. The patient presented here via EMS from home on 12/14 for further evaluation of BRB per rectum, SOB, and generalized weakness. Patient initially noted bright red blood in the toilet after she would urinate and defecate. She is unsure if bleeding is coming from her bottom or vagina. Bleeding has been intermittent for the past week and she estimates that this occurred XX times. She is not on anticoagulation. She last colonoscopy was performed approximately 5 years ago which showed benign polyps. No previous history of rectal bleeding or GI bleed? Straining or constipation? Also reporting generalized weakness that has been present for the past XX. Patient also reporting shortness of breath that is intermittent for the past XX. Initial VS at presentation: 97.4? F, HR 120, RR 16, 111/83, and 100% on RA. ED workup showed: No leukocytosis, hemoglobin 9.8, elevated D-dimer, creatinine 2.1 and it GFR 28, lactic 3.0, initial troponin 0.189, and UA showed 1+ protein. CXR showed unchanged discoid atelectasis/ scarring at the right lower lung zone and unchanged large aneurysm of the descending thoracic aorta. CT of the abdomen/pelvis showed no acute intra-abdominal / pelvic process, large fusiform aneurysm that is unchanged, and sigmoid diverticulosis. Pulmonary perfusion imaging showed low probability for pulmonary embolism. Repeat CXR showed minimal haziness in the right upper lobe that is nonspecific, stable marked prominence of aortic in a a descending thoracic aorta is compatible with known aneurysm, stable MediPort. [facility] Past Medical History Medical History Cardiomyopathy Chronic anemia Chronic kidney disease, stage 3 Chronic rhinitis Descending thoracic aortic aneurysm Endometrial adenocarcinoma Essential (primary) hypertension Hyperparathyroidism Hypertrophic obstructive cardiomyopathy MICHAEL on CPAP Pulmonary hypertension Rhinitis Subaortic stenosis Surgical History Surgical History History of cataract extraction 09/11/2010 History of salpingectomy Right side 09/12/2013 Family History Family History Mother Diabetes mellitus Family history of arthritis Father Patient's father is in good health Social History Social History Social History: Surrogate medical decision maker: Madelin Salgado, daughter. Code status: Full code. Smoking status: Never smoker Second hand tobacco smoke exposure: No Alcohol intake: never Substance use: never Substance use type: does not use Do You Feel Safe in your Home?: Yes Lack of Transportation: No Lack of Food: Never True Current Housing: Decline to Answer Concerned About Future Housing: No Difficulty Paying Gas/Electric Bills: No Difficulty Paying for Meds: No Currently Unemployed: No Education: Decline to Answer Difficulty w/ Childcare or Family Care: No Spiritual care concerns: No Agree to blood products: Yes Meds Home Medications and Allergies Home Medications Medication Instructions Recorded Confirmed Type fluticasone propionate 50 1 spray intranasal DAILY 09/02/21 12/02/23 History mcg/actuation nasal spray,suspension polyethylene glycol 3350 17 gram 17 g PO DAILY PRN Constipation 11/12/22 12/02/23 History oral powder packet (Miralax) ferrous sulfate 325 mg (65 mg 325 mg PO BID #[id number]
== END 2023-12-17 13:28 | disposition short-term general hospital (02) ==
PROVIDERS: Physician Assistant; Student in an Organized Health Care Education/Training Program; Emergency Provider Emergency Medicine; PCP Family Medicine
DX: R53.1 Weakness (principal); I50.9 Heart failure, unspecified; K57.30 Diverticulosis of large intestine without perforation or abscess without bleeding; D64.9 Anemia, unspecified; R79.89 Other specified abnormal findings of blood chemistry; K92.2 Gastrointestinal hemorrhage, unspecified; Z20.822 Contact with and (suspected) exposure to COVID-19; I13.0 Hypertensive heart and chronic kidney disease with heart failure and stage 1 through stage 4 chronic kidney disease, or unspecified chronic kidney disease; E11.22 Type 2 diabetes mellitus with diabetic chronic kidney disease; N18.30 Chronic kidney disease, stage 3 unspecified; I71.23 Aneurysm of the descending thoracic aorta, without rupture; E21.3 Hyperparathyroidism, unspecified; E03.9 Hypothyroidism, unspecified; I42.1 Obstructive hypertrophic cardiomyopathy; I27.20 Pulmonary hypertension, unspecified; G47.33 Obstructive sleep apnea (adult) (pediatric); Z85.42 Personal history of malignant neoplasm of other parts of uterus; Z79.84 Long term (current) use of oral hypoglycemic drugs; Z79.899 Other long term (current) drug therapy; R00.0 Tachycardia, unspecified; R94.31 Abnormal electrocardiogram [ECG] [EKG]; I51.7 Cardiomegaly
CPT/HCPCS: 36415; 36600; 71045; 74176; 78582; 80053; 81001; 82375; 82805; 82948; 83050; 83605; 83735; 83880; 84443; 84484; 85014; 85018; 85025; 85055; 85380; 85610; 85730; 86850; 86900; 86901; 87040; 87636; 87637; 93005; 94640; 96361; 96365; 96367; 96375; 96376; 99285; A9270; A9540; A9558; J0456; J0696; J1940; J2270; J7030

== ENCOUNTER 2024-04-05 11:52 | Emergency (ER) | payer MEDICARE, SELFPAY ==
[2024-04-05] VITALS (9 sets, daily range): BP systolic 110–141; BP diastolic 50–100; PULSE 86–123; RESP 17–24; TEMP 36.4; O2SAT 96–100
--- NOTE | ~2024-04-05 | CT_ITS ---
EXAMINATION: CT diagnostic chest wo con DATE: 04/05/2024 14:11 INDICATION: SOB TECHNIQUE: Computed tomography (CT) of the chest was performed without intravenous contrast. Addition al 3D reconstructions utilizing coronal maximum intensity projection (MIP) were performed. Automated exposure control and iterative reconstruction technique were employed. The dose-length product was 13 9.42 mGy-cm. COMPARISON: CT dated 12/04/2023 FINDINGS: Persistent discoid atelectasis/scarring in the right middle lobe and superior segment of the right lo wer lobe. No pneumonia or pulmonary edema. Very small left pleural effusion. Cardiomegaly. Atheroscle rotic coronary artery calcifications. Aortic valve calcification. No pericardial effusion. Right subc lavian central venous port catheter with distal tip at the midsuperior vena cava. Large-bore dual-lum en right internal jugular central venous catheter with distal tip in the high right atrium. No pathol ogically enlarged thoracic lymphadenopathy. Visualized abdomen is unremarkable. Moderate thoracic spo ndylosis. Ectatic ascending thoracic aorta measuring up to 4.2 x 4.2 cm in maximal diameter. No significant int erval change in extensive aneurysmal dilation of the descending thoracic aorta which measures up to 7 .2 x 6.6 cm in maximal diameter at the proximal descending thoracic aorta and 5.9 x 5.5 cm in the dis tori descending thoracic aorta with intervening tapering to 4.8 x 3.6 cm in the mid descending thoraci c aorta.2.8 cm at the 4.8 x 3.6 cm in the mid descending thoracic aorta. Upper abdominal aorta cephal ad to the takeoff of the celiac axis. IMPRESSION: 1. Very small left pleural effusion and discoid atelectasis/scarring in the right middle and right lo wer lobes. 2. Chronic aneurysmal dilation of the descending thoracic aorta measuring up to 7.2 x 6.6 cm. 3. Cardiomegaly. Reviewed, dictated and finalized at location B. CE INVESTIGATOR IMPRESSION: 1. Very small left pleural effusion and discoid atelectasis/scarring in the rig ht middle and right lower lobes. 2. Chronic aneurysmal dilation of the descending thoracic aorta measuring up to 7.2 x 6.6 cm. 3. Cardiomegaly.
--- NOTE | ~2024-04-05 | XR_ITS ---
XR chest 2V Ordering provider: Nathaniel Rodriguez MD History: 73 years Female with . SOB . Comparison: December 17, 2023 FINDINGS: MEDIASTINUM: The cardiac silhouette is slightly enlarged. Aneurysmal dilatation of the aortic arch is seen which is slightly larger than the previous study. CT evaluation advised. Right permacath and right Port-A-Cath are noted with the tip of both is overlying the superior vena c yusuf. LUNGS: No infiltrates, effusions or pneumothorax. Opacity seen in the right infrahilar area. CT evalu ation advised. Increased lucency in the left hemithorax is seen with minimal bronchovascular markings. The possibili ty of atelectasis of one lobe and hyperinflation of the other is not excluded. CT evaluation is advis ed. OTHER: No free air under the diaphragm. IMPRESSION: Aneurysmal dilatation of the aortic arch. Possible nodule in the right paracardiac area. CT evaluation advised. Dictated lucency in the left hemithorax with minimal markings. Atelectasis in one lobe with hyperinfl ation other low is not excluded. Reviewed, dictated and finalized at location A. R INSPECTOR IMPRESSION: Aneurysmal dilatation of the aortic arch. Possible nodule in the right paracardiac area. CT evaluation advised. Dictated lucency in the left hemithorax with minimal markings. Atelectasis in o ne lobe with hyperinflation other low is not excluded.
--- NOTE | 2024-04-05 12:00 | ECG_ITS ---
Test Date: 2024-04-05 12:04:39 Measurements Intervals [place] Rate: 119 P: 9 DC: 171 QRS: -14 QRSD: 120 T: 162 QT: 333 QTc: 469 Interpretive Statements SINUS TACHYCARDIA POSSIBLE LEFT ATRIAL ENLARGEMENT LEFT VENTRICULAR HYPERTROPHY AND ST-T CHANGE ST-T WAVE ABNORMALITY IN ANTEROLATERAL LEADS- CONSIDER ISCHEMIA BASELINE ARTIFACT- I, II, III, AVR, AVL, AVF ABNORMAL ECG Compared to ECG 12/17/2023 08:06:33 ST-T WAVE ABNORMALITY NOW PRESENT Electronically Signed On 04-05-2024 12:48:38 ALLIGATOR SHEAR OPERATOR by Rubin Carrizales D.O.
[2024-04-05 12:18] LABS: Basophils Absolute Auto 0.1 K/mm3 (0.0-0.1); Basophils Percent Auto 1.2 % (0.2-1.2); Eosinophils Absolute Auto 0.1 K/mm3 (0-0.3); Hematocrit 31.8 % (37.0-47.0); Hemoglobin 10.1 g/dL (12.0-15.0); Immature Granulocyte Absolute 0.05 K/mm3 (0.00-0.031); Immature Granulocyte Percent A 0.9 % (0-0.5); Lymphocytes Absolute Auto 1.64 K/mm3 (0.9-3.2); Mean Corpuscular HGB Conc 31.8 g/dl (32-36); Mean Corpuscular Hemoglobin 29.4 pg (26-34); Mean Corpuscular Volume 92.7 fl (80-100); Mean Platelet Volume 9.7 fl (7.4-10.4); Monocytes Absolute Auto 0.5 K/mm3 (0.1-0.6); Monocytes Percent Auto 9.1 % (2.6-8.5); Neutrophils Absolute Auto 3.5 K/mm3 (1.3-6.7); Neutrophils Percent Auto 59.8 % (45.5-73.1); Platelet Count Result 375 k/mm3 (150-375); Red Blood Count 3.43 M/mm3 (4.2-5.4); Red Cell Distribution Width 14.6 % (11.5-14.5); White Blood Count 5.9 K/mm3 (4.5-10.0)
[2024-04-05 12:31] LABS: Alanine Aminotransferase 16 U/L (6-35); Albumin Level 3.4 g/dL (3.5-5.1); Alkaline Phosphatase 171 U/L (38-126); Anion Gap 9 mmol/L (4-12); Aspartate Amino Transferase 30 U/L (14-36); Bilirubin,Total 0.6 mg/dL (0.2-1.3); Blood Urea Nitrogen 21 mg/dL (7-17); Calcium 9.7 mg/dL (8.4-10.2); Carbon Dioxide 21 mmol/L (22-30); Chloride 110 mmol/L (98-107); Estimated CRCL calculation 32 ml/min; Estimated Glomerular Filt Rate 39; Glucose 106 mg/dL (65-110); Potassium 3.8 mmol/L (3.4-5.0); Sodium 140 mmol/L (137-145)
--- NOTE | 2024-04-05 13:05 | ED.GENADULT ---
HPI - General Adult General Chief complaint: Shortness of Breath/Dyspnea Stated complaint: SOB, home health told her to come Time Seen by Provider: 04/05/24 12:28 History of Present Illness HPI narrative: 73-year-old female presents to the emergency department for evaluation for exertional shortness of breath. Patient did have a recent extended hospitalization. Patient is beginning PT OT and does still have a dialysis catheter in her right side chest. Patient has not required dialysis for for approximately 2 months. Patient was getting PT OT today when her therapist altered that she needed to be evaluated for her shortness of breath. Patient denies any current shortness of breath but does admit that she has had some exertional shortness of breath. Patient denies any chest pain. Patient denies any recent falls or injuries Related Data Home Medications Medication Instructions Recorded Confirmed fluticasone propionate 50 1 spray intranasal DAILY 09/02/21 03/16/24 mcg/actuation nasal spray,suspension polyethylene glycol 3350 17 gram 17 g PO DAILY PRN Constipation 11/12/22 03/16/24 oral powder packet (Miralax) mecobalamin (vitamin B12) 500 mcg 500 mcg PO DAILY 03/24/23 03/16/24 chewable tablet potassium chloride 10 mEq 10 meq PO DAILY 03/24/23 03/16/24 tablet,extended release Allergies Allergy/AdvReac Type Severity Reaction Status Date / Time iodine contrast Allergy Mild Itching Uncoded 04/05/24 12:37 Review of Systems Review of Systems: All systems reviewed & are unremarkable except as noted in HPI and below PMFSH Past Medical History Medical History Cardiomyopathy Chronic anemia Chronic kidney disease, stage 3 Chronic rhinitis Descending thoracic aortic aneurysm Endometrial adenocarcinoma Essential (primary) hypertension Hyperparathyroidism Hypertrophic obstructive cardiomyopathy MICHAEL on CPAP Pulmonary hypertension Rhinitis Subaortic stenosis Surgical History Surgical History History of cataract extraction 09/11/2010 History of salpingectomy Right side 09/12/2013 Family History Family History Mother Diabetes mellitus Family history of arthritis Father Patient's father is in good health Social History Social History (Reviewed 03/16/24 @ 14:00 by YANET Savage Social History: Surrogate medical decision maker: Madelin Salgado, daughter. Code status: Full code. Smoking status: Never smoker Second hand tobacco smoke exposure: No Alcohol intake: never Substance use: never Substance use type: does not use Do You Feel Safe in your Home?: Yes Lack of Transportation: No Lack of Food: Never True Current Housing: Decline to Answer Concerned About Future Housing: No Difficulty Paying Gas/Electric Bills: No Difficulty Paying for Meds: No Currently Unemployed: No Education: Decline to Answer Difficulty w/ Childcare or Family Care: No Spiritual care concerns: No Agree to blood products: Yes Exam Narrative: APPEARANCE: Well appearing, no pain, no distress, well-nourished. HEAD: normocephalic, atraumatic. EYES: PERRLA/EOMI, conjunctivae clear. NOSE: Normal no drainage EARS:TMS clear with good light reflex. THROAT: Pharynx clear, no exudate. NECK: Supple. No adenopathy, no masses. RESPIRATORY: Airway patent, respirations nonlabored. Clear to auscultation bilaterally, no rales, rhonchi, wheezing. CARDIOVASCULAR: Regular rate and rhythm without murmurs rubs or gallops. ABDOMINAL: Soft, nontender, nondistended, normal bowel sounds MUSCULOSKELETAL: Moves all extremities. Strength/ROM intact, No edema, No calf tenderness. NEURO: Alert. Cranial nerves II through XII intact. Grossly intact SKIN: Warm, dry. Normal Color Course Vital Signs Vital signs: Vital Signs Temperature 97.6 F 04/05/24 11:57 Pulse Rate 123 H 04/05/24 11:57 Respiratory Rate 20 04/05/24 11:57 Blood Pressure 110/50 L 04/05/24 11:57 Pulse Oximetry 100 04/05/24 11:57 Oxygen Delivery Room Air 04/05/24 11:57 Temperature 97.5 F L 04/05/24 17:25 Pulse Rate 86 04/05/24 17:25 Respiratory Rate 20 04/05/24 17:25 Blood Pressure 135/97 H 04/05/24 17:25 Pulse Oximetry 100 04/05/24 17:25 Oxygen Delivery Room Air 04/05/24 16:20 Medical Decision Making MDM Narrative Medical decision making narrative: 73-year-old female presents emergency department for evaluation for shortness of breath. On re-evaluation patient states she does feel improved. Patient is afebrile with no leukocytosis and hemoglobin of 10.1 which is similar to her baseline. Patient has no acute abnormalities on her CMP. Patient's BNP is 3600 which is better than her recent baseline. Patient was negative for influenza RSV and COVID. Patient is not tachycardic and patient has a pulse ox of 100% on room air. Patient is no distress. Patient states she does feel strong enough for discharge to home. Patient does have follow-up with Cardiology tomorrow. Patient was updated on reasons to return the emergency department. All questions concerns were addressed. Differential Diagnosis Differential Diagnosis: Pulmonary edema, pneumonia, pneumothorax, pulmonary embolism, fluid overload, and deconditioning, influenza, RSV, COVID Vital Signs Vital Signs: Vital Signs Temperature 97.6 F 04/05/24 11:57 Pulse Rate 123 H 04/05/24 11:57 Respiratory Rate 20 04/05/24 11:57 Blood Pressure 110/50 L 04/05/24 11:57 Pulse Oximetry 100 04/05/24 11:57 Oxygen Delivery Room Air 04/05/24 11:57 Temperature 97.5 F L 04/05/24 17:25 Pulse Rate 86 04/05/24 17:25 Respiratory Rate 20 04/05/24 17:25 Blood Pressure 135/97 H 04/05/24 17:25 Pulse Oximetry 100 04/05/24 17:25 Oxygen Delivery Room Air 04/05/24 16:20 Lab Data Lab results reviewed: Yes I reviewed the patient's lab results. 04/05/24 12:11 04/05/24 12:11 Labs: Lab Results 04/05/24 04/05/24 Range/Units 12:11 13:10 WBC 5.9 (4.5-10.0) K/mm3 RBC 3.43 L (4.2-5.4) M/mm3 Hgb 10.1 L (12.0-15.0) g/dL Hct 31.8 L (37.0-47.0) % MCV 92.7 (80-100) fl MCH 29.4 (26-34) pg MCHC 31.8 L (32-36) g/dl RDW 14.6 H (11.5-14.5) % Plt Count 375 D (150-375) k/mm3 MPV 9.7 (7.4-10.4) fl Immature Gran % (Auto) 0.9 H (0-0.5) % Neut % (Auto) 59.8 (45.5-73.1) % Lymph % (Auto) 28.0 (18.3-44.2) % Bollinger % (Auto) 9.1 H (2.6-8.5) % Eos % (Auto) 1.0 (0-4.4) % Baso % (Auto) 1.2 (0.2-1.2) % Lymph # (Auto) 1.64 (0.9-3.2) K/mm3 Bollinger # (Auto) 0.5 (0.1-0.6) K/mm3 Eos # (Auto) 0.1 (0-0.3) K/mm3 Baso # (Auto) 0.1 (0.0-0.1) K/mm3 Abs Immat Gran (auto) 0.05 H (0.00-0.031) K/mm3 Absolute Neuts (auto) 3.5 (1.3-6.7) K/mm3 Absolute Nucleated RBC 0.000 (0.0-0.012) K/mm3 Nucleated RBC % 0.0 (0.0-0.2) % Sodium 140 (137-145) mmol/L Potassium 3.8 (3.4-5.0) mmol/L Chloride 110 H (98-107) mmol/L Carbon Dioxide 21 L (22-30) mmol/L Anion Gap 9 (4-12) mmol/L BUN 21 H D (7-17) mg/dL Creatinine 1.60 H (0.7-1.0) mg/dL Estim Creat Clear Calc 32 ml/min Estimated GFR 39 L (59 - ) Glucose 106 (65-110) mg/dL Calcium 9.7 (8.4-10.2) mg/dL Total Bilirubin 0.6 (0.2-1.3) mg/dL AST 30 (14-36) U/L ALT 16 (6-35) U/L Alkaline Phosphatase 171 H (38-126) U/L NT-Pro-B Natriuret Pep 3660 H (19.9-100) pg/mL Total Protein 7.0 (6.3-8.2) g/dL Albumin 3.4 L (3.5-5.1) g/dL Influenza A (RT-PCR) Negative (Negative) Influenza B (RT-PCR) Negative (Negative) RSV (RT-PCR) Negative (Negative) SARS-CoV-2 RNA (RT-PCR) Negative (Negative) Imaging Data Radiologist's impression: Impressions Chest X-Ray 04/05/24 14:20 IMPRESSION: Aneurysmal dilatation of the aortic arch. Possible nodule in the right paracardiac area. CT evaluation advised. Dictated lucency in the left hemithorax with minimal markings. Atelectasis in one lobe with hyperinflation other low is not excluded. Chest CT 04/05/24 14:21 IMPRESSION: 1. Very small left pleural effusion and discoid atelectasis/scarring in the right middle and right lower lobes. 2. Chronic aneurysmal dilation of the descending thoracic aorta measuring up to 7.2 x 6.6 cm. 3. Cardiomegaly. Discharge Plan Discharge Clinical Impression: Exertional dyspnea Patient Disposition: Home, Self-Care Condition: Stable Instructions: Antibiotic Form Additional Instructions: Have close follow-up with cardiology as scheduled. If you have any worsening symptoms then please call or return to the emergency department. Prescriptions: No Action mecobalamin (vitamin B12) 500 mcg Tablet,Chewable 500 mcg PO DAILY polyethylene glycol 3350 [Miralax] 17 gram Powder In Packet 17 g PO DAILY PRN (Reason: Constipation) potassium chloride 10 mEq Tablet Extended Release 10 meq PO DAILY fluticasone propionate 50 mcg/actuation spray,suspension 1 spray intranasal DAILY Rx Instructions: administer into each nostril ferrous sulfate 325 mg (65 mg iron) tablet 325 mg PO BID Qty: 180 2RF cetirizine 10 mg tablet 10 mg PO DAILY Qty: 90 1RF metformin 1,000 mg tablet extended release 24 hr 1,000 mg PO DAILY Qty: 30 0RF Hold Instructions: Patient no longer taking famotidine 40 mg tablet 40 mg PO DAILY Qty: 90 2RF diltiazem HCl 360 mg capsule,extended release 24 hr 360 mg PO DAILY Qty: 100 3RF allopurinol 300 mg tablet 300 mg PO DAILY Qty: 100 3RF metoprolol succinate 50 mg tablet extended release 24 hr 150 mg PO DAILY 100 Days Qty: 300 3RF oxybutynin chloride 5 mg tablet extended release 24hr See Rx Instructions .ROUTE .COMPLEX Qty: 100 2RF Dose Instruction: TAKE 1 TABLET BY MOUTH DAILY Rx Instructions: TAKE 1 TABLET BY MOUTH DAILY calcitriol 0.25 mcg capsule 0.25 mcg PO DAILY Qty: 90 3RF levothyroxine 112 mcg tablet 112 mcg PO DAILY Qty: 90 0RF Follow-up/Referrals: Nory Pabon MD [Primary Care Provider] -
[2024-04-05] MEDS: ALBUTEROL SULFATE NEB 2.5 MG/3 ML INH INHALATION (13:19)
[2024-04-05 13:53] LABS: NT Pro B Type Natriuretic Pept 3660 pg/mL (19.9-100)
[2024-04-05 13:57] LABS: Influenza A QL RT-PCR Negative (Negative); Influenza B QL RT-PCR Negative (Negative); RSV RNA, RT-PCR Negative (Negative); SARS-CoV-2 RNA PCR Negative (Negative)
== END 2024-04-05 17:25 | disposition home or self-care (01) ==
PROVIDERS: Emergency Provider Emergency Medicine; PCP Family Medicine
DX: R06.00 Dyspnea, unspecified (principal); Z20.822 Contact with and (suspected) exposure to COVID-19; I71.23 Aneurysm of the descending thoracic aorta, without rupture; I42.1 Obstructive hypertrophic cardiomyopathy; I12.9 Hypertensive chronic kidney disease with stage 1 through stage 4 chronic kidney disease, or unspecified chronic kidney disease; N18.30 Chronic kidney disease, stage 3 unspecified; G47.33 Obstructive sleep apnea (adult) (pediatric); D64.9 Anemia, unspecified; E21.3 Hyperparathyroidism, unspecified; Z85.42 Personal history of malignant neoplasm of other parts of uterus; R00.0 Tachycardia, unspecified; R94.31 Abnormal electrocardiogram [ECG] [EKG]; I51.7 Cardiomegaly; Z98.49 Cataract extraction status, unspecified eye; Z90.79 Acquired absence of other genital organ(s); Z79.84 Long term (current) use of oral hypoglycemic drugs; Z79.899 Other long term (current) drug therapy
CPT/HCPCS: 36415; 71046; 71250; 80053; 83880; 85025; 87637; 93005; 94640; 99284

== ENCOUNTER 2024-04-21 01:07 | Day surgery (SDC) | payer MEDICARE, SELFPAY ==
--- NOTE | 2024-04-11 13:30 | PC.NURSE ---
Report to the Outpatient Waiting Room, entrance under the green pavilion located off [facility], at time _6:45 AM on date __04/21/24 . Planned Procedure Time: _8:45 AM .? Time changes happen often and if your time is changed the preop area will call you the afternoon before. - You and your visitor will be asked to self-screen and do not enter if you have any COVID symptoms. Please call surgeon if you need to reschedule. - A mask is optional within the hospital at this time. Patients may have clear liquids (water, carbonated beverages, clear teas, apple juice) until 3 hours prior to surgery( 5:45 AM) with a maximum of 20 ounces. - No food from midnight until time of surgery and no smoking. This includes no chewing gum, candy or mints. - Infants may have breast milk until 4 hours before surgery, infant formula 6 hours prior to surgery. - Children will be allowed to drink immediately following surgery.? If applicable, please bring a bottle or sippy cup to assist with drinking. Juice, water, soda, and popsicles are readily available.? For infants on formula, please bring formula the day of surgery.? Pacifiers are allowed. Take only the following medications with a SIP of water on the morning of surgery: DILTIAZEM,LEVOTHYROXINE,METOPROLOL DO NOT STOP ANY OF YOUR OTHER PRESCRIPTION MEDICATIONS PRIOR TO SURGERY EXCEPT THE FOLLOWING Medications to discontinue per physician ___HOLD ALL VITAMINS AND SUPPLEMENTS 3 DAYS PRE OP .LAST DOSE04/17/24 Please no make-up, nail zambian, hairspray, perfume, deodorant, or body powder the day of surgery.? No jewelry (including any body piercings) or valuables the day of surgery, leave them at home.? Please take a shower or bath the night before, or the morning of, surgery with an antibacterial soap.? Wear comfortable, loose fitting clothing.? Children are encouraged to wear pajamas. - Jewelry must be removed prior to entering the operating room.? Rings and piercings that are not removed may be cut off. - The hospital will not accept responsibility for valuables.? - Please leave all valuables, including medications, at home the day of surgery. If you are going home after surgery, a licensed ready mix truck driver must drive you home.? - NO public transportation without another adult if you receive anesthesia. - We recommend that an adult stay with you for 24 hours following discharge. - We also recommend that you do not drive, make important decision, drink alcoholic beverages, or take any drugs that were not prescribed by your health care provider for at least 24 hours after your discharge time. For Pediatric surgeries, we recommend two adults accompany the child home. Follow any additional instructions given to you from your surgeon. Telephone instructions given to __PATIENT and asked if any additional questions and then verbalized understanding. Patient advised to call surgeon office or pre surgery nurse liaison [phone] if any additional questions.
[2024-04-11 13:40] VITALS: BMI 23.2
[2024-04-21] MEDS: SODIUM CHLORIDE 0.9% IV 500 ML 30 ML IV CONT (06:30)
[2024-04-21 07:00] VITALS: BP 104/81; PULSE 90; RESP 18; TEMP 36.5; O2SAT 100
--- NOTE | 2024-04-21 07:13 | WPDANESEPPF ---
Anes - Initial Pre Proc Eval Procedure: Operation Date: 04/21/24 07:30 Proposed Procedures p Removal Tunneled Dialysis Catheter - Yudelka Walker MD Date/Time: 04/21/24 07:13 Surgeon: Yudelka Walker MD Pre Op Diagnosis: End Stage Renal Disease Patient Data Age: 73 Gender: F Height: 1.78 m Weight: 73.5 kg Allergies Allergy/AdvReac Type Severity Reaction Status Date / Time iodine contrast Allergy Mild Itching Uncoded 04/11/24 13:23 Home Medications Medication Instructions Recorded Confirmed Type fluticasone propionate 50 1 spray intranasal DAILY 09/02/21 04/11/24 History mcg/actuation nasal spray,suspension polyethylene glycol 3350 17 gram 17 g PO DAILY PRN Constipation 11/12/22 04/11/24 History oral powder packet (Miralax) mecobalamin (vitamin B12) 500 mcg 500 mcg PO DAILY 03/24/23 04/11/24 History chewable tablet potassium chloride 10 mEq 10 meq PO DAILY 03/24/23 04/11/24 History tablet,extended release famotidine 40 mg tablet 40 mg PO DAILY #90 tabs 08/31/23 04/11/24 Rx diltiazem HCl 360 mg capsule,24 360 mg PO DAILY #100 caps 09/27/23 04/11/24 Rx hr,extended release allopurinol 300 mg tablet 300 mg PO DAILY #100 tabs 11/09/23 04/11/24 Rx oxybutynin chloride 5 mg See Rx Instructions .Route 11/30/23 04/11/24 Rx tablet,extended release 24 hr .COMPLEX #100 tabs calcitriol 0.25 mcg capsule 0.25 mcg PO DAILY #90 caps 01/17/24 04/11/24 Rx cetirizine 10 mg tablet 10 mg PO DAILY #90 tabs 03/16/24 04/11/24 Rx ferrous sulfate 325 mg (65 mg 325 mg PO BID #180 tabs 03/16/24 04/11/24 Rx iron) tablet levothyroxine 112 mcg tablet 112 mcg PO DAILY #90 tabs 03/22/24 04/11/24 Rx metoprolol succinate 50 mg 50 mg PO DAILY 04/11/24 04/11/24 History tablet,extended release 24 hr Laboratory Tests 04/21/24 06:59 PT Pending INR Pending APTT Pending Patient hx anesthesia problems: none Family hx anesthesia problems: none Results Review: All pre-operative results and documents have been reviewed as part of the pre-operative evaluation. [facility] Past Medical History Medical History Cardiomyopathy Chronic anemia Chronic kidney disease, stage 3 Chronic rhinitis Descending thoracic aortic aneurysm Endometrial adenocarcinoma Essential (primary) hypertension Hyperparathyroidism Hypertrophic obstructive cardiomyopathy MICHAEL on CPAP Pulmonary hypertension Rhinitis Subaortic stenosis Surgical History Surgical History History of cataract extraction 09/11/2010 History of salpingectomy Right side 09/12/2013 Family History Family History Mother Diabetes mellitus Family history of arthritis Father Patient's father is in good health Social History Social History Social History: Surrogate medical decision maker: Madelin Salgado, daughter. Code status: Full code. Smoking status: Never smoker Second hand tobacco smoke exposure: No Alcohol intake: never Substance use: never Substance use type: does not use Do You Feel Safe in your Home?: Yes Lack of Transportation: No Lack of Food: Never True Current Housing: Decline to Answer Concerned About Future Housing: No Difficulty Paying Gas/Electric Bills: No Difficulty Paying for Meds: No Currently Unemployed: No Education: Decline to Answer Difficulty w/ Childcare or Family Care: No Living arrangements: with family Spiritual care concerns: No Agree to blood products: Yes Anes - Eval Final PreProcedure Day of Procedure 04/21/24 07:13 Patient weight: overweight Heart: regular rate and rhythm Lungs: clear to auscultation Airway: Mallampati scale class II Neurological: alert and oriented Last oral intake: >/= 8 hours ASA classification: IV Emergent: no Anesthetic plan: proceed Anesthesia type and monitoring: general GIVS and standard monitoring Results Review: All pre-operative results and documents have been reviewed as part of the pre-operative evaluation. ESRD, improving now, DM, MICHAEL noncompliant w CPAP, ECHO 11/2023 w nml LVEF, no . Informed Consent: The patient's anesthetic plan and its attendant risks and benefits were discussed with the patient/family/POA. Questions were solicited and answers provided to the satisfaction of the patient/family/POA.
[2024-04-21 07:21] LABS: INR 1.1; Prothrombin Time 14.5 Seconds (11.1-14.7)
[2024-04-21 07:22] LABS: Partial Thromboplastin Time 29.7 Seconds (22.3-36.8)
--- NOTE | 2024-04-21 08:04 | PM.IMHP ---
H&P: HPI History of Present Illness Date/Time: 04/21/24 08:04 Chief Complaint: CRF Narrative: Pt is a 73 y/o F presenting for removal of tunneled HD catheter. Pt reports catheter placed in December for acute on chronic renal failure. Pt received HD for a few wks and her kidney fxn has since recovered/improved. Pt has not needed any HD for the last few mos. She has been cleared by nephrology for removal at this time. Pt denies any issues c catheter. Review of Systems Review of Systems: All systems reviewed & are unremarkable except as noted in HPI and below PMFSH Past Medical History Medical History Cardiomyopathy Chronic anemia Chronic kidney disease, stage 3 Chronic rhinitis Descending thoracic aortic aneurysm Endometrial adenocarcinoma Essential (primary) hypertension Hyperparathyroidism Hypertrophic obstructive cardiomyopathy MICHAEL on CPAP Pulmonary hypertension Rhinitis Subaortic stenosis Surgical History Surgical History History of cataract extraction 09/11/2010 History of salpingectomy Right side 09/12/2013 Family History Family History Mother Diabetes mellitus Family history of arthritis Father Patient's father is in good health Social History Social History Social History: Surrogate medical decision maker: Madelin Salgado, daughter. Code status: Full code. Smoking status: Never smoker Second hand tobacco smoke exposure: No Alcohol intake: never Substance use: never Substance use type: does not use Do You Feel Safe in your Home?: Yes Lack of Transportation: No Lack of Food: Never True Current Housing: Decline to Answer Concerned About Future Housing: No Difficulty Paying Gas/Electric Bills: No Difficulty Paying for Meds: No Currently Unemployed: No Education: Decline to Answer Difficulty w/ Childcare or Family Care: No Living arrangements: with family Spiritual care concerns: No Agree to blood products: Yes Meds Home Medications and Allergies Home Medications Medication Instructions Recorded Confirmed Type fluticasone propionate 50 1 spray intranasal DAILY 09/02/21 04/21/24 History mcg/actuation nasal spray,suspension polyethylene glycol 3350 17 gram 17 g PO DAILY PRN Constipation 11/12/22 04/21/24 History oral powder packet (Miralax) mecobalamin (vitamin B12) 500 mcg 500 mcg PO DAILY 03/24/23 04/21/24 History chewable tablet potassium chloride 10 mEq 10 meq PO DAILY 03/24/23 04/21/24 History tablet,extended release famotidine 40 mg tablet 40 mg PO DAILY #90 tabs 08/31/23 04/21/24 Rx diltiazem HCl 360 mg capsule,24 360 mg PO DAILY #100 caps 09/27/23 04/21/24 Rx hr,extended release allopurinol 300 mg tablet 300 mg PO DAILY #100 tabs 11/09/23 04/21/24 Rx oxybutynin chloride 5 mg See Rx Instructions .Route 11/30/23 04/21/24 Rx tablet,extended release 24 hr .COMPLEX #100 tabs calcitriol 0.25 mcg capsule 0.25 mcg PO DAILY #90 caps 01/17/24 04/21/24 Rx cetirizine 10 mg tablet 10 mg PO DAILY #90 tabs 03/16/24 04/21/24 Rx ferrous sulfate 325 mg (65 mg 325 mg PO BID #180 tabs 03/16/24 04/21/24 Rx iron) tablet levothyroxine 112 mcg tablet 112 mcg PO DAILY #90 tabs 03/22/24 04/21/24 Rx metoprolol succinate 50 mg 50 mg PO DAILY 04/11/24 04/21/24 History tablet,extended release 24 hr Allergies Allergy/AdvReac Type Severity Reaction Status Date / Time iodine contrast Allergy Mild Itching Uncoded 04/21/24 07:51 Vital Signs Vital Signs - 24 hr 04/21/24 07:00 Temperature 36.5 C Pulse Rate 90 Respiratory Rate 18 Blood Pressure 104/81 Pulse Oximetry 100 Oxygen Delivery Room Air Exam Const: General: cooperative, comfortable, no acute distress and ill appearing Neck: Neck: normal visual inspection Chest: Chest palpation & inspection: normal inspection of the chest Other: RIJ TDC - C/D/I Resp: Auscultation: diminished lung sounds Cardio: Rate: regular rate Rhythm: regular rhythm GI: Inspection: normal to inspection Assessment and Plan Assessment and plan (1) Chronic kidney disease, stage 3: Code(s): N18.30 - Chronic kidney disease, stage 3 unspecified Status: Acute Assessment and Plan: will remove RIJ TDC in OR
--- NOTE | 2024-04-21 08:08 | WPDHPUPDATE1 ---
History and Physical Update Update Date/Time: 04/21/24 08:08 History and Physical has been reviewed, including an updated exam of the patient. There are NO changes in the patient's condition. Risks, benefits, and alternatives have been discussed and questions answered. Patient agrees to proceed with procedure.
[2024-04-21] MEDS: LIDO 1%/EPINEPHRINE/PF 1:200,000 30 ML VIAL 20 ML XX (08:25)
[2024-04-21] MEDS: ceFAZolin 2 GM/D5W 50 ML 2 GM/50 ML BAG IVPB (08:25)
[2024-04-21 08:51] VITALS: BP 82/56; PULSE 83; RESP 28; O2SAT 97
[2024-04-21] MEDS: NEOMYCIN/POLYMYXIN/BACITRACIN OINTMENT 15 GM TUBE 1 APPLIC TOPICAL (08:54)
[2024-04-21 09:20] VITALS: BP 97/77; PULSE 83; RESP 18
[2024-04-21 09:50] VITALS: BP 99/67; PULSE 89; RESP 18
--- NOTE | 2024-04-21 10:08 | W.PM.PROC2 ---
Procedure Note - Detailed Date of Procedure 04/21/24 Pre-op Diagnosis chronic renal failure Post-op Diagnosis Same Procedure Performed removal of right internal tunneled hemodialysis catheter Surgeon Yudelka Walker MD Anesthesia MAC and Local Indications 73-year-old female with chronic renal failure that now has recovered to be off of hemodialysis. Patient had tunneled hemodialysis catheter placed in December for emergent hemodialysis. Findings Right internal jugular tunneled hemodialysis catheter Description of Procedure The the patient was taken to the operating room and placed in the supine position. After adequate induction MAC anesthesia, the patient was prepped and draped in the normal sterile fashion. A time-out was then done to verify the patient's identity, as well as the procedure being performed. I then localized the area and around this catheter in the right chest. Once the area was locally anesthetized, I removed the previously placed sutures. I then used a hemostat to bluntly dissect around the cuff. Once I was able to free the cuff, used gentle traction and the catheter was able to be removed in full. I then held pressure at the level of the right internal jugular vein for approximately 5 minutes. Hemostasis was noted. Triple antibiotic ointment was then placed to the wound in the right chest and sterile dressings were subsequently placed. The patient tolerated the procedure well and was alert and awake postoperatively. She will be transferred to the recovery room in stable condition. Estimated Blood Loss 5 Drains No Packing No Pathology None sent Complications No immediate complications Condition Stable Disposition PACU [facility] Billing Surgery - Charge Forward: Surgery Billing
== END 2024-04-21 10:02 | disposition home or self-care (01) ==
PROVIDERS: Anesthesiology; PCP Family Medicine; Visit Provider Surgery
PROC: (CPT 49422; principal; 2024-04-21 07:30)
DX: Z49.01 Encounter for fitting and adjustment of extracorporeal dialysis catheter (principal); I42.1 Obstructive hypertrophic cardiomyopathy; G47.33 Obstructive sleep apnea (adult) (pediatric); I12.9 Hypertensive chronic kidney disease with stage 1 through stage 4 chronic kidney disease, or unspecified chronic kidney disease; N18.30 Chronic kidney disease, stage 3 unspecified; I71.23 Aneurysm of the descending thoracic aorta, without rupture; D63.1 Anemia in chronic kidney disease
CPT/HCPCS: 36589; 36415; 85610; 85730; A9270; J0690; J2003; J2004; J2405; J2704; J3010; J7040

== ENCOUNTER 2024-06-17 10:01 | Outpatient (CLI) | payer MEDICARE, SELFPAY ==
--- NOTE | ~2024-06-17 | CT_ITS ---
EXAMINATION: CT chest abdomen pelvis wo con DATE: 06/17/2024 10:31 INDICATION: Endometrial carcinoma. TECHNIQUE: Computed tomography (CT) of the chest, abdomen, and pelvis was performed without intraveno us contrast. Automated exposure control and iterative reconstruction technique were employed. The dos e-length product was 660.65 mGy-cm. COMPARISON: Chest CT 04/05/2024, 07/23/22, CT abdomen and pelvis 12/15/2023, 11/06/2023 FINDINGS: CHEST CT: The lungs demonstrate mild atelectasis. No pleural effusion. There is a right subclavian port with ti p at superior vena cava. The heart size is normal. There are coronary artery calcifications. There is a small pericardial effusion. Ascending aorta is normal in caliber. There is a chronic dissecting an eurysm of descending thoracic aorta measuring up to 7.2 cm. There is moderate thoracic spondylosis. ABDOMEN/PELVIS CT: There is a 9 mm cyst in the liver. The gallbladder, spleen, pancreas, adrenal glands, and left kidney are normal. There is a 9 mm mass of fat in right kidney, consistent with an angiomyolipoma. There is diverticulosis of the colon without evidence of diverticulitis. There are no dilated loops of bowel. The appendix is normal. There are no pathologically enlarged lymph nodes. There is no free intraperi toneal fluid. There is severe lumbar spondylosis. IMPRESSION: 1. No evidence of metastatic disease. 2. 7.2 cm dissecting aneurysm of descending thoracic aorta, increased from 5.7 cm on 07/23/2022. Surgic al evaluation is recommended. Reviewed, dictated and finalized at location A. OR LICENSING MANAGER IMPRESSION: 1. No evidence of metastatic disease. 2. 7.2 cm dissecting aneurysm of descending thoracic aorta, increased from 5.7 cm on 07/23/2022. Surgical evaluation is recommended.
== END 2024-06-17 10:02 | disposition home or self-care (01) ==
PROVIDERS: PCP Family Medicine; Visit Provider Internal Medicine Hematology & Oncology
DX: I71.012 Dissection of descending thoracic aorta (principal); C54.1 Malignant neoplasm of endometrium
CPT/HCPCS: 71250; 74176

== ENCOUNTER 2024-06-27 16:08 | Outpatient (CLI) | payer MEDICARE, SELFPAY ==
--- OUTSIDE RECORDS SUMMARY | 2024-06-27 16:11 | XMS_ITS | Clinical Summary ---
Author Organization [facility] Address [address] [place] [address] Care Team Providers Care Production Broaching Machine Operator Name Role Phone Nory Pabno MD Primary Care Provider [phone] Allergies No known active allergies Medications FeroSuL 325 mg (65 mg iron) tablet Take 325 mg by mouth daily. 08/27/19 23 Active omeprazole (PriLOSEC) 20 mg Capsule, Delayed Release(E.C.) Take 20 mg by mouth daily. 07/07/19 23 Active allopurinoL (ZYLOPRIM) 300 mg tablet 08/27/19 23 Active calcitRIOL (ROCALTROL) 0.25 mcg capsule 08/20/19 23 Active diltiaZEM (CARDIZEM CD) 360 mg Controlled Delivery 24 hour capsule 08/07/19 23 Active metoprolol succinate (TOPROL XL) 50 mg Extended Release 24 hour tablet 08/27/19 23 Active oxyBUTYnin chloride (DITROPAN XL) 5 mg Extended Release 24 hour tablet 08/20/19 23 Active lidocaine-prilo misty (EMLA) 2.5-2.5 % CreamIndication s:Endometrial carcinoma (CMS/HCC) Apply to affected area see administration instructions. 30 Gram 1 11/11/19 23 Active ondansetron (ZOFRAN ODT) 4 mg Tablet, Rapid DissolveIndicat ions:Endometria l carcinoma (CMS/HCC) Take 1 Tablet (4 mg) by mouth every 8 hours as needed for Nausea/Emesis. Dissolve tablet on top of tongue, then swallow with saliva. 30 Tablet 11/11/19 23 Active famotidine (PEPCID) 20 mg tabletIndicatio ns:Malignant neoplasm of lung, unspecified laterality, unspecified part of lung (CMS/HCC) Take 1 Tablet (20 mg) by mouth daily. 90 Tablet 04/14/20 23 Active fluticasone propionate (FLONASE) 50 mcg/spray [place], Suspension nasal inhalerIndicati ons:Malignant neoplasm of lung, unspecified laterality, unspecified part of lung (CMS/HCC) Administer 2 Sprays in each nostril daily. 16 Gram 3 04/14/20 23 Active cetirizine (ZyrTEC) 10 mg tablet Take 1 Tablet (10 mg) by mouth daily. 30 Tablet 2 06/23/19 24 Active levothyroxine 100 mcg tablet Take 1 Tablet (100 mcg) by mouth daily in the morning. 60 Tablet 1 10/06/19 24 Active Additional Information Patient taking differently: 112 mcgOral DAILY EARLY, Reported on 06/07/2024 furosemide (Lasix) 20 mg tablet Take 1 Tablet (20 mg) by mouth 2 times daily. 60 Tablet 1 11/13/19 24 Active potassium chloride (KLOR-CON) 20 mEq Extended Release tabletIndicatio ns:Malignant neoplasm of lung, unspecified laterality, unspecified part of lung (CMS/HCC) take 1 tablet by mouth daily 100 Tablet 2 11/18/19 24 Active Active Problems No known active problems Encounters Date Type Department Care Team Description 06/22/2024 4:30 PM CHAR CONVEYOR TENDER Telephone Check Up [facility] Oncology and Hematology - [address] [place] [address] Davi Lion MD Endometrial carcinoma (CMS/HCC) (Primary Dx) 06/20/2024 Orders Only [facility] Oncology and Hematology - [address] [place] [address] Davi Lion MD 06/14/2024 External Device Data STL ABSTRACTION Provider, Abstract 06/10/2024 Orders Only [facility] Oncology and Hematology - [address] [place] [address] Davi Lion MD 06/09/2024 Orders Only [facility] Oncology and Hematology - [address] [place] [address] Davi Loin MD 06/08/2024 External Device Data STL ABSTRACTION Provider, Abstract 06/08/2024 External Device Data STL ABSTRACTION Provider, Abstract 06/08/2024 Orders Only [facility] Oncology and Hematology [place] [address] [address] [place] [id number] Davi Lion MD 06/07/2024 2:45 PM CHAR CONVEYOR TENDER Office Visit [facility] Oncology and Hematology [place] [address] [address] [place] [id number] Davi Lion MD Endometrial carcinoma (CMS/HCC) (Primary Dx) 06/03/2024 Orders Only [facility] Oncology [facility] Hematology [place] [address] [address] Davi Lion MD Anemia of chronic renal failure, unspecified CKD stage (Primary Dx); Elevated TSH; Hypothyroidism, unspecified type 04/27/2024 Telephone [facility] Oncology [facility] Hematology [place] [address] [address] [place] [id number] Davi Lion MD update from Last 3 Months Family History Medical History Relation Name Comments Diabetes Brother 1 Diabetes Brother 2 Diabetes Mother Relation Name Status Comments Brother 1 Alive Brother 2 Alive Brother 3 Alive Daughter Alive Father Alive Mother Alive Sister 1 Alive Sister 2 Alive Son Alive Social History Tobacco Use Types Packs/Day Years Used Date Smoking Tobacco: Never Smokeless Tobacco: Never Tobacco Cessation:Counseling Given: Not Answered Alcohol Use Standard Drinks/Week Comments Not Currently 0 (1 standard drink = 0.6 oz pur e alcohol) Comments Unknown Sex and Gender Information Value Date Recorded Sex Assigned at Not on file Legal Sex Female 3:55 PM CDT Gender Identity Not on file Sexual Orientation Not on file Last Filed Vital Signs Vital Sign Reading Time Taken Comments Blood Pressure 113/72 06/07/2024 3:04 PM CHAR CONVEYOR TENDER Pulse 74 06/07/2024 3:04 PM CHAR CONVEYOR TENDER Temperature 35.8 C (96.4 F) 06/07/2024 3:04 PM CHAR CONVEYOR TENDER Respiratory Rate 16 06/07/2024 3:04 PM CHAR CONVEYOR TENDER Oxygen Saturation 94% 06/07/2024 3:04 PM CHAR CONVEYOR TENDER Inhaled Oxygen Concentration - - Weight 73 kg (161 lb) 06/07/2024 3:04 PM CHAR CONVEYOR TENDER Height 177.8 cm (5' 10 ) 08/29/2022 2:22 PM CDT Body Mass Index 23.1 08/29/2022 2:22 PM CDT Plan of Treatment Upcoming Encounters Date Type Department Care Team (Late st Contact Info) Description 09/20/2024 9:45 AM CDT Office Visit [facility] Oncology and Hematology [facility] [address] [facility] [address] [place] [address] Davi Lion MD [address] [facility] [address] [place] [address] Health Maintenance Due Date Last Done Comments DIABETES ANNUAL FOOT EXAM 1970 DIABETES ANNUAL RETINAL EXAM 1970 DIABETES MICROALBUMIN ANNUAL SCREEN 1970 LDL CHOLESTEROL ANNUAL 1970 DTAP/TDAP/TD VACCINES (1 - Tdap) 08/18/1971 PNEUMOCOCCAL VACCINE 65+ YEA RS (1 of 2 - PCV) 08/18/1971 BREAST CANCER SCREENING 1992 FIT-DNA Q 3 years 1997 FIT/FOBT Q 1 year 1997 Flex Sig/CT Colonography Q 5 years 1997 ZOSTER VACCINE (1 of 2) 2002 RSV VACCINE (60+ or ) (1 - Risk 60-74 years 1-dose series) 2012 OSTEOPOROSIS SCREENING 2017 INFLUENZA VACCINE (#1) 2023 [place] Prev entative Visit/Annual Wellness Visit 05/18/2024 DIABETES HBA1C Q 6 MONTHS 06/20/2024 12/19/2023 COLORECTAL SCREENING 12/31/2033 01/01/2024, 01/01/2024, 05/03/2018 Colorectal Cancer Screening 12/31/2033 Procedures Procedure Name Priority Date/Time Associated Diagnosis Comments CT CHEST ABDOMEN PELVIS W CONT Routine 06/17/2024 8:03 AM CHAR CONVEYOR TENDER BASIC METABOLIC PANEL Routine 06/07/2024 3:43 PM CHAR CONVEYOR TENDER CANCER ANTIGEN 125 Routine 06/07/2024 1: 00 PM CHAR CONVEYOR TENDER COMPREHENSIVE METABOLIC PANEL Routine 06/07/2024 11:14 AM CHAR CONVEYOR TENDER from Last 3 Months Results * CT CHEST ABDOMEN PELVIS W CONT (06/17/2024 8:03 AM CHAR CONVEYOR TENDER) Anatomical Region Laterality Modality Chest Other us Davi Lion MD CT ORDERABLES Final Result * BASIC METABOLIC PANEL (06/07/2024 3:43 PM CHAR CONVEYOR TENDER) Blood us Davi Lion MD CHEMISTRY ORDERABLES Final Resu lt * CANCER ANTIGEN 125 (06/07/2024 1:00 PM CHAR CONVEYOR TENDER) Blood us Davi Lion MD CHEMISTRY ORDERABLES Final Resu lt * COMPREHENSIVE METABOLIC PANEL (06/07/2024 11:14 AM CHAR CONVEYOR TENDER) Blood us Davi Lion MD CHEMISTRY ORDERABLES Final Resu lt from Last 3 Months Insurance [facility] [id number] Care Teams Production Broaching Machine Operator Relationship Specialty Start Date End Date Nory Pabon MD [address] [place] [address] PCP - General Family Practice 08/29/22
--- OUTSIDE RECORDS SUMMARY | 2024-06-27 16:11 | XMS_ITS | Continuity of Care Document ---
Author Organization [facility] Address [address] [place] [address] [place] [address] Phone Care Team Providers Care Lathing Supervisor Name Role Phone Regina Ortiz Unavailable Unavailable Procedures Procedure Date Office/outpatient Visit, Est Office/outpatient Visit, Est Eye Exam Established Pt Eye Exam, New Patient Eye Exam & Treatment Visual Field Examination(s) Visual Field Examination(s) Office/outpatient Visit, Est Advance Directives Directive Yes / No Effective Date File Name No Information Encounters Encounter Description Practice Location Reason(s) For Visit Diagnoses Date Provider Providers Copied on Encounter Office/[place]pat ient Visit[place] [facility] [place] [address] [place] [address] [address], [place], [place], [id number], [place] tel:[phone] [facility] No Information 8 0 Diana May [address] , [address], [place], [address], [place]. tel:[phone] Office/outpat ient Visit, [facility] [place] [address], [place], [place], [id number], [place] tel:[phone] [facility] No Information Mar-2 3-201 0 Diana May [address], [place], [place], [facility][note 3], . tel:[phone] [facility], [address] [place] [address] [address], [place], [place], [id number], tel:[phone] [facility] No Information Dec-2 6-200 8 Diana May [address], [place], [place], [facility][note 3], . tel:[phone] [facility], [address] [place] [address] [address], [place], [place], [id number], [place] tel:[phone] [facility] No Information Nov-1 -200 8 Diana May [address], [place], [place], [facility][note 3], . tel:[phone] [facility], [address] [place] [address] [address], [place], [place], [id number], [place] tel:[phone] [facility] No Information Oct-0 9-200 7 Diana May [address], [place], [place], [facility][note 3], . tel:[phone] [facility], [address], [place], [place], [id number], [place] tel:[phone] [facility] No Information May-0 1-200 7 Diana May [address] , [address], [place], [place], [facility][note 3], [place]. tel:[phone] Referring Provider: Regina Garcia, [address], [place], [place], [facility][note 3]. tel:[phone] [facility], [address] [place] [address] [address], [place], [place], [id number], [place] tel:[phone] [facility] No Information Apr-1 6-200 7 Diana May [address], [place], [address], [place]. tel:[phone] Referring Provider: Regina Garcia, [address] [facility] [address], [place], [address]. tel:[phone] Office/outpat ient Visit, [facility] [address], [place], [place], [id number], [place] tel:[phone] [facility] No Information Diana Tapia. [address] [facility] , [address], [place], [address], [place]. tel:[phone] Family History Family Member Type Diagnosis Age At Onset No Information Payers Payer name Insurance type Covered alliance party ID Authoriza tion(s) No Information Social History Type Description Quantity Date Captured Comments Sex Female Smoking Status No Information Chief Complaint And Reason For Visit No Information Reason For Referral Reason For Referral No Information History Of Present Illness Encounter Date Complaint History Of Prese nt Illness No Information Functional Status Date Functional Assessmen t No Information Instructions Date Instruction Additional Infor mation No Information Assessments Type Assessment Date No Information Patient Care Teams Name Effective Dates (start - stop) Status Members No Information
--- OUTSIDE RECORDS SUMMARY | 2024-06-27 16:11 | XMS_ITS | Clinical Summary ---
Author Organization [facility] [place] [address] Address [address] [place] [address] Care Team Providers Care Crusher And Blender Operator Name Role Phone Nory Pabon MD Primary Care Provider [phone] Perry Leyva MD Unavailable [phone] Allergies Active Allergy Reactions Criticality Noted Date Comments Iodinated Contrast Media Itching Low 12/17/2023 Medications oxybutynin XL (DITROPAN-XL) 5 mg 24 hr tablet 11/15/19 22 Active calcium carbonate (TUMS) 500 mg (200 mg elemental calcium) chewable tablet Take 2 tablet/chew tab (1,000 mg total) by mouth 3 (three) times a day as needed for indigestion or heartburn 01/08/20 24 025 Active epoetin bernard-epbx (RETACRIT) (10,000 unit/mL) solutionIndication s:Anemia due to Renal Failure Inject 1 mL (10,000 Units total) under the skin 3 (three) times a week 01/08/20 24 Active Additional Information Patient not taking.Reported on 04/19/2024 levothyroxine (SYNTHROID) 100 mcg tablet Take 1 tablet (100 mcg total) by mouth emr trainer before breakfast 01/09/20 24 Active calcitRIOL (ROCALTROL) 0.25 mcg capsule Take 1 capsule (0.25 mcg total) by mouth daily Active ferrous sulfate 325 mg (65 mg of elemental iron) tablet Take 1 tablet (325 mg total) by mouth every 12 hours 01/13/20 24 Active metoprolol XL (TOPROL-XL) 50 mg extended release tablet Take 1 tablet (50 mg total) by mouth daily 02/11/20 24 Active potassium chloride ER 20 mEq CR tablet 03/03/20 24 Active allopurinoL (ZYLOPRIM) 300 mg tablet Take 1 tablet (300 mg total) by mouth daily 01/13/20 24 Active diltiazem LA (CARDIZEM LA) 180 mg 24 hr tabletIndications: Hypertrophic obstructive cardiomyopathy ([facility]) (HCC) Take 1 tablet (180 mg total) by mouth daily 90 tablet 3 04/19/20 24 025 Active Active Problems Problem Noted Date Diagnosed Date Type 2 diabetes mellitus wit hout complication, without long-term current use of insulin ([facility]) 01/24/2024 Assessment & Plan (01/24/2024 2:00 PM CDT): HA1c 8.2%, did not require inpatient insulin, continue daily tradjenta 5mg with daily accuechecks while in rehab MICHAEL on CPAP 01/24/2024 Assessment & Plan (01/24/2024 2:01 PM CDT): Continue HS per home settings Acquired hypothyroidism 01/24/2024 Assessment & Plan (01/24/2024 2:03 PM CDT): Continue home dose synthroid 100mcg ESRD (end stage renal disease) on dialysis 01/17 Assessment & Plan (01/24/2024 2:04 PM CDT): Urinating 1-2 times daily, may be able to transition back off HD, continue MWF for now at [facility] via tunnelled catheter chest wall Dr Leyva nephrology Continue calcitriol BARRY (acute kidney injury) 01/18/2024 Anemia 01/18/2024 Endometrial cancer ([facility]/HCC) 01/18/2024 Lethargic 01/18/2024 Pneumonia due to infectious organism 01/16/2024 Assessment & Plan (01/24/2024 1:51 PM CDT): With respiratory failure and sepsis requiring intubation, now stable on room air, continue to monitor BP and sats while in rehab with concurrent fluid overload newly on HD, abx and steroids complete, stable on exam today, continue PT/OT Assessment & Plan (01/16/2024 8:15 AM CDT): Improving and finish up antibiotics is weak from recent hospital stay we will see how she fares with physical and occupational therapy. Anemia due to chronic kidney disease, on chronic dialysis ([facility]) 01/16/2024 Assessment & Plan (01/24/2024 2:04 PM CDT): Likely due to CKD with baseline anemia, metatstatic CA, repeat CBC with admission labs, will need to transfuse for Hgb <6 or symptomatic, denies black or bloody stools today Continue PO iron and B12 Assessment & Plan (01/16/2024 8:15 AM CDT): Continue dialysis and epoetin. Improved by hospital discharge Essential hypertension 01/16/2024 Assessment & Plan (01/16/2024 8:16 AM CDT): Stable. Continue metoprolol History of endometrial cancer 01/16/2024 Assessment & Plan (01/24/2024 1:56 PM CDT): Stable at present follows with MD Lion, continue to monitor and trend labs while in rehab, keytimmy on hold Assessment & Plan (01/16/2024 8:16 AM CDT): We will follow up with specialists outpatient. Chronic bilateral low back pain without sciatica 01/16/2024 Assessment & Plan (01/16/2024 8:16 AM CDT): Stable. Physical and occupational therapy we will continue. Continue oxycodone Tylenol Heart failure 12/17/2023 Assessment & Plan (01/24/2024 2:04 PM CDT): With h/o HOCM, continue lasix, cardizem Hematochezia 12/16/2023 Hypertrophic obstructive cardiomyopathy (CMS/HCC ) 04/24/2014 Overview (08/21/2016): Hypertrophic obstructive cardiomyopathy Assessment & Plan (01/24/2024 2:02 PM CDT): Follows with Dr Guaman, EF 65% on recent echo, continue low salt diet, monitor weights; lasix 20mg daily Encounters Date Type Department Care Team Description 05/09/2024 11:00 AM STEAM FITTER Office Visit [facility] Card[facility] [address] [place] [address] [place] [phone] Shortness of breath (Primary Dx); Fatigue, unspecified type 04/19/2024 9:00 AM STEAM FITTER Office Visit [facility] [address] [place] [address] [place] [phone] Sonia Mcfarland NP Hypertrophic obstructive cardiomyopathy (CMS/HCC) (HCC) (Primary Dx); Hx of nausea and vomiting; Weight loss 04/05/2024 Orders Only [facility] [address] [place] [address] [place] [phone] Provider, MD Telly from Last 3 Months Surgical History Surgery Date Site/Laterality Comments COLONOSCOPY 01/01/2024 TUNNELED LINE PLACEMENT > 5 YEARS 01/06/2024 N/A Medical History Medical History Date Comments Hypertension Hypertension Diabetes mellitus (HCC) 11/2023 MICHAEL (obstructive sleep apnea) Hypothyroidism HOCM (hypertrophic obstructive cardiomyopathy) ( CMS/HCC) (HCC) CKD (chronic kidney disease) GERD (gastroesophageal reflux disease) Gout Uterine cancer (CMS/HCC) (HCC) Thoracic aortic aneurysm (TAA) (HCC) monitored Social History Tobacco Use Types Packs/Day Years Used Date Smoking Tobacco: Never Smokeless Tobacco: Never Tobacco Cessation:Counseling Given: Not Answered Alcohol Use Standard Drinks/Week Comments No 0 (1 standard drink = 0.6 oz pur e alcohol) [facility] Utilities Answer Date Recorded In the past 12 months has OP3Nvoice, gas, oil, or water M_SOLUTION threatened to shut off services in your home? No 01/19/2024 Social Connection and Isolat ion Panel [NHANES] Answer Date Recorded In a typical week, how many times do you talk on the phone with family, friends, or neighbors? More than three times a week 01/19/2024 How often do you get togethe r with friends or relatives? More than three times a week 01/19/2024 How often do you attend chur ch or scientology services? 1 to 4 times per year 01/19/2024 Do you belong to any clubs o r organizations such as buddhist groups, unions, fraternal or athletic groups, or school groups? No 01/19/2024 How often do you attend meet ings of the clubs or organizations you belong to? Never 01/19/2024 Are you , , di vorced, , never , or living with a partner? 01/19/2024 AUDIT-C Answer Date Recorded Q1: How often do you have a drink containing alcohol? Never 01/18/2024 Q2: How many drinks containi ng alcohol do you have on a typical day when you are drinking? Patient does not drink Q3: How often do you have si x or more drinks on one occasion? Never 01/18/2024 Overall Financial Resource Strain (CARDIA) Answe r Date Recorded How hard is it for you to pa y for the very basics like food, housing, medical care, and heating? Not hard at all 01/19/2024 Hunger Vital Sign Answer Date Recorded Within the past 12 months, y ou worried that your food would run out before you got the money to buy more. Never true 01/19/20 24 Within the past 12 months, t he food you bought just didn't last and you didn't have money to get more. Never true 01/19/2024 PRAPARE - Transportation Answer Date Re corded In the past 12 months, has l ack of transportation kept you from medical appointments or from getting medications? No 07/2023 In the past 12 months, has l ack of transportation kept you from meetings, work, or from getting things needed for daily living? No 01/19/2024 Housing Stability Vital Sign Answer Arslan e Recorded In the last 12 months, was t here a time when you were not able to pay the mortgage or rent on time? No 01/19/2024 In the past 12 months, how m any times have you moved where you were living? 0 01/19/2024 At any time in the past 12 m [facility], were you homeless or living in a usp (including now)? No 01/19/2024 Personal Safety Answer Date Recorded Have you ever been in or are you currently in a harmful physical or emotional relationship or is someone making you feel afraid or unsafe? Denies 01/18/2024 Comments No Sex and Gender Information Value Date Recorded Sex Assigned at Not on file Legal Sex Female 2:20 AM STEAM FITTER Gender Identity Not on file Sexual Orientation Not on file Obstetrics History Last Filed Vital Signs Vital Sign Reading Time Taken Comments Blood Pressure 114/86 05/09/2024 11:01 AM STEAM FITTER Pulse 75 05/09/2024 11:01 AM STEAM FITTER Temperature 36.5 C (97.7 F) 01/25/2024 11:18 AM CDT Respiratory Rate 18 01/25/2024 11:18 AM CDT Oxygen Saturation 99% 05/09/2024 11:01 AM STEAM FITTER Inhaled Oxygen Concentration - - Weight 73.5 kg (162 lb) 04/19/2024 9:17 AM STEAM FITTER Height 177.8 cm (5' 10 ) 04/19/2024 9:17 AM STEAM FITTER Body Mass Index 23.24 04/19/2024 9:17 AM STEAM FITTER Plan of Treatment Health Maintenance Due Date Last Done Comments Albumin Creatinine Ratio, Urine 1950 Breast Cancer Screening-Mammogram 1950 Depression Screening 1950 Osteoporosis Screening-Bone Density Scan 1950 Dilated Eye Exam 1950 Foot Exam 1950 Zoster Vaccine (1 of 2) 2002 Well Visit 65+ 2017 Pneumococcal vaccine 65+ (2 of 2 - PCV) 05/13/2019 05/13/2018 DTaP/Tdap/Td Vaccine (2 - Td or Tdap) 07/29/2022 07/29/2012, 09/27/2002 Influenza Vaccine (#1) 2024 02/17/2022, 2018 Hemoglobin A1C 06/20/2024 12/19/2023 Lipid Panel 12/03/2024 12/04/2023, 06/2021, 12/11/2020, Additional history exists Fall Risk Assessment 01/24/2025 01/25/2024 eGFR 01/24/2025 01/25/2024, 12/2023, 01/23/2024, Additional history exists Colon Cancer Screening-Colonoscopy 12/31/2033 01/01/2024 Hepatitis B Screening Completed 12/23/2023 Hepatitis C Screening Completed 12/23/2023 Colon Cancer Screening-CT Colonography Discontinued 01/01/2024 Colon Cancer Screening-DNA Stool Discontinued 01/01/20 Colon Cancer Screening-FIT Discontinued 01/01/2024 Colon Cancer Screening-Sigmoidoscopy Discontinued 01/01/2024 Medical Devices Implanted Type Area Paper Products Printer Device Identifier Shelf Expiration Date Model / Serial / Lot Qoof Duramax Vascpak Safesheath D-Pro 15.5fr 28cm Kit Catheter [id number] - [id number] Implanted:Qty: 1 on 01/06/2024 at [facility] [employer] 01/15/2026 [id number] 95 / / [id number] Procedures Procedure Name Priority Date/Time Associated Diagnosis Comments EGFR Routine 01/25/2024 2:47 AM CDT COLONOSCOPY 01/01/2024 1:29 PM CDT HEPATITIS PANEL, ACUTE STAT 12/23/2023 11:54 AM CDT HEMOGLOBIN A1C Add-On 12/19/2023 4:11 AM CDT LIPID PANEL Routine 12/04/2023 3:08 PM CDT from Last 3 Months or Most Recently Relevant to Health Maintenance Results * (ABNORMAL) eGFR (01/25/2024 2:47 AM CDT) eGFR 24(L) >=60 mL/min/1. 73 m2 Comment: Interpretive Data Reference Interval Normal >/= 90 mL/min/1.73m2 Mildly decreased* 60 - 89 mL/min/1.73m2 Mildly to moderately decreased 45 - 59 mL/min/1.73m2 Moderately to severely decreased 30 - 44 mL/min/1.73m2 Severely decreased 15 - 29 mL/min/1.73m2 Kidney Failure < 15 mL/min/1.73m2 *Relative to young adult level Estimated glomerular filtration rate is determined by the 2020 CKD-EPI equation recommended by the National Kidney Foundation (A Unifying Approach to GFR Estimation: Recommendations of the NKF-ASK Task Force on Reassessing the Inclusion of Race in Diagnosing Kidney Disease, JASN 2020). The CKD-EPI equation should not be used for patients with unstable renal function and has not been validated in children and those over 70. Current interpretive data was last reviewed 2021. Blood 01/25/2024 2:47 AM CDT 01/25/2024 2:52 AM CDT us Jose Willis MD LAB BLOOD ORDERABLES Fi nal Result [facility] [address] [facility] Department [place] [address] * Colonoscopy (01/01/2024 1:29 PM CDT) Anatomical Region Laterality Modality Other Narrative Procedure Note Yusuf Alicea MD - 01/01/2024 1:29 PM CDT [facility] Endoscopy Lab Patient Name: Rosalva Marina Procedure Date: 01/01/2024 1:29 PM Date of : 1950 Admit Type: Inpatient Age: 73 Gender: Female Note Status: Finalized Attending MD: Yusuf Alicea M.D. Procedure Date: 01/01/2024 Procedure: Colonoscopy Indications: Hematochezia Providers: Yusuf Alicea M.D., Sonia WhiteLUMP INSPECTOR (Anesthesia Staff), Codi Mock RN, Carlene, Socket Welder Helper Referring MD: Carmen Cardenas Medicines: Monitored Anesthesia Care Complications: No immediate complications. Estimated Blood Loss: Estimated blood loss was minimal. Procedure: Pre-Anesthesia Assessment: - Prior to the procedure, a History and Physicalwas performed, and patient medications and allergieswere reviewed. The patient is competent. The risks and benefits of the procedure and the sedation optionsand risks were discussed with the patient. Allquestions were answered and informed consent was obtained. Patient identification and proposed procedure were verified by the physician, the nurse and the territory sales consultant in the procedure room. Mental Status Examination: alert and oriented. AirwayExamination: normal oropharyngeal airway and neck mobility. Respiratory Examination: clear to auscultation. CV Examination: normal. Prophylactic Antibiotics: The patient does not require prophylactic antibiotics. Prior Anticoagulants: The patient has taken no anticoagulant or antiplatelet agents. ASA Grade Assessment: III - A patient with severe systemic disease. After reviewing the risks and benefits,the patient was deemed in satisfactory condition to undergo the procedure. The anesthesia plan was touse monitored anesthesia care (MAC). Immediately priorto administration of medications, the patient was re-assessed for adequacy to receive sedatives. The heart rate, respiratory rate, oxygen saturations, blood pressure, adequacy of pulmonary ventilation,and response to care were monitored throughout the procedure. The physical status of the patient was re-assessed after the procedure. - The risks and benefits of the procedure and the sedation options and risks were discussed with the patient. All questions were answered and informed consent was obtained. After I obtained informed consent, the scope was passed under direct vision. Throughout theprocedure, the patient's blood pressure, pulse, and oxygen saturations were monitored continuously. The scopewas passed under direct vision. The Colonoscope was introduced through the anus and advanced to the the cecum, identified by appendiceal orifice andileocecal valve. The colonoscopy was performed without difficulty. The patient tolerated the procedurewell. The quality of the bowel preparation was fairexcept the rectum was poor, the sigmoid colon was unsatisfactory and the descending colon was unsatisfactory. The bowel preparation used wasPlenvu via split dose instruction. Findings: Multiple small and large-mouthed diverticula were found in the entire colon. There was no evidence of diverticular bleeding. A 2 mm polyp was found in the sigmoid colon. The polyp was sessile.The polyp was removed with a jumbo cold forceps. Resection and retrieval were complete. Estimated blood loss was minimal. A large amount of semi-liquid stool was found in the rectum, in the sigmoid colon and in the descending colon, interfering with visualization. The exam was otherwise without abnormality on direct and retroflexion views. Impression: - Moderate diverticulosis in the entire examined colon. There was no evidence of diverticularbleeding. - One 2 mm polyp in the sigmoid colon, removed witha jumbo cold forceps. Resected and retrieved. - Stool in the rectum, in the sigmoid colon and inthe descending colon. - The examination was otherwise normal on directand retroflexion views. - Suboptimal prep. Recommendation: - Await pathology results. - High fiber diet. - Monitor Hct - Repeat colonoscopy is not recommended. Procedure Code(s): --- Professional --- 43675, Colonoscopy, flexible; with biopsy, singleor multiple Diagnosis Code(s): --- Professional --- D12.5, Benign neoplasm of sigmoid colon K92.1, Melena (includes Hematochezia) K57.30, Diverticulosis of large intestine without perforation or abscess without bleeding CPT copyright 2020 [employer]. All rights reserved. The codes documented in this report are preliminary and upon social work nurse reviewmay be revised to meet current compliance requirements. Electronically signed by Olayiwola Olagbegi, M.D. Yusuf Alicea M.D. 01/01/2024 2:15:11 PM Number of Addenda: 0 Note Initiated On: 01/01/2024 1:29 PM Yusuf Alicea MD ENDOSCOPY PROCEDURES Fi nal Result * Hepatitis panel, acute Blood (12/23/2023 11:54 AM CDT) Hep A IgM Nonreactive Nonreactive Comment: Interpretive Data: If Hep A IgM Ab is reported as Equivocal, a new sample should be drawn in two weeks for testing. Current interpretive data was last revised on 19. Hep B core IgM Nonreactive Nonreactive [facility] Comment: Interpretive Data If HepB Core IgM Ab is reported as Equivocal, a new sample should be drawn in two weeks for testing. Current interpretive data was last revised on 19. Hep C Ab Nonreactive Nonreactive [facility] Comment: Interpretive Data Nonreactive: Antibodies to HCV not detected. Does NOT exclude the possibility of recent exposure to HCV. Equivocal: Equivocal for HCV antibodies. Supplemental molecular testing will be automatically performed to determine infection status in accordance with current CDC screening recommendations. Reactive: Positive for HCV antibodies. This may represent current or past HCV infection. Supplemental molecular testing will be automatically performed to determine current infection status in accordance with current CDC screening recommendations. Interpretive data was last revised on 2019. HepBsAg Nonreactive Nonreactive [facility] Blood 12/23/2023 11:5 4 AM CDT 12/23/2023 12:12 PM CDT Ping Funez MD LAB MICROBIOLOGY - GENERAL OR DERABLES Final Result [facility] [address] Department [place] [address] * (ABNORMAL) Hemoglobin A1c (12/19/2023 4:11 AM CDT) Hgb A1C 8.2(H) 4.0 - 5.6 % Estimated Average Glucose 189 mg/dL [facility] Comment: The ADA recommends reporting an estimated Average Glucose (eAG) with all Hemoglobin A1c results using the equation derived from a study of 507 normal and diabetic adults. Minority populations were underrepresented and children were not included. (Diabetes Care 31:1649-4357, 2008). The eAG is not equivalent to a fasting glucose. Blood 12/19/2023 4:11 AM CDT 12/19/2023 7:28 AM CDT Marty Clarke MD LAB BLOOD ORDERABLE S Final Result [facility] [address] [place] [address] * Lipid panel (12/04/2023 3:08 PM CDT) SCRIBED Cholesterol, Total 171 <200 EXTERNAL LAB SCRIBED HDL 56 >40 EXTERNAL LAB SCRIBED LDL 80 <100 EXTERNAL LAB SCRIBED Triglycerides 217 <150 EXTERNAL LAB Blood Historical Provider LAB BLOOD ORDERABLES Edit ed Result - Final EXTERNAL LAB from Last 3 Months or Most Recently Relevant to Health Maintenance Insurance [facility] MEDICARE Address: [facility] [address] [place] [address] [facility]ICARE [facility] MEDICARE Address: [facility] [address] [place] [address] Advance Directives For more information, please contact: [phone] Documents on File Type Date Recorded Patient Turn Out Worker Expl anation ADVANCE DIRECTIVE 01/26/2024 4:25 PM POLST - Phys Order for PT Preferences * Full Code (Latest Code Status on File) Date Activated Date Inactivated Comments 01/18/2024 6:52 PM 01/25/2024 8:13 PM * Full Code Date Activated Date Inactivated Comments 12/17/2023 2:54 PM 01/12/2024 9:23 PM Care Teams Crusher And Blender Operator Relationship Specialty Start Date End Date Nory Pabon MD PCP - General Family Medicine 06/19/22 Perry Leyva MD Consulting Physician Nephrology 01/25/24
--- OUTSIDE RECORDS SUMMARY | 2024-06-27 16:11 | XMS_ITS | Encounter Summary ---
Author Organization [facility] Address [address] [place] [address] Phone Care Team Providers Care Pipeline Gang Supervisor Name Role Phone Aminta Enamorado MD Primary Care [facility] Encounter Details Date Type Department Care Team (Late st Contact Info) Description 03/11/2024 [facility] [address] [place] [address] Perry Leyva MD [facility] [address] [address] Type 2 diabetes mellitus without complications (HCC); End stage renal disease (HCC); Chronic kidney disease, unspecified Social History Tobacco Use Types Packs/Day Years Used Date Smoking Tobacco: Never Assessed Comments Unknown Sex and Gender Information Value Date Recorded Sex Assigned at Not on file Legal Sex Female 9:34 PM CDT Gender Identity Not on file Sexual Orientation Not on file documented as of this encounter Plan of Treatment Not on file documented as of this encounter Procedures Procedure Name Priority Date/Time Associated Diagnosis Comments CBC WITH AUTO DIFFERENTIAL Routine 03/11/2024 1:15 PM CDT Type 2 diabetes mellitus without complications (HCC) End stage renal disease (HCC) Chronic kidney disease, unspecified COMPLETE BLOOD COUNT (CBC) WITH DIFF Routine 03/11/2024 1:15 PM CDT Type 2 diabetes mellitus without complications (HCC) End stage renal disease (HCC) Chronic kidney disease, unspecified BASIC METABOLIC PANEL W/ CALCIUM TOTAL Routine 03/11/2024 1:15 PM CDT Type 2 diabetes mellitus without complications (HCC) End stage renal disease (HCC) Chronic kidney disease, unspecified documented in this encounter Results * (ABNORMAL) CBC WITH AUTO DIFFERENTIAL (03/11/2024 1:15 PM CDT) WBC 7.20 4.00 - 12.00 10(3)/mcL 03/11/2024 2:17 PM CDT [facility] RBC 3.62(L) 3.80 - 5.30 10(6)/mcL 03/11/2024 2:17 PM CDT [facility] HEMOGLOBIN (HGB) 10.9(L) 12.0 - 15.8 g/dL 03/11/2024 2:17 PM CDT [facility] HEMATOCRIT (HCT) 33.0(L) 36.0 - 47.0 % 03/11/2024 2:17 PM CDT [facility] MCV 91.2 82.0 - 96.0 fL 03/11/2024 2:17 PM CDT [facility] MCH 30.1 26.0 - 34.0 pg 03/11/2024 2:17 PM CDT [facility] MCHC 33.0 31.0 - 36.0 g/dL 03/11/2024 2:17 PM CDT [facility] PLATELET COUNT 158 140 - 440 10(3)/mcL 03/11/2024 2:17 PM CDT [facility] RDW 13.2 11.8 - 15.5 % 03/11/2024 2:17 PM CDT [facility] MPV 11.1 9.7 - 12.4 fL 03/11/2024 2:17 PM CDT [facility] NEUTROPHILS 65.3 47.0 - 73.0 % 03/11/2024 2:17 PM CDT [facility] LYMPHOCYTES 22.4 18.0 - 42.0 % 03/11/2024 2:17 PM CDT [facility] MONOCYTES 11.1 4.0 - 12.0 % 03/11/2024 2:17 PM CDT [facility] EOSINOPHILS 0.6 0.0 - 5.0 % 03/11/2024 2:17 PM CDT [facility] BASOPHILS 0.6 0.0 - 1.0 % 03/11/2024 2:17 PM CDT [facility] ABSOLUTE NEUTROPHILS 4.71 1.60 - 7.70 10(3)/mcL 03/11/2024 2:17 PM CDT [facility] ABSOLUTE LYMPHOCYTES 1.61 1.30 - 3.20 10(3)/mcL 03/11/2024 2:17 PM CDT [facility] ABSOLUTE MONOCYTES 0.80 0.20 - 1.00 10(3)/mcL 03/11/2024 2:17 PM CDT [facility] ABSOLUTE EOSINOPHIL 0.04 0.00 - 0.40 10(3)/mcL 03/11/2024 2:17 PM CDT [facility] ABSOLUTE BASOPHILS 0.04 0.00 - 0.10 10(3)/mcL 03/11/2024 2:17 PM CDT [facility] NRBC PER 100 WBC 0 03/11/20 2:17 PM CDT [facility] Blood Venipuncture / Unknown 03/11/2024 1:15 PM CDT 03/11/2024 2:14 PM CDT us Perry Leyva MD HEMATOLOGY ORDERABLES Final R esult [facility] [address] [place] [address] * (ABNORMAL) BASIC METABOLIC PANEL W/ CALCIUM TOTAL (03/11/2024 1:15 PM CDT) SODIUM 146(H) 136 - 145 mmol/L 03/11/2024 2:44 PM CDT [facility] POTASSIUM 3.5 3.5 - 5.1 mmol/L 03/11/2024 2:44 PM CDT [facility] CHLORIDE 114(H) 98 - 107 mmol/L 03/11/2024 2:44 PM CDT [facility] CO2, VENOUS 24 22 - 30 mmol/L 03/11/2024 2:44 PM CDT [facility] ANION GAP 11.5 <18.0 mmol/L 03/11/2024 2:44 PM CDT [facility] GLUCOSE 110(H) 70 - 99 mg/dL 03/11/2024 2:44 PM CDT [facility] BUN 21(H) 10 - 20 mg/dL 03/11/2024 2:44 PM CDT [facility] CREATININE, BLOOD 1.39(H) 0.60 - 1.00 mg/dL 03/11/2024 2:44 PM CDT [facility] BUN/CREATININE RATIO 15 12 - 20 ratio 03/11/2024 2:44 PM CDT [facility] CALCIUM 8.7 8.7 - 10.5 mg/dL 03/11/2024 2:44 PM CDT [facility] GFR, ESTIMATED 41(L) >=60 03/11/2024 2:44 PM CDT [facility] Comment: Creatinine Clearance is the preferred criteria for selecting drug dose adjustments in renally impaired patients. The GFR is provided as additional pertinent clinical information. GFR is reported in mL/min/1.73 sq m. Calculation based on the Chronic Kidney Disease Epidemiology Collaboration (CKD- EPI) equation refit without adjustment for race. GFR, EST. 45(L) >=60 2:44 PM CDT [facility] GFR, EST. NONAFRICAN 37(L) >=60 03/11/2024 2:44 PM CDT [facility] Blood Venipuncture / Unknown 03/11/2024 1:15 PM CDT 03/11/2024 2:14 PM CDT us Perry Leyva MD CHEMISTRY ORDERABLES Final Re sult [facility] [place] [address] documented in this encounter Visit Diagnoses Diagnosis Type 2 diabetes mellitus without complications (HCC) Type II or unspecified type diabetes mellitus without mention of complication, not stated as uncontrolled End stage renal disease (HCC) End stage renal disease Chronic kidney disease, unspecified documented in this encounter Care Teams Pipeline Gang Supervisor Relationship Specialty Start Date End Date Aminta Enamorado MD [address] [place] [address] PCP - General Family Medicine 03/31/18 documented as of this encounter
--- OUTSIDE RECORDS SUMMARY | 2024-06-27 16:11 | XMS_ITS | Clinical Summary ---
Author Organization [facility] Address [address] [facility] [address] [place] [address] Phone Care Team Providers Care Security Escort Name Role Phone Aminta Enamorado MD Primary Care Provi reina Allergies Active Allergy Reactions Criticality Noted Date Comments Iodine Itching Medium 03/09/2024 Medications folic acid (FOLVITE) 1 MG Tablet Take 1 mg by mouth daily. rx [id number] Active levothyroxine (SYNTHROID) 100 MCG Tablet Take 100 mcg by mouth daily. rx [id number] Active oxybutynin (DITROPAN) 5 MG Tablet Take 5 mg by mouth daily. rx [id number] Active PANTOPRAZOLE SODIUM PO Take 40 mg by mouth daily. rx [id number] Active metoprolol tartrate (LOPRESSOR) 25 MG Tablet Take 25 mg by mouth 2 times daily. rx [id number] Active potassium chloride (KLOR-CON) 20 MEQ Pack Take 20 mEq by mouth daily. rx [id number] Active dilTIAZem HCl ER 360 MG TABLET SR 24 HR Take 1 Tablet by mouth daily. [id number] Active allopurinol (ZYLOPRIM) 300 MG Tablet Take 300 mg by mouth daily. rx [id number] Active calcitRIOL (ROCALTROL) 0.25 MCG Capsule Take 0.25 mcg by mouth daily. [id number] Active Encounters Date Type Department Care Team Description 04/18/2024 2:30 PM [facility] Visit [address] [address] Naomi Flores, PT PT - OASIS DISCHARGE 04/13/2024 9:30 AM [facility] Visit [address] [address] Su Khan, MACHINE CLOTH EXAMINER PT - HOME VISIT 04/11/2024 9:30 AM [facility] Care Visit [address] [address] Su Khan, MACHINE CLOTH EXAMINER PT - HOME VISIT 04/08/2024 1:00 PM [facility] Home Care Visit [address] [address] Unique Callahan OT OT - DISCIPLINE DISCHARGE 04/07/2024 2:30 PM [facility] Home Care Visit [address] [address] Su Khan, MACHINE CLOTH EXAMINER PT - HOME VISIT 04/06/2024 Home Care Visit [address] [address] Naomi Flores, PT TELEPHONE ENCOUNTER 04/05/2024 9:30 AM [facility] Home Care Visit [address] [address] Su Khan, MACHINE CLOTH EXAMINER PT - HOME VISIT 04/05/2024 Home Care Visit [address] [address] Naomi Flores, PT TELEPHONE ENCOUNTER 04/01/2024 12:30 PM [facility] Home Care Visit [address] [address] Skylar Field OTA OT - HOME VISIT 04/01/2024 Home Care Visit [address] [address] Skylar Field OTA CASE COMMUNICATION 03/31/2024 9:30 AM [facility] Home Care Visit [address] [place] [address] Su Khan, MACHINE CLOTH EXAMINER PT - HOME VISIT 03/30/2024 12:30 PM [facility] [address] [place] [address] Skylar Field OTA OT - HOME VISIT 03/30/2024 [facility] [address] [place] [address] Skylar Field OTA CASE COMMUNICATION 03/29/2024 2:30 PM [facility] [address] [place] [address] Naomi Flores, PT PT - REASSESSMENT from Last 3 Months Social History Tobacco Use Types Packs/Day Years Used Date Smoking Tobacco: Never Assessed Comments Unknown Sex and Gender Information Value Date Recorded Sex Assigned at Not on file Legal Sex Female 9:34 PM CDT Gender Identity Not on file Sexual Orientation Not on file Last Filed Vital Signs Vital Sign Reading Time Taken Comments Blood Pressure 126/86 04/18/2024 2:22 PM [facility] Pulse 68 04/18/2024 2:22 PM [facility] Temperature 36.8 C (98.2 F) 04/18/2024 2:22 PM [facility] Respiratory Rate 18 04/18/2024 2:22 PM [facility] Oxygen Saturation 98% 04/18/2024 2:22 PM [facility] Inhaled Oxygen Concentration - - Weight 73 kg (161 lb) 04/18/2024 2:22 PM [facility] Height 177.8 cm (5' 10 ) 03/11/2024 3:27 PM CDT Body Mass Index 23.1 03/11/2024 3:27 PM CDT Plan of Treatment Health Maintenance Due Date Last Done Comments DEXA Bone Density 1950 Hepatitis C Virus (HCV) Screening 1950 Cologuard 2002 Mammogram 2002 Zoster Immunization (1 of 2) 2002 Pneumococcal Immunization (50+ years) (2 of 2 - PCV) 05/13/2019 05/13/2018 Influenza Immunization (#1) 2024 1005/2021, 02/17/2022, 05/03/2021, Additional history exists SARS-COV-2 Immunization ( season) 2024 05/03/2021, 08/08/2020, 07/12/2020 Immunochemical Fecal Occult Blood 01/11/2025 01/12/2024 Respiratory Syncytial Virus (RSV) Immunization (Adult) (1 - 1-dose 75+ series) 08/18/2027 Colonoscopy 12/31/2028 01/01/2024, 05/03/2018 Colorectal Cancer Screening 12/31/2028 01/01/2024, 05/03/2018 DTaP/Tdap/Td Immunization Discontinued 07/29/2012, TdaP Immunization Completed 07/29/2012 Pneumococcal Immunization Combined Discontinued 05/13/2018 Hepatitis B Immunization Aged Out No longer eligible based on patient's age to complete this topic Meningococcal Immunization (ACWY) Aged Out No longer eligible based on patient's age to complete this topic Rotavirus Immunization Aged Out No lo nger eligible based on patient's age to complete this topic Procedures Procedure Name Priority Date/Time Associated Diagnosis Comments COLONOSCOPY Routine 05/03/2018 from Last 3 Months or Most Recently Relevant to Health Maintenance Results * COLONOSCOPY (05/03/2018) Jean-Pierre Mejia DO PROCEDURE/MINOR SURGICAL ORDERA BLES Final Result from Last 3 Months or Most Recently Relevant to Health Maintenance Insurance [address] [place] [id number] MEDICARE C [facility] Advance Directives * Full Code (Latest Code Status on File) Date Activated Date Inactivated Comments 03/10/2024 8:19 AM Healthcare Agents on File Name Relationship Healthcare Agent Relationshi p Communication Patel Marina Spouse Healthcare POA Care Teams Security Escort Relationship Specialty Start Date End Date Aminta Enamorado MD [address] [place] [address] PCP - General Family Medicine 03/31/18
--- OUTSIDE RECORDS SUMMARY | 2024-06-27 16:11 | XMS_ITS ---
Author Organization [facility] [address] Address [address] [place] [address] Care Team Providers Care Computer Network Specialist Name Role Phone Nory Pabon MD Primary Care Provider [phone] Peryr Leyva MD Unavailable [phone] Active Problems Problem Noted Date Diagnosed Date Type 2 diabetes mellitus wit hout complication, without long-term current use of insulin ([facility]) 01/24/2024 Assessment & Plan (01/24/2024 2:00 PM [...] off HD, continue MWF for now at [facility] via tunnelled catheter chest wall Dr Leyva nephrology Continue calcitriol BARRY (acute kidney injury) 01/18/2024 Anemia 01/18/2024 Endometrial cancer ([facility]) 01/18/2024 Lethargic 01/18/2024 Pneumonia due to infectious [...] to chronic kidney disease, on chronic dialysis ([facility]) 01/16/2024 Assessment & Plan (01/24/2024 2:04 PM [...] monitor and trend labs while in rehab, keytruda on hold Assessment & Plan (01/16/2024 8:16 [...] salt diet, monitor weights; lasix 20mg daily Current Oncology Plans No current plan information found. Past Plans No past plan information found. Radiation Treatments * No radiation treatments are documented for this patient in [facility]. Treatments may have been administered in another system. Lifetime Dose Tracking * Chemical Lifetime Dose Automatic Entry Manual Entr y Fluoro Time 9.5 minutes 9.5 minutes 0 minutes Air kerma at the reference point (Ka,r) 34.6 mGy 3 4.6 mGy 0 mGy
--- OUTSIDE RECORDS SUMMARY | 2024-06-27 16:11 | XMS_ITS | Encounter Summary ---
Author Organization [facility] [employer] [facility] Address [address] [place] [address] Care Team Providers Care Weigher Operator Name Role Phone Nory Pabon MD Primary Care Provider [phone] Encounter Details Date Type Department Care Team ([facility] Contact Info) Description 11/10/2022 Telephone [facility] [address] [place] [address] Davi Lion MD [address] [place] [address] [employer] [address] [place] [address] Social History Tobacco Use Types Packs/Day Years Used Date Smoking Tobacco: Never Smokeless Tobacco: Never Alcohol Use Standard Drinks/Week Comments Not Currently 0 (1 standard drink = 0.6 oz pur e alcohol) Comments Unknown Sex and Gender Information Value Date Recorded Sex Assigned at Not on file Legal Sex Female 3:55 PM CDT Gender Identity Not on file Sexual Orientation Not on file documented as of this encounter Plan of Treatment Upcoming Encounters Date Type Department Care Team ([facility] Contact Info) Description 09/20/2024 9:45 AM CDT Office Visit [facility] [address] [place] [address] Davi Lion MD [facility] [employer] [address] [place] [address] documented as of this encounter Visit Diagnoses Not on filedocumented in this encounter Care Teams Weigher Operator Relationship Specialty Start Date End Date Nory Pabon MD [address] [place] [address] PCP - General Family Practice 08/29/22 documented as of this encounter
--- OUTSIDE RECORDS SUMMARY | 2024-06-27 16:11 | XMS_ITS | Referral Summary ---
Author Organization [facility] [employer] Address [address] [facility] [place] [address] Care Team Providers Care Contract Negotiation Manager Name Role Phone Nory Pabon MD Primary Care Provider [phone] Source Comments [facility],non-owned Affiliates and Associated Physician Practices is amultiple site organization consisting of ambulatory clinics and hospital sitesin [place], [place], [place] and [place]. This disclosure is being madepursuant to the Care Everywhere program and may not contain all information available regarding this patient. Last updated 18.[facility] [employer] Allergies No known active allergies Medications * Be aware that medications may not be up to date on this document. Alwaysverify current medications with the patient. Medication Sig Dispensed Refills Start Date End Date Status allopurinol (Zyloprim) 300 MG tablet Take 1 (one) tablet by mouth once daily 05/23/2022 Active calcitriol (Rocaltrol) 0.25 MCG capsule Take 1 (one) capsule by mouth once daily 05/23/2022 Active dilTIAZem coated beads 24hr (Cardizem CD) 360 MG capsule Take 1 (one) capsule by mouth once daily 08/06/2022 Active FeroSul 325 (65 Fe) MG tablet Take 1 (one) tablet by mouth once daily 07/31/2022 Active metoprolol succinate XL 24hr (Toprol XL) 50 MG tablet Take 1 (one) tablet by mouth 3 times daily 05/23/2022 Active omeprazole (PriLOSEC) 20 MG capsule Take 1 (one) capsule by mouth once daily 07/07/2022 Active oxyBUTYnin CR 24hr (Ditropan-XL) 5 MG tablet Take 1 (one) tablet by mouth once daily 05/19/2022 Active Multiple Vitamins-Minerals (CENTRUM SILVER ULTRA WOMENS PO) Take 1 tablet by mouth once daily Active Fexofenadine HCl (DORETHA ALLERGY PO) Take 1 tablet by mouth once daily Active ibuprofen (Advil) 200 MG tablet Take 2 (two) tablets by mouth every 6 hours as needed for Pain Active fluticasone propionate (Flonase Allergy Relief) 50 MCG/ACT nasal spray [place] 2 (two) sprays into each nostril once daily Active polyethylene glycol 3350 (GlycoLax) 17 GM/SCOOP powder Take 17 (seventeen) g by mouth once daily Active Active Problems Problem Noted Date Diagnosed Date 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 01/19/2023 Immunizations Name Administration Dates Next Due INFLUENZA VACCINE 02/17/2022 Social History Tobacco Use Types Packs/Day Years Used Date Smoking Tobacco: Never Smokeless Tobacco: Never Alcohol Use Standard Drinks/Week Comments Not Currently 1 (1 standard drink = 0.6 oz pur e alcohol) socially Sex and Gender Information Value Date Recorded Sex Assigned at Female 10/29/2022 3:30 PM CDT Gender Identity Not on file Sexual Orientation Not on file Last Filed Vital Signs Vital Sign Reading Time Taken Comments Blood Pressure 106/76 08/12/2022 3:24 PM CDT Pulse 74 08/12/2022 3:24 PM CDT Temperature 36.4 C (97.5 F) 08/12/2022 3:24 PM CDT Respiratory Rate - - Oxygen Saturation 97% 08/12/2022 3:24 PM CDT Inhaled Oxygen Concentration - - Weight 97.1 kg (214 lb) 08/12/2022 3:24 PM CDT Height 177.8 cm (5' 10 ) 08/12/2022 3:24 PM CDT Body Mass Index 30.71 08/12/2022 3:24 PM CDT Plan of Treatment Not on file Care Teams Contract Negotiation Manager Relationship Specialty Start Date End Date Nory Pabon MD [address] [place] [address] PCP - General 07/24/22
--- OUTSIDE RECORDS SUMMARY | 2024-06-27 16:11 | XMS_ITS | Referral Summary ---
Author Organization [facility] [address] Address [address] [place] [address] Care Team Providers Care Whiskey Regauger Name Role Phone Nory Pabon MD Primary Care Provider [phone] Perry Leyva MD Unavailable [phone] Encounters Date Type Department Care Team Description 05/09/2024 11:00 AM RESPIRATORY THERAPIST ASSISTANT Office Visit [facility] Medical [facility] Cardiology [address] [place] [address] Shortness of breath (Primary Dx); Fatigue, unspecified type 04/19/2024 9:00 AM RESPIRATORY THERAPIST ASSISTANT Office Visit [facility] Cardiology [address] [place] [address] Sonia Mcfarland NP Hypertrophic obstructive cardiomyopathy (CMS/HCC) (HCC) (Primary Dx); Hx of nausea and vomiting; Weight loss 04/05/2024 Orders Only [facility] Medical [facility] Cardiology [address] [place] [address] ProviderTelly MD from Last 3 Months Allergies Active Allergy Reactions Criticality Noted Date [...] 1 tablet (100 mcg total) by mouth shoe ironer before breakfast 01/09/20 24 Active calcitRIOL (ROCALTROL) [...] mg 24 hr tabletIndications: Hypertrophic obstructive cardiomyopathy (CMS/HCC) (HCC) Take 1 tablet (180 mg total) by mouth daily 90 tablet 3 04/19/20 24 025 Active Active Problems Problem Noted Date Diagnosed Date Type 2 diabetes mellitus wit hout complication, without long-term current use of insulin (CMS/HCC) 01/24/2024 Assessment & Plan (01/24/2024 2:00 PM [...] off HD, continue MWF for now at [facility] via tunnelled catheter chest wall Dr Leyva nephrology Continue calcitriol BARRY (acute kidney injury) 01/18/2024 Anemia 01/18/2024 Endometrial cancer (CMS/HCC) 01/18/2024 Lethargic 01/18/2024 Pneumonia due to infectious [...] to chronic kidney disease, on chronic dialysis (CMS/HCC) 01/16/2024 Assessment & Plan (01/24/2024 2:04 PM [...] monitor and trend labs while in rehab, april on hold Assessment & Plan (01/16/2024 8:16 [...] salt diet, monitor weights; lasix 20mg daily Social History Tobacco Use Types Packs/Day Years Used Date Smoking Tobacco: Never Smokeless Tobacco: Never Tobacco Cessation:Counseling Given: Not Answered Alcohol Use Standard Drinks/Week Comments No 0 (1 standard drink = 0.6 oz pur e alcohol) [facility] Utilities Answer Date Recorded In the past 12 months has [employer], gas, oil, or water [employer] threatened to shut off services in your [...] week 01/19/2024 How often do you attend [facility] or episcopal services? 1 to 4 times per year 01/19/2024 Do you belong to any clubs o r organizations such as christianity groups, unions, fraternal or athletic groups, or [...] any time in the past 12 m [facility], were you homeless or living in a correction (including now)? No 01/19/2024 Personal Safety Answer Date Recorded Have you ever been in or are you currently in a harmful physical or emotional relationship or is someone making you feel afraid or unsafe? Denies 01/18/2024 Comments No Sex and Gender Information Value Date Recorded Sex Assigned at Not on file Legal Sex Female 2:20 AM RESPIRATORY THERAPIST ASSISTANT Gender Identity Not on file Sexual Orientation Not on file Last Filed Vital Signs Vital Sign Reading Time Taken Comments Blood Pressure 114/86 05/09/2024 11:01 AM RESPIRATORY THERAPIST ASSISTANT Pulse 75 05/09/2024 11:01 AM RESPIRATORY THERAPIST ASSISTANT Temperature 36.5 C (97.7 F) 01/25/2024 11:18 AM CDT Respiratory Rate 18 01/25/2024 11:18 AM CDT Oxygen Saturation 99% 05/09/2024 11:01 AM RESPIRATORY THERAPIST ASSISTANT Inhaled Oxygen Concentration - - Weight 73.5 kg (162 lb) 04/19/2024 9:17 AM RESPIRATORY THERAPIST ASSISTANT Height 177.8 cm (5' 10 ) 04/19/2024 9:17 AM RESPIRATORY THERAPIST ASSISTANT Body Mass Index 23.24 04/19/2024 9:17 AM RESPIRATORY THERAPIST ASSISTANT Plan of Treatment Not on file Medical Devices Implanted Type Area Special Ed Assistant Device Identifier Shelf Expiration Date Model / Serial / Lot [facility] [employer] Dur[employer] Vascpak Safesheath D-Pro 15.5fr 28cm Kit Catheter [id number] - [id number] Implanted:Qty: 1 on 01/06/2024 at [facility] [employer] [facility] 01/15/2026 [id number] / / [id number] Procedures Procedure Name Priority Date/Time Associated Diagnosis [...] MD LAB BLOOD ORDERABLES Fi nal Result [facility] [address] [facility] Department [place] [address] * Colonoscopy (01/01/2024 1:29 PM CDT) Anatomical Region Laterality Modality Other Narrative Procedure Note Yusuf Alicea MD - 01/01/2024 1:29 PM CDT [facility] Endoscopy Lab Patient Name: Rosalva Marina Procedure Date: 01/01/2024 1:29 PM Date of : 1950 Admit Type: Inpatient Age: 73 Gender: Female Note Status: Finalized Attending MD: Yusuf Alicea M.D. Procedure Date: 01/01/2024 Procedure: Colonoscopy Indications: Hematochezia Providers: Yusuf Alicea M.D., Sonia White CRNA (Anesthesia Staff), Codi Mock RN, Carlene, Spud Grader Referring MD: Carmen Cardenas Medicines: Monitored Anesthesia [...] by the physician, the nurse and the drying oven attendant in the procedure room. Mental Status Examination: [...] not recommended. Procedure Code(s): --- Professional --- 99740, Colonoscopy, flexible; with biopsy, singleor multiple Diagnosis Code(s): --- Professional --- D12.5, Benign neoplasm of sigmoid colon K92.1, Melena (includes Hematochezia) K57.30, Diverticulosis of large intestine without perforation or abscess without bleeding CPT copyright 2021 [employer]. All rights reserved. The codes documented in this report are preliminary and upon erp technical lead reviewmay be revised to meet current compliance requirements. Electronically signed by Yusuf Alicea M.D. Yusuf Alicea M.D. 01/01/2024 2:15:11 PM [...] 19. Hep B core IgM Nonreactive Nonreactive [facility] Comment: Interpretive Data If HepB Core IgM Ab is reported as Equivocal, a new sample should be drawn in two weeks for testing. Current interpretive data was last revised on 19. Hep C Ab Nonreactive Nonreactive [facility] Comment: Interpretive Data Nonreactive: Antibodies to HCV [...] last revised on 2019. HepBsAg Nonreactive Nonreactive [facility] Blood 12/23/2023 11:5 4 AM CDT 12/23/2023 12:12 PM CDT Ping Funez MD LAB MICROBIOLOGY - GENERAL OR DERABLES Final Result [facility] [address] [place] [address] * (ABNORMAL) Hemoglobin A1c (12/19/2023 4:11 AM CDT) Hgb A1C 8.2(H) 4.0 - 5.6 % Estimated Average Glucose 189 mg/dL [facility] Comment: The ADA recommends reporting an estimated Average Glucose (eAG) with all Hemoglobin A1c results using the equation derived from a study of 507 normal and diabetic adults. Minority populations were underrepresented and children were not included. (Diabetes Care 31:1811-5424, 2008). The eAG is not equivalent to a fasting glucose. Blood 12/19/2023 4:11 AM CDT 12/19/2023 7:28 AM CDT Marty Clarke MD LAB BLOOD ORDERABLE S Final Result [facility] [address] Department [place] [address] * Lipid panel (12/04/2023 3:08 PM CDT) SCRIBED Cholesterol, Total 171 <200 EXTERNAL LAB SCRIBED HDL 56 >40 EXTERNAL LAB SCRIBED LDL 80 <100 EXTERNAL LAB SCRIBED Triglycerides 217 <150 EXTERNAL LAB Blood Historical Provider LAB BLOOD ORDERABLES Edit ed Result - Final EXTERNAL LAB from Last 3 Months or Most Recently Relevant to Health Maintenance Insurance MEDICARE SOLUTIONS [place] [id number] MEDICARE SOLUTIONS Advance Directives For more information, please contact: [phone] Documents on File Type Date Recorded Patient Veterinary Milk Specialist Expl anation ADVANCE DIRECTIVE 01/26/2024 4:25 PM POLST - Phys Order for PT Preferences * Full Code (Latest Code Status on File) Date Activated Date Inactivated Comments 01/18/2024 6:52 PM 01/25/2024 8:13 PM * Full Code Date Activated Date Inactivated Comments 12/17/2023 2:54 PM 01/12/2024 9:23 PM Care Teams Whiskey Regauger Relationship Specialty Start Date End Date Nory Pabon MD PCP - General Family Medicine 06/19/22 Perry Leyva MD Consulting Physician Nephrology 01/25/24
--- OUTSIDE RECORDS SUMMARY | 2024-06-27 16:11 | XMS_ITS | Patient Health Summary ---
Author Organization [facility] Address [address] [place] [address] Care Team Providers Care Clinical Phlebotomist Name Role Phone Nory Pabon MD Primary Care Provider [phone] [facility],non-owned Affiliates and Associated Physician Practices is amultiple site organization consisting of ambulatory clinics and hospital sitesin [place], [place], [place]. This disclosure is being madepursuant to the Care Everywhere program and may not contain all information available regarding this patient. Last updated 18.[facility] Allergies No known active allergies Medications * Be aware that medications may not be up to date on this document. Alwaysverify current medications with the patient. * allopurinol (Zyloprim) 300 MG tablet(Started 05/23/2022) Take 1 (one) tablet by mouth once daily * calcitriol (Rocaltrol) 0.25 MCG capsule(Started 05/23/2022) Take 1 (one) capsule by mouth once daily * dilTIAZem coated beads 24hr (Cardizem CD) 360 MG capsule(Started 08/06/2022) Take 1 (one) capsule by mouth once daily * FeroSul 325 (65 Fe) MG tablet(Started 07/31/2022) Take 1 (one) tablet by mouth once daily * metoprolol succinate XL 24hr (Toprol XL) 50 MG tablet(Started 05/23/2022) Take 1 (one) tablet by mouth 3 times daily * omeprazole (PriLOSEC) 20 MG capsule(Started 07/07/2022) Take 1 (one) capsule by mouth once daily * oxyBUTYnin CR 24hr (Ditropan-XL) 5 MG tablet(Started 05/19/2022) Take 1 (one) tablet by mouth once daily * Multiple Vitamins-Minerals (CENTRUM SILVER ULTRA WOMENS PO) Take 1 tablet by mouth once daily * Fexofenadine HCl (DORETHA ALLERGY PO) Take 1 tablet by mouth once daily * ibuprofen (Advil) 200 MG tablet Take 2 (two) tablets by mouth every 6 hours as needed for Pain * fluticasone propionate (Flonase Allergy Relief) 50 MCG/ACT nasal spray [place] 2 (two) sprays into each nostril once daily * polyethylene glycol 3350 (GlycoLax) 17 GM/SCOOP powder Take 17 (seventeen) g by mouth once daily Active Problems Problem Noted Date Diagnosed Date 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
--- OUTSIDE RECORDS SUMMARY | 2024-06-27 16:11 | XMS_ITS | Clinical Summary ---
Author Organization [facility] Address [address] [place] [address] Care Team Providers Care Seed Expert Name Role Phone Nory Pabon MD Primary Care Provider [phone] Source Comments [facility],non-owned Affiliates and Associated Physician Practices is amultiple site organization consisting of ambulatory clinics and hospital sitesin [place], [place], [place] and [place]. This disclosure is being madepursuant to the Care Everywhere program and may not contain all information available regarding this patient. 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 01/19/2023 Immunizations Name Administration Dates Next Due INFLUENZA VACCINE 02/17/2022 Family History Medical History Relation Name Comments Diabetes; unknown type Brother Diabetes; unknown type Mother High Blood Pressure Mother Relation Name Status Comments Brother Mother Social History Tobacco Use Types Packs/Day Years [...] 08/12/2022 3:24 PM CDT Plan of Treatment Health Maintenance Due Date Last Done Comments BONE DENSITY TESTING 1950 COLOGUARD (AGES 45-75) - COL ON CA SCREENING [address] COLONOGRAPHY - COLON CA SCREENING 1950 FIT - COLON CA SCREENING 1950 FLEX SIG - COLON CA SCREENING 1950 LIPID TESTING 1950 MAMMOGRAM 1950 HEPATITIS C SCREENING 08/13/1970 DTAP/TDAP/TD VACCINES (1 - Tdap) 08/18/1971 PNEUMOCOCCAL VACCINE 50+ (1 of 1 - PCV) 2002 ZOSTER VACCINE (1 of 2) 2002 SCREENING FOR DIABETES 08/12/2022 COVID-19 VACCINE (1 - 2023-2 5 season) 2024 INFLUENZA VACCINE (#1) 2024 02/17/2022 DEPRESSION SCREENING 05/18/2024 MEDICARE AWV CALENDAR YEAR 2024 Respiratory Syncytial Virus (RSV) Vaccine Pt: or over 60 yrs (1 - 1-dose 75+ series) 08/18/2027 COLONOSCOPY - COLON CA SCREENING 12/31/2033 01/01/20 24 Colorectal Cancer Screening 12/31/2033 HEPATITIS B VACCINE Aged Out No longe r eligible based on patient's age to complete this topic HIB VACCINE Aged Out No longer eligi ble based on patient's age to complete this topic HPV VACCINE Aged Out No longer eligi ble based on patient's age to complete this topic MENINGOCOCCAL (Group B) VACCINE Aged Out No longer eligible based on patient's age to complete this topic MENINGOCOCCAL VACCINE Aged Out No maya hazel eligible based on patient's age to complete this topic Care Teams Seed Expert Relationship Specialty Start Date End Date Nory Pabon MD [address] [place] [address] PCP - General 07/24/22
--- OUTSIDE RECORDS SUMMARY | 2024-06-27 16:11 | XMS_ITS ---
Author Organization [facility] [address] Address [address] [place] [address] Care Team Providers Care Real Estate Services Administrator Name Role Phone Nory Pabon MD Primary Care Provider [phone] Perry Leyva MD Unavailable [phone] Dialysis Access Sites Type Status Location Placement Date Removal Da te Hemodialysis Cath Double 01/06/24 Tunneled catheter Right Internal Jugular Active Right Neck (side) - Anterior 01/06/2024 Hemodialysis Cath Triple 12/20/23 Non-tunneled catheter Right Internal Jugular Inactive Right Neck (side) - Anterior 12/20/2023 01/06/2024 Procedures Procedure Name Priority Date/Time Associated Diagnosis Comments EGFR Routine 01/25/2024 2:47 AM CDT COLONOSCOPY 01/01/2024 1:29 PM CDT HEPATITIS PANEL, ACUTE STAT 12/23/2023 11:54 AM CDT HEMOGLOBIN A1C Add-On 12/19/2023 4:11 AM CDT LIPID PANEL Routine 12/04/2023 3:08 PM CDT from Last 3 Months or Most Recently Relevant to Health Maintenance Allergies Active Allergy Reactions Criticality Noted Date [...] 1 tablet (100 mcg total) by mouth pressroom foreman before breakfast 01/09/20 24 Active calcitRIOL (ROCALTROL) [...] off HD, continue MWF for now at [facility] via tunnelled catheter chest wall Dr Leyva nephrology Continue calcitriol BARRY (acute kidney injury) 01/18/2024 Anemia 01/18/2024 Endometrial cancer ([facility]) 01/18/2024 Lethargic 01/18/2024 Pneumonia due to infectious [...] drink = 0.6 oz pur e alcohol) [facility] Utilities Answer Date Recorded In the past 12 months has [employer], gas, oil, or water [employer] threatened to shut off services in your [...] 01/19/2024 How often do you attend chur or religion services? 1 to 4 times per year 01/19/2024 Do you belong to any clubs o r organizations such as holiness groups, unions, fraternal or athletic groups, or [...] any time in the past 12 m [facility], were you homeless or living in a custodial (including now)? No 01/19/2024 Personal Safety Answer Date Recorded Have you ever been in or are you currently in a harmful physical or emotional relationship or is someone making you feel afraid or unsafe? Denies 01/18/2024 Comments No Sex and Gender Information Value Date Recorded Sex Assigned at Not on file Legal Sex Female 2:20 AM AIRWAYS OPERATIONS SPECIALIST Gender Identity Not on file Sexual Orientation Not on file Last Filed Vital Signs Vital Sign Reading Time Taken Comments Blood Pressure 114/86 05/09/2024 11:01 AM AIRWAYS OPERATIONS SPECIALIST Pulse 75 05/09/2024 11:01 AM AIRWAYS OPERATIONS SPECIALIST Temperature 36.5 C (97.7 F) 01/25/2024 11:18 AM CDT Respiratory Rate 18 01/25/2024 11:18 AM CDT Oxygen Saturation 99% 05/09/2024 11:01 AM AIRWAYS OPERATIONS SPECIALIST Inhaled Oxygen Concentration - - Weight 73.5 kg (162 lb) 04/19/2024 9:17 AM AIRWAYS OPERATIONS SPECIALIST Height 177.8 cm (5' 10 ) 04/19/2024 9:17 AM AIRWAYS OPERATIONS SPECIALIST Body Mass Index 23.24 04/19/2024 9:17 AM AIRWAYS OPERATIONS SPECIALIST Results * (ABNORMAL) eGFR (01/25/2024 2:47 AM [...] MD LAB BLOOD ORDERABLES Fi nal Result [facility] [address] [facility] Department [place] [address] * Colonoscopy (01/01/2024 1:29 PM CDT) Anatomical Region Laterality Modality Other Narrative Procedure Note Yusuf Alicea MD - 01/01/2024 1:29 PM CDT [facility] Endoscopy Lab Patient Name: Rosalva Marina Procedure Date: 01/01/2024 1:29 PM Date of : 1950 Admit Type: Inpatient Age: 73 Gender: Female Note Status: Finalized Attending MD: Yusuf Alicea M.D. Procedure Date: 01/01/2024 Procedure: Colonoscopy Indications: Hematochezia Providers: Yusuf Alicea M.D., Sonia White CRNA (Anesthesia Staff), Codi Mock RN, Calrene, Steam Hoist Operator Referring MD: Notinfile Unknown Medicines: Monitored Anesthesia Care Complications: No immediate [...] by the physician, the nurse and the garment manufacturer in the procedure room. Mental Status Examination: [...] not recommended. Procedure Code(s): --- Professional --- 77049, Colonoscopy, flexible; with biopsy, singleor multiple Diagnosis Code(s): --- Professional --- D12.5, Benign neoplasm of sigmoid colon K92.1, Melena (includes Hematochezia) K57.30, Diverticulosis of large intestine without perforation or abscess without bleeding CPT copyright 2020 [employer]. All rights reserved. The codes documented in this report are preliminary and upon medical record coder reviewmay be revised to meet current compliance requirements. Electronically signed by Yusuf Alicea M.D. Yusuf Alicea M.D. 01/01/2024 2:15:11 PM Number of Addenda: 0 Note Initiated On: 01/01/2024 1:29 PM us Yusuf Alicea MD ENDOSCOPY PROCEDURES Fi nal Result * Hepatitis panel, acute Blood (12/23/2023 11:54 AM CDT) Hep A IgM Nonreactive Nonreactive Comment: Interpretive Data: If Hep A IgM Ab is reported as Equivocal, a new sample should be drawn in two weeks for testing. Current interpretive data was last revised on 19. Hep B core IgM Nonreactive Nonreactive [facility] Comment: Interpretive Data If HepB Core IgM [...] 4 AM CDT 12/23/2023 12:12 PM CDT us Ping Funez MD LAB MICROBIOLOGY - GENERAL OR DERABLES Final Result Performing Organization Address City/State/[facility] Phone Number [facility] [id number] Department [place] [address] * (ABNORMAL) Hemoglobin A1c (12/19/2023 4:11 AM CDT) Hgb A1C 8.2(H) 4.0 - 5.6 % Estimated Average Glucose 189 mg/dL [facility] Comment: The ADA recommends reporting an estimated Average Glucose (eAG) with all Hemoglobin A1c results using the equation derived from a study of 507 normal and diabetic adults. Minority populations were underrepresented and children were not included. (Diabetes Care 31:7071-2550, 2008). The eAG is not equivalent to a fasting glucose. Blood 12/19/2023 4:11 AM CDT 12/19/2023 7:28 AM CDT us Marty Clarke MD LAB BLOOD ORDERABLE S Final Result [facility] [address] Department [place] [address] * Lipid panel (12/04/2023 3:08 PM CDT) SCRIBED Cholesterol, Total 171 <200 EXTERNAL LAB SCRIBED HDL 56 >40 EXTERNAL LAB SCRIBED LDL 80 <100 EXTERNAL LAB SCRIBED Triglycerides 217 <150 EXTERNAL LAB Blood us Historical Provider LAB BLOOD ORDERABLES Edit ed Result - Final EXTERNAL LAB from Last 3 Months or Most Recently Relevant to Health Maintenance
[2024-06-27 17:11] LABS: Influenza A QL RT-PCR Positive (Negative); Influenza B QL RT-PCR Negative (Negative); RSV RNA, RT-PCR Negative (Negative); SARS-CoV-2 RNA PCR Negative (Negative)
== END 2024-06-27 16:09 | disposition home or self-care (01) ==
PROVIDERS: PCP Family Medicine; Visit Provider Family Medicine
DX: J06.9 Acute upper respiratory infection, unspecified (principal)
CPT/HCPCS: 87637

== ENCOUNTER 2024-09-20 09:36 | Outpatient (CLI) | payer MEDICARE, SELFPAY ==
[2024-09-20 09:58] LABS: Basophils Percent Auto 0.7 % (0.2-1.2); Eosinophils Absolute Auto 0.1 K/mm3 (0-0.3); Eosinophils Percent Auto 1.7 % (0-4.4); Hematocrit 37.8 % (37.0-47.0); Hemoglobin 11.9 g/dL (12.0-15.0); Immature Granulocyte Absolute 0.04 K/mm3 (0.00-0.031); Immature Granulocyte Percent A 0.7 % (0-0.5); Lymphocytes Absolute Auto 2.25 K/mm3 (0.9-3.2); Lymphocytes Percent Auto 38.4 % (18.3-44.2); Mean Corpuscular HGB Conc 31.5 g/dl (32-36); Mean Corpuscular Hemoglobin 28.5 pg (26-34); Mean Corpuscular Volume 90.6 fl (80-100); Mean Platelet Volume 10.6 fl (7.4-10.4); Monocytes Absolute Auto 0.6 K/mm3 (0.1-0.6); Monocytes Percent Auto 9.4 % (2.6-8.5); Neutrophils Absolute Auto 2.9 K/mm3 (1.3-6.7); Neutrophils Percent Auto 49.1 % (45.5-73.1); Platelet Count Result 216 k/mm3 (150-375); Red Blood Count 4.17 M/mm3 (4.2-5.4); Red Cell Distribution Width 14.4 % (11.5-14.5); White Blood Count 5.9 K/mm3 (4.5-10.0)
[2024-09-20 10:01] LABS: Blood Urea Nitrogen 25 mg/dL (8-26); Carbon Dioxide 23 mmol/L (22-30); Chloride 109 mmol/L (98-109); Estimated Glomerular Filt Rate 34; Glucose 104 mg/dL (70-105); Ionized Calcium (POC) 1.28 mmol/L (1.11-1.31); Potassium 3.7 mmol/L (3.5-4.9); Sodium 145 mmol/L (138-146)
--- OUTSIDE RECORDS SUMMARY | 2024-09-20 10:12 | XMS_ITS | Clinical Summary ---
[facility] Organization [facility] Address [address] [place] [address] Care Team Providers Care Base Wad Operator Adjuster Name Role Phone Nory Pabon MD Primary Care Provider [phone] Allergies Active Allergy Reactions Criticality Noted Date Comments Iodinated Contrast Media Itching Low 08/19/2024 Medications FeroSuL 325 mg (65 mg iron) tablet Take 325 mg by mouth daily. 08/27/19 23 Active omeprazole (PriLOSEC) 20 mg Capsule, Delayed Release(E.C.) Take 20 mg by mouth daily. 07/07/19 23 Active allopurinoL (ZYLOPRIM) 300 mg tablet 08/27/19 23 Active calcitRIOL (ROCALTROL) 0.25 mcg capsule Take 0.25 mcg by mouth daily. Reports taking every other day 08/20/19 23 Active diltiaZEM (CARDIZEM CD) 360 mg Controlled Delivery 24 hour capsule Take 180 mg by mouth daily. 08/07/19 23 Active metoprolol succinate (TOPROL XL) [...] 23 Active fluticasone propionate (FLONASE) 50 mcg/spray Matteson, Suspension nasal inhalerIndicati ons:Malignant neoplasm of lung, [...] differently: 112 mcgOral DAILY EARLY, Reported on 09/14/2024 furosemide (Lasix) 20 mg tablet Take 1 Tablet (20 mg) by mouth 2 times daily. 60 Tablet 1 11/13/19 24 Active potassium CHLORIDE (K-DUR,KLOR-CON M20) 20 mEq Extended Release tabletIndicatio ns:Malignant neoplasm of lung, unspecified laterality, unspecified part of lung (CMS/HCC) TAKE 1 TABLET BY MOUTH DAILY 100 Tablet 2 08/12/19 25 Active cyanocobalamin (VITAMIN B-12) 500 mcg tablet Take 500 mcg by mouth daily. Active predniSONE (DELTASONE) 20 mg tabletIndicatio ns:IODINE allergy Take 2 tablets (40mg) by mouth 12 hours before procedure and 2 tablets (40mg) 2 hours before procedure. 4 Tablet 08/20/19 25 Active diphenhydrAMINE (BENADRYL) 50 mg capsuleIndicati ons:IODINE allergy Take 1 50mg capsule by mouth 12 hours before procedure and 1 50mg capsule 2 hours before procedure. 2 Capsule 08/20/19 25 Active Active Problems Problem Noted Date Diagnosed Date Aneurysm of descending thoracic aorta 08/19/2024 Encounters Date Type Department Care Team Description 09/20/2024 9:45 AM CDT Office Visit [facility] Oncology and Hematology - [address] [place] [address] Davi Lion MD Arrived 09/20/2024 Patient Outreach [address] [place] [address] Tino Kilpatrick MD Results 09/14/2024 8:29 AM CDT - 09/14/2024 5:00 PM CDT Hospital Encounter [facility] [address] [place] [address] Tino Kilpatrick MD [address], [address] [facility] Aneurysm of descending thoracic aorta without rupture Discharge Disposition: Home or Self Care 09/14/[address] [place] [address] Tino Kilpatrick MD Question 08/23/2024 External Device Data ST[facility] ABSTRACTION Provider, Abstract 08/23/2024 External Device Data [facility] ABSTRACTION Provider, Abstract 08/23/2024 External Device Data [facility] ABSTRACTION Provider, Abstract 08/19/2024 12:45 PM CDT Office Visit [address] [place] [address] Tino Kilpatrick MD Aneurysm of descending thoracic aorta without rupture (Primary Dx); Allergy to iodine 08/10/2024 Refill [facility] Oncology and Hematology - [address] [place] [address] Davi Lion MD Malignant neoplasm of lung, unspecified laterality, unspecified part of lung (CMS/HCC) 08/03/2024 External Device Data STL ABSTRACTION Provider, Abstract 07/28/2024 Abstract [facility] Cardiovas and Thor Surg at [facility] [place] [address] [address] [facility] [address] [place] [address] Faith Beth MD 07/23/2024 External Device Data ST[facility] ABSTRACTION Provider, Abstract 07/22/2024 External Device Data [facility] ABSTRACTION Provider, Abstract 07/20/2024 External Device Data ST[facility] ABSTRACTION Provider, Abstract 07/06/2024 External Device Data STL ABSTRACTION Provider, Abstract from Last 3 Months Family History Medical [...] Sign Reading Time Taken Comments Blood Pressure 122/85 09/20/2024 9:57 AM CDT Pulse 64 09/20/2024 9:57 AM CDT Temperature 35.7 C (96.2 F) 09/20/2024 9:57 AM CDT Respiratory Rate 15 09/20/2024 9:57 AM CDT Oxygen Saturation 91% 09/20/2024 9:57 AM CDT Inhaled Oxygen Concentration - - Weight 73.3 kg (161 lb 9.6 oz) 09/20/2024 9:57 A M CDT Height 177.8 cm (5' 10 ) 09/14/2024 8:30 AM CDT Body Mass Index 23.19 09/14/2024 8:30 AM CDT Plan of Treatment Health Maintenance Due Date Last Done Comments DIABETES ANNUAL FOOT EXAM 1970 DIABETES ANNUAL RETINAL EXAM 1970 DIABETES MICROALBUMIN ANNUAL SCREEN 1970 LDL CHOLESTEROL ANNUAL 1970 DTAP/TDAP/TD VACCINES (1 - Tdap) 08/18/1971 PNEUMOCOCCAL VACCINE 50+ YEA RS (1 of 2 - PCV) 08/18/1971 BREAST CANCER SCREENING 1992 FIT-DNA Q 3 years 1997 FIT/FOBT Q 1 year 1997 Flex Sig/CT Colonography Q 5 years 1997 ZOSTER VACCINE (1 of 2) 2002 RSV VACCINE (60+ or ) (1 - Risk 60-74 years 1-dose series) 2012 OSTEOPOROSIS SCREENING 2017 INFLUENZA VACCINE (#1) 2023 Medicare Advantage ([place]) Prev entative Visit/Annual Wellness Visit 05/18/2024 DIABETES HBA1C Q 6 MONTHS 06/20/2024 12/19/2023 COLORECTAL SCREENING 12/31/2033 01/01/2024, 01/01/2024, 05/03/2018 Colorectal Cancer Screening 12/31/2033 Procedures Procedure Name Priority Date/Time Associated Diagnosis Comments CTA CHEST ABD PELVIS W WO CONTRAST Routine 09/14/2024 12:19 PM CDT Aneurysm of descending thoracic aorta without rupture BASIC METABOLIC PANEL Routine 09/14/2024 8:49 AM CDT from Last 3 Months Results * CTA CHEST ABD PELVIS W AND/OR WO CONTRAST (09/14/2024 12:19 PM CDT) Anatomical Region Laterality Modality Chest, Abdomen, Pelvis Computed Tomography 09/14/2024 12:1 2 PM CDT Impressions 09/14/2024 4:26 PM CDT IMPRESSION: Aneurysmal dilatation of the descending thoracic aorta, measuring 6.4 cm in maximum diameter orthogonally to the long axis. DICTATION LOCATION: 1 Narrative 09/14/2024 4:26 PM CDT EXAMINATION: CT Angiography of the Chest, Abdomen and Pelvis W/WO Contrast HISTORY: Thoracic aortic disease, preop planning TECHNIQUE: CT angiography of the chest, abdomen and pelvis was performed following the uneventful administration of intravenous contrast. Volume Rendered (VR) images, Maximum Intensity Projection (MIP) images and curved-plane reformatted images were created on a 3-D Postprocessing workstation. The examination was performed with the adjustment of mA according to the patient size and/or the use of Iterative Reconstruction Technique. CONTRAST: IOPAMIDOL 61 % INTRAVENOUS SOLUTION (MULTI-DOSE BULK PACK) Given:100 mL DLP: 274.43 mGy-cm. FINDINGS: No prior studies available for comparison. Vascular findings: Heart size is enlarged and there is a trace pericardial effusion. There are atherosclerotic calcifications of the coronary arteries. The ascending aorta measures 3.9 cm in maximum diameter. 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 There is marked aneurysmal dilatation of the descending thoracic aorta, measuring 6.4 cm orthogonally to the long axis. The aorta measures 4.6 cm at the diaphragmatic hiatus. Celiac: Patent SMA: Patent Right renal artery: Mild stenosis Left renal artery: Patent There is tortuosity of the infrarenal abdominal aorta, but it appears normal in caliber. The iliac arteries are patent. Nonvascular findings: Lungs: Normal Mediastinum: No mediastinal or hilar lymphadenopathy Chest wall: Normal Liver: Normal Gallbladder: Sludge layering in the gallbladder Pancreas: Normal Spleen: Normal Adrenal glands: Normal Kidneys: Subcentimeter AML lower right kidney Stomach: Normal Small bowel: Normal Colon: Diverticulosis Bladder: Normal Bones: Lumbar degenerative disc disease Other: There is no pelvic or retroperitoneal lymphadenopathy. Procedure Note Dominic Lawson MD - 09/14/2024 EXAMINATION: CT Angiography of the Chest, Abdomen and Pelvis W/WO Contrast HISTORY: Thoracic aortic disease, preop planning TECHNIQUE: CT angiography of the chest, abdomen and pelvis was performed following the uneventful administration of intravenous contrast. Volume Rendered (VR) images, Maximum Intensity Projection (MIP) images and curved-plane reformatted images were created on a 3-D Postprocessing workstation. The examination was performed with the adjustment of mA according to the patient size and/or the use of Iterative Reconstruction Technique. CONTRAST: IOPAMIDOL 61 % INTRAVENOUS SOLUTION (MULTI-DOSE BULK PACK) Given:100 mL DLP: 274.43 mGy-cm. FINDINGS: No prior studies available for comparison. Vascular findings: Heart size is enlarged and there is a trace pericardial effusion. There are atherosclerotic calcifications of the coronary arteries. The ascending aorta measures 3.9 cm in maximum diameter. 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 There is marked aneurysmal dilatation of the descending thoracic aorta, measuring 6.4 cm orthogonally to the long axis. The aorta measures 4.6 cm at the diaphragmatic hiatus. Celiac: Patent SMA: Patent Right renal artery: Mild stenosis Left renal artery: Patent There is tortuosity of the infrarenal abdominal aorta, but it appears normal in caliber. The iliac arteries are patent. Nonvascular findings: Lungs: Normal Mediastinum: No mediastinal or hilar lymphadenopathy Chest wall: Normal Liver: Normal Gallbladder: Sludge layering in the gallbladder Pancreas: Normal Spleen: Normal Adrenal glands: Normal Kidneys: Subcentimeter AML lower right kidney Stomach: Normal Small bowel: Normal Colon: Diverticulosis Bladder: Normal Bones: Lumbar degenerative disc disease Other: There is no pelvic or retroperitoneal lymphadenopathy. IMPRESSION: Aneurysmal dilatation of the descending thoracic aorta, measuring 6.4 cm in maximum diameter orthogonally to the long axis. DICTATION LOCATION: [address] ORDERABLES Final Result * (ABNORMAL) BASIC METABOLIC PANEL (09/14/2024 8:49 AM CDT) SODIUM 137 136 - 145 mmol/L 09/14/2024 9:29 AM CDT [facility] POTASSIUM 09/14/2024 9:29 AM T [facility] Comment: Test cannot be performed. Sample hemolysis interference above limits. Redraw if indicated. Approved to report results except K+ (due to specimen hemolysis) per Tiffany Olmstead RN at 9:29 AM on 09/14/2024. CHLORIDE 106 98 - 107 mmol/L 09/14/2024 9:29 AM T [facility] CO2 17(L) 22 - 29 mmol/L 09/14/2024 9:29 AM T [facility] CALCIUM 10.2 8.6 - 10.2 mg/dL 09/14/2024 9:29 AM T [facility] BUN 33(H) 8 - 23 mg/dL 09/14/2024 9:29 AM T [facility] CREATININE 1.54(H) 0.51 - 0.95 mg/dL 09/14/2024 9:29 AM T [facility] Comment:The GFR result is no t clinically significant on patients <18 or >70 years of age. GLUCOSE 152(H) 74 - 99 mg/dL 09/14/2024 9:29 AM T [facility] GFR 36 mL/min/1. 73 sq meter 09/14/2024 9:29 AM CDT [facility] Comment:eGFR calculated with 2020 CKD-EPI equation. Vegetarian diet, extremely high or low muscle mass, and may affect results. Cystatin C with Glomerular Filtration Rate is a suitable alternative for these patients. ANION GAP 14 8 - 16 mmol/L 09/14/2024 9:29 AM CDT [facility] Blood Venipuncture / Unknown 09/14/2024 8:49 AM CDT 09/14/2024 8:55 AM CDT us Tino Kilpatrick MD CHEMISTRY ORDERABLES Final Res ult [facility] CLIA# [id number] [address] [id number] from Last 3 Months Insurance Care Teams Base Wad Operator Adjuster Relationship Specialty Start Date End Date Nory Pabon MD [address] [place] [address] PCP - General Family Practice 08/29/22
--- OUTSIDE RECORDS SUMMARY | 2024-09-20 10:12 | XMS_ITS | Clinical Summary ---
Author Organization [facility] Address [address] [place] [address] Care Team Providers Care Vest Maker Name Role Phone Nory Pabon MD Primary Care Provider [phone] Source Comments [facility],non-owned Affiliates and Associated Physician Practices is amultiple site organization consisting of ambulatory clinics and hospital sitesin [place], [place], [place] and [place]. This disclosure is being madepursuant to the Care Everywhere program and may not contain all information available regarding this patient. Last updated 18.[facility] Allergies No known active allergies Medications * Be aware that medications may not be up to date on this document. Alwaysverify current medications with the patient. allopurinol (Zyloprim) 300 MG tablet Take 1 [...] by mouth once daily 05/19/2022 Active Multiple Vitamins-Minera ls (CENTRUM SILVER ULTRA WOMENS PO) Take 1 tablet by mouth once daily Active Fexofenadine HCl (DORETHA ALLERGY PO) Take 1 tablet by mouth once daily Active ibuprofen (Advil) 200 MG tablet Take 2 (two) tablets by mouth every 6 hours as needed for Pain Active fluticasone propionate (Flonase Allergy Relief) 50 MCG/ACT nasal spray Simpson 2 (two) sprays into each nostril once daily Active polyethylene glycol 3350 (GlycoLax) 17 GM/SCOOP powder Take 17 (seventeen) g by mouth once daily Active Active Problems Problem Noted Date Diagnosed Date 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 01/19/2023 Immunizations Immunization Administration Dates Next Due INFLUENZA VACCINE 02/17/2022 [...] = 0.6 oz pur e alcohol) socially Comments Unknown Sex and Gender Information Value Date Recorded Sex Assigned at Female 10/29/2022 3:30 PM CDT Legal Sex Female 11:11 AM TOY CONSULTANT Gender Identity Not on file Sexual Orientation [...] SCREENING 1950 LIPID TESTING 1950 MAMMOGRAM 1952 DTAP/TDAP/TD VACCINES (1 - Tdap) 08/18/1971 PNEUMOCOCCAL VACCINE 50+ (1 of 1 - PCV) 2002 ZOSTER VACCINE (1 of 2) 2002 SCREENING FOR DIABETES 08/12/2022 COVID-19 VACCINE ( - 2023-2 5 season) 2024 DEPRESSION SCREENING 05/18/2024 MEDICARE AWV CALENDAR YEAR 2024 INFLUENZA VACCINE (Season Ended) 2025 02/17/2022 Respiratory Syncytial Virus (RSV) Vaccine Pt: or over 60 yrs (1 - 1-dose 75+ series) 08/18/2027 COLONOSCOPY - COLON CA SCREENING 12/31/2033 01/01/2024 Colorectal Cancer Screening 12/31/2033 HEPATITIS C SCREENING Completed 01/06/2024 , 12/23/2023 HEPATITIS B VACCINE Aged Out No longe r eligible based on patient's age to complete this topic HIB VACCINE Aged Out No longer eligi ble based on patient's age to complete this topic HPV VACCINE Aged Out No longer eligi ble based on patient's age to complete this topic MENINGOCOCCAL (Group B) VACCINE SHARED DECISION-MAKING Aged Out No longer eligible based on patient's age to complete this topic MENINGOCOCCAL GROUPS A/C/Y/W VACCINE Aged Out No longer eligible b ased on patient's age to complete this topic Insurance [facility] MEDICARE ADV [facility] MANAGED MEDICARE ADV [place] [id number] Care Teams Vest Maker Relationship Specialty Start Date End Date Nory Pabon MD [address] [place] [address] PCP - General 07/24/22
--- OUTSIDE RECORDS SUMMARY | 2024-09-20 10:12 | XMS_ITS ---
Author Organization [facility] [address] Address [address] [place] [address] Care Team Providers Care Supervisor Newspaper Deliveries Name Role Phone Nory Pabon MD Primary Care Provider [phone] Perry Leyva MD Unavailable [phone] Active Problems Problem Noted Date Diagnosed Date Type 2 diabetes mellitus wit hout complication, without long-term current use of insulin 01/24/2024 Assessment & Plan (01/24/2024 2:00 PM [...] off HD, continue MWF for now at [facility] via tunnelled catheter chest wall Dr Leyva nephrology Continue calcitriol BARRY (acute kidney injury) 01/18/2024 Anemia 01/18/2024 Endometrial cancer 01/18/2024 Lethargic 01/18/2024 Pneumonia due to infectious [...] to chronic kidney disease, on chronic dialysis 01/16/2024 Assessment & Plan (01/24/2024 2:04 PM [...] lasix, cardizem Hematochezia 12/16/2023 Hypertrophic obstructive cardiomyopathy 04/24/20 14 Overview (08/21/2016): Hypertrophic obstructive cardiomyopathy Assessment & Plan (01/24/2024 2:02 PM CDT): Follows with Dr Guaman, EF 65% on recent echo, continue low salt diet, monitor weights; lasix 20mg daily Current Treatment and Therapy Plans No current plan information found. Past Treatment and Therapy Plans No past plan information found. Lifetime Dose Tracking * Chemical Lifetime Dose Automatic Entry Manual Entr y Fluoro Time 9.5 minutes 9.5 minutes 0 minutes Air kerma at the reference point (Ka,r) 34.6 mGy 3 4.6 mGy 0 mGy
--- OUTSIDE RECORDS SUMMARY | 2024-09-20 10:12 | XMS_ITS | Clinical Summary ---
Author Organization [facility] Address [address] [facility] [address] [place] [address] Phone Care Team Providers Care Strip Winder Name Role Phone Aminta Enamorado MD Primary Care Provi reina Allergies Active Allergy Reactions Criticality Noted Date Comments Iodine Itching Medium 03/09/2024 Medications folic acid (FOLVITE) 1 MG Tablet Take 1 mg by mouth daily. rx [id number] Active levothyroxine (SYNTHROID) 100 MCG Tablet Take 100 mcg by mouth daily. rx [id number] Active oxybutynin (DITROPAN) 5 MG Tablet Take 5 mg by mouth daily. rx [id number] Active PANTOPRAZOLE SODIUM PO Take 40 mg by mouth daily. rx [id number] Active metoprolol tartrate (LOPRESSOR) 25 MG Tablet Take 25 mg by mouth 2 times daily. rx [id number] Active potassium chloride (KLOR-CON) 20 MEQ Pack Take 20 mEq by mouth daily. rx [id number] Active dilTIAZem HCl ER 360 MG TABLET SR 24 HR Take 1 Tablet by mouth daily. [id number] Active allopurinol (ZYLOPRIM) 300 MG Tablet Take 300 mg by mouth daily. rx [id number] Active calcitRIOL (ROCALTROL) 0.25 MCG Capsule Take 0.25 mcg by mouth daily. [id number] Active Social History Tobacco Use Types Packs/Day Years Used Date Smoking Tobacco: Never Assessed Comments Unknown Sex and Gender Information Value Date Recorded Sex Assigned at Not on file Legal Sex Female 9:34 PM CDT Gender Identity Not on file Sexual Orientation Not on file Last Filed Vital Signs Vital Sign Reading Time Taken Comments Blood Pressure 126/86 04/18/2024 2:22 PM HADOOP ARCHITECT Pulse 68 04/18/2024 2:22 PM HADOOP ARCHITECT Temperature 36.8 C (98.2 F) 04/18/2024 2:22 PM HADOOP ARCHITECT Respiratory Rate 18 04/18/2024 2:22 PM HADOOP ARCHITECT Oxygen Saturation 98% 04/18/2024 2:22 PM HADOOP ARCHITECT Inhaled Oxygen Concentration - - Weight 73 kg (161 lb) 04/18/2024 2:22 PM HADOOP ARCHITECT Height 177.8 cm (5' 10 ) 03/11/2024 3:27 PM CDT Body Mass Index 23.1 03/11/2024 3:27 PM CDT Plan of Treatment Health Maintenance Due Date Last Done Comments DEXA Bone Density 1950 Hepatitis C Virus (HCV) Screening 1950 Mammogram 1950 Cologuard 2002 Zoster Immunization (1 of 2) 2002 Pneumococcal Immunization (50+ years) (2 of 2 - PCV) 05/13/2019 05/13/2018 Influenza Immunization (#1) 01/17/202402/16, 02/17/2022, 05/03/2021, Additional history exists SARS-COV-2 Immunization [...] Procedure Name Priority Date/Time Associated Diagnosis Comments HM COLONOSCOPY Routine 05/03/2018 from Last 3 Months or Most Recently Relevant to Health Maintenance Results * COLONOSCOPY (05/03/2018) Jean-Pierre Mejia DO PROCEDURE/MINOR SURGICAL ORDERA BLES Final Result from Last 3 Months or Most Recently Relevant to Health Maintenance Insurance MEDICARE C [employer] [address] [id number] Advance Directives * Full Code (Latest Code Status on File) Date Activated Date Inactivated Comments 03/10/2024 8:19 AM Healthcare Agents on File Name Relationship Healthcare Agent Relationshi p Communication Patel Laina Spouse Healthcare POA Care Teams Strip Winder Relationship Specialty Start Date End Date Aminta Enamorado MD [address] [place] [address] PCP - General Family Medicine 03/31/18
--- OUTSIDE RECORDS SUMMARY | 2024-09-20 10:12 | XMS_ITS | Encounter Summary ---
Author Organization [facility] Address [address] [place] [address] Care Team Providers Care Electronics Technician Name Role Phone Nory Pabon MD Primary Care Provider [phone] Encounter Details Date Type Department Care Team (Late st Contact Info) Description 11/10/2022 Telephone [facility] Oncology and Hematology - [address] [facility] [address] [address] Davi Lion MD [address] [facility] [address] [place] [address] Social History Tobacco Use Types Packs/Day [...] on file documented as of this encounter Visit Diagnoses Not on filedocumented in this encounter Care Teams Electronics Technician Relationship Specialty Start Date End Date Nory Pabon MD [address] [place] [address] PCP - General Family Practice 08/29/22 documented as of this encounter
--- OUTSIDE RECORDS SUMMARY | 2024-09-20 10:12 | XMS_ITS | Encounter Summary ---
Author Organization [facility] [employer] [facility] Address [address] [place] [address] Care Team Providers Care Litigation Partner Name Role Phone Nory Pabon MD Primary Care Provider [phone] Encounter Details Date Type Department Care Team (Late st Contact Info) Description 09/20/2024 9:45 AM CDT Office Visit [facility] Oncology and Hematology - [place] [address] [place] [address] [address] [place] [address] Davi Lion MD [address] [facility] [address] [place] [address] Arrived Social History Tobacco Use Types Packs/Day Years [...] on file documented as of this encounter Last Filed Vital Signs Vital Sign Reading [...] oz) 09/20/2024 9:57 A M CDT Height - - Body Mass Index 23.19 09/14/2024 8:30 AM CDT documented in this encounter Plan of Treatment Not on file documented as of this encounter Visit Diagnoses Not on filedocumented in this encounter Care Teams Litigation Partner Relationship Specialty Start Date End Date Nory Pabon MD [address] [place] [address] PCP - General Family Practice 08/29/22 documented as of this encounter
--- OUTSIDE RECORDS SUMMARY | 2024-09-20 10:12 | XMS_ITS | Encounter Summary ---
Author Organization [facility] Address [address] [place] [address] Care Team Providers Care Garment Manufacturer Name Role Phone Nory Pabon MD Primary Care Provider [phone] Reason for Visit * Reason Onset Date Comments Results 09/20/2024 Encounter Details Date Type Department Care Team (Late st Contact Info) Description 09/20/2024 Patient Outreach [facility] Watch Train Assembler [facility] [address] [place] [address] Tino Kilpatrick MD [address] [address] Results Social History Tobacco Use Types Packs/Day Years [...] on file documented as of this encounter Miscellaneous Notes * Telephone Encounter - Tino Kilpatrick MD - 09/20/2024 8:20 AM CDT Patient called with results of CT angiogram. 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 Diameter is somewhere in the neighborhood of 6-1/2 cm. I spoke with her oncologist who feels that her prognosis related to her previously treated endometrial cancer is quite good and therefore would recommend surgical repair of this aneurysm. The patient is interested in proceeding. I recommended that she make an appointment to see me in clinic so we can discuss the details of the surgical plans [id number]. documented in this encounter Plan of Treatment Not on file documented as of this encounter Visit Diagnoses Not on filedocumented in this encounter Care Teams Garment Manufacturer Relationship Specialty Start Date End Date Nory Pabon MD [address] [place] [address] PCP - General Family Practice 08/29/22 documented as of this encounter
--- OUTSIDE RECORDS SUMMARY | 2024-09-20 10:12 | XMS_ITS | Clinical Summary ---
Author Organization [facility] [address] Address [address] [place] [address] Care Team Providers Care Cell Changer Name Role Phone Nory Pabon MD Primary Care Provider [phone] Perry Leyva MD Unavailable [phone] Allergies Active Allergy Reactions Criticality Noted [...] Active Additional Information Patient not taking.Reported on 07/21/2024 levothyroxine (SYNTHROID) 100 mcg tablet Take 1 tablet (100 mcg total) by mouth stakes player before breakfast 01/09/20 24 Active calcitRIOL (ROCALTROL) [...] mg 24 hr tabletIndications: Hypertrophic obstructive cardiomyopathy (HCC) Take 1 tablet (180 mg total) by mouth daily 90 tablet 3 04/19/20 24 025 Active famotidine (PEPCID) 20 mg tablet Take 1 tablet (20 mg total) by mouth daily Active Active Problems Problem Noted Date [...] off HD, continue MWF for now at [facility] via tunnelled catheter chest wall Dr [...] Encounters Date Type Department Care Team Description 07/21/2024 8:15 AM FURNACE COMBUSTION ANALYST Office Visit [facility] Cardiology at [address] [place] [address] Radames Farrar MD Hypertrophic obstructive cardiomyopathy (HCC) (Primary Dx) from Last 3 Months Surgical History Surgery Date Site/Laterality Comments COLONOSCOPY 01/01/2024 TUNNELED LINE PLACEMENT > 5 YEARS 01/06/2024 N/A TUBAL LIGATION 1980 HYSTERECTOMY AUGUST 2013 CATARACT EXTRACTION SECTION 1979 Medical History Medical History Date Comments Hypertension Hypertension Diabetes mellitus (HCC) 11/2023 MICHAEL (obstructive sleep apnea) Hypothyroidism HOCM (hypertrophic obstructive cardiomyopathy) ( HCC) CKD (chronic kidney disease) GERD (gastroesophageal reflux disease) Gout Uterine cancer (HCC) Thoracic aortic aneurysm (TAA) m onitored Arthritis Family History Medical History Relation Name Comments Arthritis Mother Esther Lebron Diabetes Mother Esther Lebron Vision loss Mother Esther Lebron Relation Name Status Comments Mother Esther Lebron Alive Social History Tobacco Use Types Packs/Day Years Used Date Smoking Tobacco: Never Smokeless Tobacco: Never Tobacco Cessation:Counseling Given: Not Answered Alcohol Use Standard Drinks/Week Comments No 0 (1 standard drink = 0.6 oz pur e alcohol) [facility] Utilities Answer Date Recorded In the past 12 months has [employer], gas, oil, or water [employer] threatened to shut off services in your [...] often do you attend chur ch or caodaism services? 1 to 4 times per year [...] any time in the past [facility], were you homeless or living in a half-way (including now)? No 01/19/2024 Personal Safety Answer Date Recorded Have you ever been in or are you currently in a harmful physical or emotional relationship or is someone making you feel afraid or unsafe? Denies 01/18/2024 Comments No Sex and Gender Information Value Date Recorded Sex Assigned at Not on file Legal Sex Female 2:20 AM FURNACE COMBUSTION ANALYST Gender Identity Not on file Sexual Orientation Not on file Obstetrics History Last Filed Vital Signs Vital Sign Reading Time Taken Comments Blood Pressure 108/70 07/21/2024 8:06 AM FURNACE COMBUSTION ANALYST Pulse 75 07/21/2024 8:06 AM FURNACE COMBUSTION ANALYST Temperature 36.5 C (97.7 F) 01/25/2024 11:18 AM CDT Respiratory Rate 18 01/25/2024 11:18 AM CDT Oxygen Saturation 96% 07/21/2024 8:06 AM FURNACE COMBUSTION ANALYST Inhaled Oxygen Concentration - - Weight 69.9 kg (154 lb) 07/21/2024 8:06 AM FURNACE COMBUSTION ANALYST Height 177.8 cm (5' 10 ) 07/21/2024 8:06 AM FURNACE COMBUSTION ANALYST Body Mass Index 22.1 07/21/2024 8:06 AM FURNACE COMBUSTION ANALYST Plan of Treatment Health Maintenance Due Date [...] - Td or Tdap) 07/29/2022 07/29/2012, 09/27/2002 Hemoglobin A1C 06/20/2024 12/19/2023 Lipid Panel 12/03/2024 12/04/2023, 0806/2021, 12/11/2020, Additional history exists Influenza Vaccine (Season Ended) 2025 02/18/20 22, 04/27/2019 Fall Risk Assessment 01/24/2025 01/25/2024 eGFR 01/24/2025 01/25/2024, 090 12/2023, 01/23/2024, Additional history exists Colon Cancer Screening-Colonoscopy 12/31/2033 01/01/2024 Hepatitis B Screening Completed 12/23/2023 Hepatitis C Screening Completed 12/23/2023 Colon Cancer Screening-CT Colonography Discontinued 01/01/2024 Colon Cancer Screening-DNA Stool Discontinued 01/01/20 Colon Cancer Screening-FIT Discontinued 01/01/2024 Colon Cancer Screening-Sigmoidoscopy Discontinued 01/01/2024 Medical Devices Implanted Type Area Food Stand Manager Device Identifier Shelf Expiration Date Model / Serial / Lot [facility] [employer] Duramax Vascpak Safesheath D-Pro 15.5fr 28cm Kit Catheter [id number] - [id number] Implanted:Qty: 1 on 01/06/2024 at [facility] [employer] 01/15/2026 [id number] / / [id number] Procedures Procedure Name Priority Date/Time Associated Diagnosis [...] us Jose Willis MD LAB BLOOD ORDERABLES nal Result [facility] [address] [facility] Department [place] [address] * Colonoscopy (01/01/2024 1:29 PM CDT) Anatomical Region Laterality Modality Other Narrative Procedure Note Yusuf Alicea MD - 01/01/2024 1:29 PM CDT [facility] Endoscopy Lab Patient Name: Rosalva Marina Procedure Date: 01/01/2024 1:29 PM Date of : 1950 Admit Type: Inpatient Age: 73 Gender: Female Note Status: Finalized Attending MD: Yusuf Alicea M.D. Procedure Date: 01/01/2024 Procedure: Colonoscopy Indications: Hematochezia Providers: Yusuf Alicea M.D., Sonia White CRNA (Anesthesia Staff), Codi Mock RN, Carlene, Survey Statistician Referring MD: Carmen Cardenas Medicines: Monitored Anesthesia [...] by the physician, the nurse and the labor arbitrator hearing office in the procedure room. Mental Status Examination: [...] not recommended. Procedure Code(s): --- Professional --- 36306, Colonoscopy, flexible; with biopsy, singleor multiple Diagnosis Code(s): --- Professional --- D12.5, Benign neoplasm of sigmoid colon K92.1, Melena (includes Hematochezia) K57.30, Diverticulosis of large intestine without perforation or abscess without bleeding CPT copyright 2020 [employer]. All rights reserved. The codes documented in this report are preliminary and upon human service coordinator reviewmay be revised to meet current compliance [...] 19. Hep B core IgM Nonreactive Nonreactive [facility] Comment: Interpretive Data If HepB Core IgM Ab is reported as Equivocal, a new sample should be drawn in two weeks for testing. Current interpretive data was last revised on 19. Hep C Ab Nonreactive Nonreactive [facility] Comment: Interpretive Data Nonreactive: Antibodies [...] last revised on 2019. HepBsAg Nonreactive Nonreactive [facility] Blood 12/23/2023 11:5 4 AM CDT 12/23/2023 12:12 PM CDT Ping Funez MD LAB MICROBIOLOGY - GENERAL OR DERABLES Final Result [facility] [address] Department of Laboratories [place], [place] [id number] * (ABNORMAL) Hemoglobin A1c (12/19/2023 4:11 AM CDT) Hgb A1C 8.2(H) 4.0 - 5.6 % Estimated Average Glucose 189 mg/dL [facility] Comment: The ADA recommends reporting an estimated Average Glucose (eAG) with all Hemoglobin A1c results using the equation derived from a study of 507 normal and diabetic adults. Minority populations were underrepresented and children were not included. (Diabetes Care 31:4401-8365, 2008). The eAG is not equivalent to a fasting glucose. Blood 12/19/2023 4:11 AM CDT 12/19/2023 7:28 AM CDT us Marty Clarke MD LAB BLOOD ORDERABLE S Final Result [facility] [address] Department [place] [address] * Lipid panel (12/04/2023 3:08 PM CDT) SCRIBED Cholesterol, Total 171 <200 EXTERNAL LAB SCRIBED HDL 56 >40 EXTERNAL LAB SCRIBED LDL 80 <100 EXTERNAL LAB SCRIBED Triglycerides 217 <150 EXTERNAL LAB Blood Historical Provider LAB BLOOD ORDERABLES Edit ed Result - Final EXTERNAL LAB from Last 3 Months or Most Recently Relevant to Health Maintenance Insurance UHC MEDICARE ADVANTAGE [facility] MEDIC[facility] Address: [facility] [address] [place] [address] [facility] MEDICARE Address: [address] [address] Advance Directives For more information, please contact: [phone] Documents on File Type Date Recorded Patient Meter Tester Primary Expl anation ADVANCE DIRECTIVE 01/26/2024 4:25 PM POLST - Phys Order for PT Preferences * Full Code (Latest Code Status on File) Date Activated Date Inactivated Comments 01/18/2024 6:52 PM 01/25/2024 8:13 PM * Full Code Date Activated Date Inactivated Comments 12/17/2023 2:54 PM 01/12/2024 9:23 PM Care Teams Cell Changer Relationship Specialty Start Date End Date Nory Pabon MD PCP - General Family Medicine 06/19/22 Perry Leyva MD Consulting Physician Nephrology 01/25/24
--- OUTSIDE RECORDS SUMMARY | 2024-09-20 10:12 | XMS_ITS | Continuity of Care Document ---
Author Organization [facility] Address [address] [place] [address] [place] [address] Phone Care Team Providers Care Logistics Engineer Name Role Phone Regina Ortiz Unavailable Unavailable [...] Providers Copied on Encounter Office/[place]pat [place], [facility] [place] [address] [place] [address] [address], [place], [place], [id number], [place] tel:[phone] [facility] No Information 8 0 Diana May [address], [place], [address], [place]. tel:[phone] Office/outpat ient Visit, [facility] [place], [address], [place], [place], [id number], [place] tel:[phone] [facility] No Information Mar-2 3-201 0 Diana May [address], [place], [place], [facility], . tel:[phone] [facility] Eye [facility], [address] [place] [address] [address], [place], [place], [id number], tel:[phone] [facility] No Information Dec-2 6-200 8 Diana May [address], [place], [facility], . tel:[phone] [facility] Eye [facility], [address] [place] [address] [address], [place], [place], [id number], [place] tel:[phone] [facility] No Information Nov-1 -200 8 Diana May [address], [place], [facility], . tel:[phone] [facility], [address] [place] [address] [address], [place], [place], [id number], [place] tel:[phone] [facility] No Information Oct-0 9-200 7 Diana May [address], [place], [facility], . tel:[phone] [facility], [address], [place], [place], [id number], [place] tel:[phone] [facility] No Information May-0 1-200 7 Diana May [address], [place], [facility], [place]. tel:[phone] Referring Provider: Regina Garcia, [address], [place], [facility]. tel:[phone] [facility] Eye [facility], [address] [place] [address] [address], [place], [place], [id number], [place] tel:[phone] [facility] No Information Apr-1 6-200 7 Diana May [address] , [address], [place], [address], [place]. tel:[phone] Referring Provider: Regina Garcia, [address] [facility] [address], [place], [address]. tel:[phone] Office/outpat ient Visit, [facility] [place] [address], [place], [place], [id number], [place] tel:[phone] [facility] No Information Diana Tapia. [address] [facility] , [address], [place], [address], [place]. tel:[phone] Family History Family Member Type Diagnosis Age At Onset No Information Payers Payer name Insurance type Covered republican ID Authoriza tion(s) No Information Social History [...]
--- OUTSIDE RECORDS SUMMARY | 2024-09-20 10:12 | XMS_ITS ---
Author Organization [facility] [address] Address [address] [place] [address] Care Team Providers Care Manager Social Media Name Role Phone Nory Pabon MD Primary Care Provider [phone] Perry Leyva MD Unavailable [phone] Dialysis Access Sites Type Status Location [...] 1 tablet (100 mcg total) by mouth retort setter before breakfast 01/09/20 24 Active calcitRIOL (ROCALTROL) [...] off HD, continue MWF for now at [facility] via tunnelled catheter chest wall Dr [...] drink = 0.6 oz pur e alcohol) [facility] Utilities Answer Date Recorded In the past 12 months has [employer], gas, oil, or water [employer] threatened to shut off services in your [...] How often do you attend chur or mu-ism services? 1 to 4 times per year 01/19/2024 Do you belong to any clubs o r organizations such as adventist groups, unions, fraternal or athletic groups, or [...] any time in the past 12 m onths, were you homeless or living in a assisted (including now)? No 01/19/2024 Personal Safety Answer Date Recorded Have you ever been in or are you currently in a harmful physical or emotional relationship or is someone making you feel afraid or unsafe? Denies 01/18/2024 Comments No Sex and Gender Information Value Date Recorded Sex Assigned at Not on file Legal Sex Female 2:20 AM RESIDENTIAL INSURANCE INSPECTOR Gender Identity Not on file Sexual Orientation Not on file Last Filed Vital Signs Vital Sign Reading Time Taken Comments Blood Pressure 108/70 07/21/2024 8:06 AM RESIDENTIAL INSURANCE INSPECTOR Pulse 75 07/21/2024 8:06 AM RESIDENTIAL INSURANCE INSPECTOR Temperature 36.5 C (97.7 F) 01/25/2024 11:18 AM CDT Respiratory Rate 18 01/25/2024 11:18 AM CDT Oxygen Saturation 96% 07/21/2024 8:06 AM RESIDENTIAL INSURANCE INSPECTOR Inhaled Oxygen Concentration - - Weight 69.9 kg (154 lb) 07/21/2024 8:06 AM RESIDENTIAL INSURANCE INSPECTOR Height 177.8 cm (5' 10 ) 07/21/2024 8:06 AM RESIDENTIAL INSURANCE INSPECTOR Body Mass Index 22.1 07/21/2024 8:06 AM RESIDENTIAL INSURANCE INSPECTOR Results * (ABNORMAL) eGFR (01/25/2024 2:47 AM [...] LAB BLOOD ORDERABLES Fi nal Result [facility] [address] [facility] Department [place] [address] * Colonoscopy (01/01/2024 1:29 PM CDT) Anatomical Region Laterality Modality Other Narrative Procedure Note Yusuf Alicea MD - 01/01/2024 1:29 PM CDT [facility] Endoscopy Lab Patient Name: Rosalva Marina Procedure Date: 01/01/2024 1:29 PM Date of : 1950 Admit Type: Inpatient Age: 73 Gender: Female Note Status: Finalized Attending MD: Yusuf Alicea M.D. Procedure Date: 01/01/2024 Procedure: Colonoscopy Indications: Hematochezia Providers: Yusuf Alicea M.D., Sonia White CRNA (Anesthesia Staff), Codi Mock RN, Carlene, [place] Pumper Referring MD: Notinfile Unknown Medicines: Monitored Anesthesia [...] by the physician, the nurse and the clinical pharmacy manager in the procedure room. Mental Status Examination: [...] not recommended. Procedure Code(s): --- Professional --- 65159, Colonoscopy, flexible; with biopsy, singleor multiple Diagnosis Code(s): --- Professional --- D12.5, Benign neoplasm of sigmoid colon K92.1, Melena (includes Hematochezia) K57.30, Diverticulosis of large intestine without perforation or abscess without bleeding CPT copyright 2020 [employer]. All rights reserved. The codes documented in this report are preliminary and upon linen grader reviewmay be revised to meet current compliance [...] 19. Hep B core IgM Nonreactive Nonreactive [facility] Comment: Interpretive Data If HepB Core IgM [...] OR DERABLES Final Result Performing Organization Address City/State/[facility] Phone Number [facility] [address] Department [place] [address] * (ABNORMAL) Hemoglobin A1c (12/19/2023 4:11 AM CDT) Hgb A1C 8.2(H) 4.0 - 5.6 % Estimated Average Glucose 189 mg/dL [facility] Comment: The ADA recommends reporting an estimated Average Glucose (eAG) with all Hemoglobin A1c results using the equation derived from a study of 507 normal and diabetic adults. Minority populations were underrepresented and children were not included. (Diabetes Care 31:4535-0179, 2008). The eAG is not equivalent to a fasting glucose. Blood 12/19/2023 4:11 AM CDT 12/19/2023 7:28 AM CDT us Marty Clarke MD LAB BLOOD ORDERABLE S Final Result [facility] [address] Department [place] [address] * Lipid panel (12/04/2023 3:08 [...]
--- OUTSIDE RECORDS SUMMARY | 2024-09-20 10:12 | XMS_ITS | Encounter Summary ---
Author Organization [facility] Address [address] [place] [address] Phone Care Team Providers Care Spike Machine Feeder Name Role Phone Aminta Enamorado MD Primary Care [facility] Encounter Details Date Type Department Care Team (Late st Contact Info) Description 03/11/2024 [facility] [address] [place] [address] Perry Leyva MD [facility] [address] [address] Type 2 diabetes mellitus without [...] - 12.00 10(3)/mcL 03/11/2024 2:17 PM CDT [facility] RBC 3.62(L) 3.80 - 5.30 10(6)/mcL 03/11/2024 2:17 PM CDT [facility] HEMOGLOBIN (HGB) 10.9(L) 12.0 - 15.8 g/dL 03/11/2024 2:17 PM CDT [facility] HEMATOCRIT (HCT) 33.0(L) 36.0 - 47.0 % 03/11/2024 2:17 PM CDT [facility] MCV 91.2 82.0 - 96.0 fL 03/11/2024 2:17 PM CDT [facility] MCH 30.1 26.0 - 34.0 pg 03/11/2024 2:17 PM CDT [facility] MCHC 33.0 31.0 - 36.0 g/dL 03/11/2024 2:17 PM CDT [facility] PLATELET COUNT 158 140 - 440 10(3)/mcL 03/11/2024 2:17 PM CDT [facility] RDW 13.2 11.8 - 15.5 % 03/11/2024 2:17 PM CDT [facility] MPV 11.1 9.7 - 12.4 fL 03/11/2024 2:17 PM CDT [facility] NEUTROPHILS 65.3 47.0 - 73.0 % 03/11/2024 2:17 PM CDT [facility] LYMPHOCYTES 22.4 18.0 - 42.0 % 03/11/2024 2:17 PM CDT [facility] MONOCYTES 11.1 4.0 - 12.0 % 03/11/2024 2:17 PM CDT [facility] EOSINOPHILS 0.6 0.0 - 5.0 % 03/11/2024 2:17 PM CDT [facility] BASOPHILS 0.6 0.0 - 1.0 % 03/11/2024 2:17 PM CDT [facility] ABSOLUTE NEUTROPHILS 4.71 1.60 - 7.70 10(3)/mcL 03/11/2024 2:17 PM CDT [facility] ABSOLUTE LYMPHOCYTES 1.61 1.30 - 3.20 10(3)/mcL 03/11/2024 2:17 PM CDT [facility] ABSOLUTE MONOCYTES 0.80 0.20 - 1.00 10(3)/mcL 03/11/2024 2:17 PM CDT [facility] ABSOLUTE EOSINOPHIL 0.04 0.00 - 0.40 10(3)/mcL 03/11/2024 2:17 PM CDT [facility] ABSOLUTE BASOPHILS 0.04 0.00 - 0.10 10(3)/mcL 03/11/2024 2:17 PM CDT [facility] NRBC PER 100 WBC 0 03/11/20 2:17 PM CDT [facility] Blood Venipuncture / Unknown 03/11/2024 1:15 PM CDT 03/11/2024 2:14 PM CDT us Perry Leyva MD HEMATOLOGY ORDERABLES Final R esult [facility] [address] [place] [address] * (ABNORMAL) BASIC METABOLIC PANEL W/ CALCIUM TOTAL (03/11/2024 1:15 PM CDT) SODIUM 146(H) 136 - 145 mmol/L 03/11/2024 2:44 PM CDT [facility] POTASSIUM 3.5 3.5 - 5.1 mmol/L 03/11/2024 2:44 PM CDT [facility] CHLORIDE 114(H) 98 - 107 mmol/L 03/11/2024 2:44 PM CDT [facility] CO2, VENOUS 24 22 - 30 mmol/L 03/11/2024 2:44 PM CDT [facility] ANION GAP 11.5 <18.0 mmol/L 03/11/2024 2:44 PM CDT [facility] GLUCOSE 110(H) 70 - 99 mg/dL 03/11/2024 2:44 PM CDT [facility] BUN 21(H) 10 - 20 mg/dL 03/11/2024 2:44 PM CDT [facility] CREATININE, BLOOD 1.39(H) 0.60 - 1.00 mg/dL 03/11/2024 2:44 PM CDT [facility] BUN/CREATININE RATIO 15 12 - 20 ratio 03/11/2024 2:44 PM CDT [facility] CALCIUM 8.7 8.7 - 10.5 mg/dL 03/11/2024 2:44 PM CDT [facility] GFR, ESTIMATED 41(L) >=60 03/11/2024 2:44 PM CDT [facility] Comment: Creatinine Clearance is the preferred criteria for selecting drug dose adjustments in renally impaired patients. The GFR is provided as additional pertinent clinical information. GFR is reported in mL/min/1.73 sq m. Calculation based on the Chronic Kidney Disease Epidemiology Collaboration (CKD- EPI) equation refit without adjustment for race. GFR, EST. 45(L) >=60 2:44 PM CDT [facility] GFR, EST. NONAFRICAN 37(L) >=60 03/11/2024 2:44 PM CDT [facility] Blood Venipuncture / Unknown 03/11/2024 1:15 PM CDT 03/11/2024 2:14 PM CDT us Perry Leyva MD CHEMISTRY ORDERABLES Final Re sult [facility] [address] [place] [address] documented in this encounter Visit Diagnoses Diagnosis Type 2 diabetes mellitus without complications Type II or unspecified type diabetes mellitus without mention of complication, not stated as uncontrolled End stage renal disease (HCC) End stage renal disease Chronic kidney disease, unspecified documented in this encounter Care Teams Spike Machine Feeder Relationship Specialty Start Date End Date Aminta Enamorado MD [address] [place] [address] PCP - General Family Medicine 03/31/18 documented as of this encounter
--- OUTSIDE RECORDS SUMMARY | 2024-09-20 10:12 | XMS_ITS | Referral Summary ---
Author Organization [facility] [address] Address [address] [place] [address] Care Team Providers Care Pyrotechnician Name Role Phone Nory Pabon MD Primary Care Provider [phone] Perry Leyva MD Unavailable [phone] Encounters Date Type Department Care Team Description 07/21/2024 8:15 AM SEE WHEELER Office Visit [facility] Cardiology at [address] [place] [address] Radames Farrar MD Hypertrophic obstructive cardiomyopathy (HCC) (Primary Dx) from Last 3 Months Allergies Active Allergy [...] 1 tablet (100 mcg total) by mouth medical delivery technician before breakfast 01/09/20 24 Active calcitRIOL (ROCALTROL) [...] off HD, continue MWF for now at [facility] via tunnelled catheter chest wall [...] 2:04 PM CDT): With h/o HOCM, continue meenu cummingszemarilee Hematochezia 12/16/2023 Hypertrophic obstructive cardiomyopathy 04/24/20 14 [...] drink = 0.6 oz pur e alcohol) [facility] Utilities Answer Date Recorded In the past 12 months has [employer], gas, oil, or water [employer] threatened to shut off services in your [...] often do you attend chur ch or church services? 1 to 4 times per year 01/19/2024 Do you belong to any clubs o r organizations such as taoist groups, unions, fraternal or athletic groups, or [...] any time in the past 12 m [facility], were you homeless or living in a long-term (including now)? No 01/19/2024 Personal Safety Answer Date Recorded Have you ever been in or are you currently in a harmful physical or emotional relationship or is someone making you feel afraid or unsafe? Denies 01/18/2024 Comments No Sex and Gender Information Value Date Recorded Sex Assigned at Not on file Legal Sex Female 2:20 AM SEE WHEELER Gender Identity Not on file Sexual Orientation Not on file Last Filed Vital Signs Vital Sign Reading Time Taken Comments Blood Pressure 108/70 07/21/2024 8:06 AM SEE WHEELER Pulse 75 07/21/2024 8:06 AM SEE WHEELER Temperature 36.5 C (97.7 F) 01/25/2024 11:18 AM CDT Respiratory Rate 18 01/25/2024 11:18 AM CDT Oxygen Saturation 96% 07/21/2024 8:06 AM SEE WHEELER Inhaled Oxygen Concentration - - Weight 69.9 kg (154 lb) 07/21/2024 8:06 AM SEE WHEELER Height 177.8 cm (5' 10 ) 07/21/2024 8:06 AM SEE WHEELER Body Mass Index 22.1 07/21/2024 8:06 AM SEE WHEELER Plan of Treatment Not on file Medical Devices Implanted Type Area Glass Selector Device Identifier Shelf Expiration Date Model / Serial / Lot [facility] ClearAccess Duramax Vascpak Safesheath D-Pro 15.5fr 28cm Kit Catheter [id number] - [id number] Implanted:Qty: 1 on 01/06/2024 at [facility] [employer] [facility] 01/15/2026 [id number] / / [id number] Procedures Procedure Name Priority Date/Time Associated Diagnosis [...] of Race in Diagnosing Kidney Disease, JASN 202). The CKD-EPI equation should not be used for patients with unstable renal function and has not been validated in children and those over 70. Current interpretive data was last reviewed 2021. Blood 01/25/2024 2:47 AM CDT 01/25/2024 2:52 AM CDT us Jose Willis MD LAB BLOOD ORDERABLES Fi nal Result [facility] [facility] Department [place] [address] * Colonoscopy (01/01/2024 1:29 PM CDT) Anatomical Region Laterality Modality Other Narrative Procedure Note Yusuf Alicea MD - 01/01/2024 1:29 PM CDT [facility] Patient Name: Rosalva Marina Procedure Date: 01/01/2024 1:29 PM Date of : 1950 Admit Type: Inpatient Age: 73 Gender: Female Note Status: Finalized Attending MD: Yusuf Alicea M.D. Procedure Date: 01/01/2024 Procedure: Colonoscopy Indications: Hematochezia Providers: Yusuf Alicea M.D., Sonia White CRNA (Anesthesia Staff), Codi Mock RN, Carlene, Forensic Psychiatrist Referring MD: Carmen Cardenas Medicines: Monitored Anesthesia [...] by the physician, the nurse and the fast food worker in the procedure room. Mental Status Examination: [...] not recommended. Procedure Code(s): --- Professional --- 88734, Colonoscopy, flexible; with biopsy, singleor multiple Diagnosis Code(s): --- Professional --- D12.5, Benign neoplasm of sigmoid colon K92.1, Melena (includes Hematochezia) K57.30, Diverticulosis of large intestine without perforation or abscess without bleeding CPT copyright 2020 [employer]. All rights reserved. The codes documented in this report are preliminary and upon road cutter reviewmay be revised to meet current compliance [...] 19. Hep B core IgM Nonreactive Nonreactive [facility] Comment: Interpretive Data If HepB Core IgM Ab is reported as Equivocal, a new sample should be drawn in two weeks for testing. Current interpretive data was last revised on 19. Hep C Ab Nonreactive Nonreactive [facility] Comment: Interpretive Data Nonreactive: Antibodies to HCV [...] last revised on 2019. HepBsAg Nonreactive Nonreactive [facility] Blood 12/23/2023 11:5 4 AM CDT 12/23/2023 12:12 PM CDT Ping Funez MD LAB MICROBIOLOGY - GENERAL OR DERABLES Final Result [facility] [address] Department [place] [address] * (ABNORMAL) Hemoglobin A1c (12/19/2023 4:11 AM CDT) Hgb A1C 8.2(H) 4.0 - 5.6 % Estimated Average Glucose 189 mg/dL [facility] Comment: The ADA recommends reporting an estimated Average Glucose (eAG) with all Hemoglobin A1c results using the equation derived from a study of 507 normal and diabetic adults. Minority populations were underrepresented and children were not included. (Diabetes Care 31:6391-9247, 2008). The eAG is not equivalent to a fasting glucose. Blood 12/19/2023 4:11 AM CDT 12/19/2023 7:28 AM CDT us Marty Clarke MD LAB BLOOD ORDERABLE S Final Result Performing Organization Address City/[facility]/ZIP Co de Phone Number [facility] [address] Department [place] [address] * Lipid panel (12/04/2023 3:08 PM CDT) SCRIBED Cholesterol, Total 171 <200 EXTERNAL LAB SCRIBED HDL 56 >40 EXTERNAL LAB SCRIBED LDL 80 <100 EXTERNAL LAB SCRIBED Triglycerides 217 <150 EXTERNAL LAB Blood Historical Provider LAB BLOOD ORDERABLES Edit ed Result - Final Performing Organization Address City/[facility]/ZIP Co de Phone Number EXTERNAL LAB from Last 3 Months or Most Recently Relevant to Health Maintenance Insurance [facility] [employer] ADVANTAGE [facility] [employer] Advance Directives For more information, please contact: [phone] Documents on File Type Date Recorded Patient Flatbed Press Operator Expl anation ADVANCE DIRECTIVE 01/26/2024 4:25 PM POLST - Phys Order for PT Preferences * Full Code (Latest Code Status on File) Date Activated Date Inactivated Comments 01/18/2024 6:52 PM 01/25/2024 8:13 PM * Full Code Date Activated Date Inactivated Comments 12/17/2023 2:54 PM 01/12/2024 9:23 PM Care Teams Pyrotechnician Relationship Specialty Start Date End Date Nory Pabon MD PCP - General Family Medicine 06/19/22 Perry Leyva MD Consulting Physician Nephrology 01/25/24
[2024-09-20 10:46] LABS: Alanine Aminotransferase 19 U/L (6-35); Albumin Level 3.8 g/dL (3.5-5.1); Alkaline Phosphatase 93 U/L (38-126); Anion Gap 11 mmol/L (4-12); Aspartate Amino Transferase 22 U/L (14-36); Bilirubin,Total 0.6 mg/dL (0.2-1.3); Blood Urea Nitrogen 26 mg/dL (7-17); Calcium 9.3 mg/dL (8.4-10.2); Carbon Dioxide 23 mmol/L (22-30); Chloride 110 mmol/L (98-107); Estimated Glomerular Filt Rate 37; Glucose 104 mg/dL (65-110); Potassium 3.7 mmol/L (3.4-5.0); Sodium 144 mmol/L (137-145)
[2024-09-21 18:29] LABS: CA-125 14 U/mL (<35)
== END 2024-09-20 09:37 | disposition home or self-care (01) ==
LOC: ANHLAB 09:36
PROVIDERS: PCP Family Medicine; Visit Provider Internal Medicine Hematology & Oncology
DX: C54.1 Malignant neoplasm of endometrium (principal); I82.0 Budd-Chiari syndrome
CPT/HCPCS: 36415; 80047; 80053; 85025; 86304

== ENCOUNTER 2025-02-09 12:37 | Outpatient (CLI) | payer MEDICARE, SELFPAY ==
--- NOTE | ~2025-02-09 | US_ITS ---
US soft tissue head and neck 02/09/2025 12:46 Indication: Palpable area in the neck for 2 weeks Procedure: Soft tissue ultrasound of the neck in the area of palpable concern Comparison: No prior studies for comparison. Findings: There is normal heterogeneous soft tissues without abnormal mass, fluid collection or asymmetry. Impression: 1: Normal soft tissue ultrasound without discrete mass. Reviewed, dictated and finalized at location O. Impression: 1: Normal soft tissue ultrasound without discrete mass.
== END 2025-02-09 12:38 | disposition home or self-care (01) ==
LOC: MICIMG 12:38
PROVIDERS: PCP Family Medicine; Visit Provider Family Medicine
DX: R22.1 Localized swelling, mass and lump, neck (principal)
CPT/HCPCS: 76536